=== PATIENT | male | born 1950 | race Caucasian/White ===

== ENCOUNTER → 2018-04-25 | Outpatient (REF) | payer MEDICARE ==
[2018-04-25 12:55] LABS: HEMATOCRIT 45.4 % (42.0-52.0); HEMOGLOBIN 15.2 g/dl (13.5-17.5); MEAN CORPUSCULAR HEMOGLOBIN 29.8 pg (27.0-33.0); MEAN CORPUSCULAR HGB CONC 33.5 g/dl (32.0-36.5); PLATELET COUNT, AUTOMATED 232 10^3/uL (150-450); RED CELL DISTRIBUTION WIDTH 14.9 % (11.5-14.5); WHITE BLOOD COUNT 7.1 10^3/uL (4.0-10.0)
[2018-04-25 13:32] LABS: ALBUMIN/GLOBULIN RATIO 1.18 (1.00-1.93); ALKALINE PHOSPHATASE 89 U/L (45-117); ALT/SGPT 34 U/L (12-78); ANION GAP 10 MEQ/L (8-16); AST/SGOT 24 U/L (7-37); BILIRUBIN,TOTAL 0.4 MG/DL (0.2-1.0); BLOOD UREA NITROGEN 28 MG/DL (7-18); CALCIUM LEVEL 9.6 MG/DL (8.8-10.2); CARBON DIOXIDE LEVEL 25 MEQ/L (21-32); CHLORIDE LEVEL 104 MEQ/L (98-107); CHOLESTEROL LEVEL 246 MG/DL (<200); CHOLESTEROL RISK RATIO 4.555 (<5); CREATININE FOR GFR 0.87 MG/DL (0.70-1.30); FREE T4 1.02 NG/DL (0.76-1.46); GLOMERULAR FILTRATION RATE > 60.0 (>49); GLUCOSE, FASTING 137 MG/DL (70-100); HDL CHOLESTEROL 54 MG/DL (>40); NON-HDL-C 192 MG/DL; POTASSIUM SERUM 4.3 MEQ/L (3.5-5.1); SODIUM LEVEL 139 MEQ/L (136-145); TOTAL PROTEIN 7.4 GM/DL (6.4-8.2); TRIGLYCERIDES LEVEL 453 MG/DL (<150)
[2018-04-25 13:38] LABS: MALB URINE SIEMENS 89.4 MG/L; MAU/CREAT RATIO 95.1 MCG/MG (0.0-30.0)
[2018-04-25 13:40] LABS: TOTAL 25(OH) VITAMIN D 24.2 NG/ML (30.0-100.0)
[2018-04-25 14:11] LABS: ESTIMATED AVERAGE GLUCOSE 166 MG/DL (60-110); HEMOGLOBIN A1c 7.4 %
== END ==
LOC: M SFHCADAM 08:25
DX: E11.9 Type 2 diabetes mellitus without complications (principal); I10 Essential (primary) hypertension; E78.00 Pure hypercholesterolemia, unspecified
CPT/HCPCS: 84443

== ENCOUNTER 2018-06-12 07:45 | Day surgery (SDC) | payer MEDICARE ==
[2018-06-12] MEDS: NS 1,000 ML IV (08:15)
[2018-06-12] MEDS ORDERED: PROPOFOL 200 MG/20 ML VIAL As Ordered ×2 (08:59→09:09)
[2018-06-12] MEDS ORDERED: LIDOCAINE 2% INJ 100 MG/5 ML SDV (FOR ANES.) As Ordered (08:59)
[2018-06-12] MEDS ORDERED: ONDANSETRON 4MG/2ML VIAL (J2405) As Ordered (08:59)
== END 2018-06-12 09:47 | disposition home or self-care (01) ==
LOC: M OPP 07:45
DX: Z12.11 Encounter for screening for malignant neoplasm of colon (principal); Z80.0 Family history of malignant neoplasm of digestive organs; Z86.010 Personal history of colon polyps; Z86.19 Personal history of other infectious and parasitic diseases; K62.89 Other specified diseases of anus and rectum; K64.4 Residual hemorrhoidal skin tags; K64.8 Other hemorrhoids; K57.30 Diverticulosis of large intestine without perforation or abscess without bleeding; I10 Essential (primary) hypertension; E78.5 Hyperlipidemia, unspecified; E11.9 Type 2 diabetes mellitus without complications; K52.9 Noninfective gastroenteritis and colitis, unspecified; K21.9 Gastro-esophageal reflux disease without esophagitis; R12 Heartburn; F41.9 Anxiety disorder, unspecified; Z85.46 Personal history of malignant neoplasm of prostate; Z92.3 Personal history of irradiation; J45.909 Unspecified asthma, uncomplicated; G47.8 Other sleep disorders; G47.30 Sleep apnea, unspecified; R06.83 Snoring; Z87.442 Personal history of urinary calculi; E66.9 Obesity, unspecified; Z88.1 Allergy status to other antibiotic agents; Z88.0 Allergy status to penicillin; Z88.8 Allergy status to other drugs, medicaments and biological substances; Z79.4 Long term (current) use of insulin; Z79.899 Other long term (current) drug therapy; Z80.42 Family history of malignant neoplasm of prostate
CPT/HCPCS: G0105

== ENCOUNTER → 2018-09-26 | Outpatient (REF) | payer MEDICARE ==
[~2018-09-26] MED LIST: ACTO30TA15 PO; ADV100INH INH; ALIG4CAP PO; BUPR150T5 PO; CLIN150C14 PO; FISH7.5C PO; GLIP10TA18 PO; INVO300T PO; LIPI80TA PO; NEUR600T PO; POTA10TA16 PO; PROZ40CA PO; RANI75TA15 PO; SOLI1INJ SC; VENTAER INH; ZEST1TAB3 PO; ZYLO300T6 PO
[2018-09-26 13:30] LABS: ALBUMIN 3.8 GM/DL (3.2-5.2); ALT/SGPT 26 U/L (12-78); BILIRUBIN,TOTAL 0.6 MG/DL (0.2-1.0); BLOOD UREA NITROGEN 22 MG/DL (7-18); CALCIUM LEVEL 9.6 MG/DL (8.8-10.2); CARBON DIOXIDE LEVEL 26 MEQ/L (21-32); CHLORIDE LEVEL 101 MEQ/L (98-107); CREATININE FOR GFR 0.89 MG/DL (0.70-1.30); GLOMERULAR FILTRATION RATE > 60.0 (>49); GLUCOSE, FASTING 138 MG/DL (70-100); SODIUM LEVEL 136 MEQ/L (136-145); TOTAL PROTEIN 7.5 GM/DL (6.4-8.2)
[2018-09-26 13:42] LABS: HEMOGLOBIN A1c 7.7 %
== END ==
LOC: M SFHCADAM 08:26
PROVIDERS: ATTEND Physician Assistant
DX: E11.29 Type 2 diabetes mellitus with other diabetic kidney complication (principal); E78.2 Mixed hyperlipidemia

== ENCOUNTER → 2018-12-07 | Outpatient (REF) | payer MEDICARE | LOC: M LAB REF 13:35 | PROVIDERS: ATTEND Otolaryngology | DX: L72.3 Sebaceous cyst (principal) ==

== ENCOUNTER → 2019-01-08 | Outpatient (REF) | payer MEDICARE | LOC: M SFHCADAM 10:10 | PROVIDERS: ATTEND Nurse Practitioner Family | DX: C61 Malignant neoplasm of prostate (principal) ==

== ENCOUNTER → 2019-02-07 | Outpatient (CLI) | payer MEDICARE ==
--- NOTE | 2019-02-07 16:00 | REP ---
Chest two views HISTORY: Shortness of breath Comparison: None The lungs are clear. The cardiac silhouette is enlarged. The pulmonary vasculature is normal in appearance. Degenerative change is present in the thoracic spine. IMPRESSION: Cardiomegaly. Electronically Signed by Baldev Leong MD 02/07/2019 03:52 P
== END ==
LOC: M ADAMS 14:50
PROVIDERS: ATTEND Internal Medicine Cardiovascular Disease
DX: I51.7 Cardiomegaly (principal); M51.34 Other intervertebral disc degeneration, thoracic region; R06.02 Shortness of breath

== ENCOUNTER → 2019-02-07 | Outpatient (CLI) | payer MEDICARE ==
[2019-02-07 16:24] LABS: BASO % 0.2 % (0.0-1.0); EOS # 0.2 10^3/uL (0.0-0.50); EOS % 1.9 % (0.0-3.0); HEMATOCRIT 47.6 % (42.0-52.0); HEMOGLOBIN 15.8 g/dl (13.5-17.5); LYMPH # 1.2 10^3/uL (1.5-4.5); MEAN CORPUSCULAR HEMOGLOBIN 30.3 pg (27.0-33.0); MEAN CORPUSCULAR HGB CONC 33.2 g/dl (32.0-36.5); MEAN CORPUSCULAR VOLUME 91.2 fl (80.0-96.0); MONO # 0.6 10^3/uL (0.0-0.8); MONO % 6.9 % (0.0-5.0); NEUTROPHILS # 6.8 10^3/uL (1.8-7.7); NEUTROPHILS % 76.7 % (36.0-66.0); PLATELET COUNT, AUTOMATED 233 10^3/uL (150-450); RED BLOOD COUNT 5.22 10^6/uL (4.30-6.10); WHITE BLOOD COUNT 8.9 10^3/uL (4.0-10.0)
[2019-02-07 16:46] LABS: ALBUMIN 3.9 GM/DL (3.2-5.2); ALT/SGPT 30 U/L (12-78); BILIRUBIN,TOTAL 0.6 MG/DL (0.2-1.0); BLOOD UREA NITROGEN 18 MG/DL (7-18); CALCIUM LEVEL 10.3 MG/DL (8.8-10.2); CARBON DIOXIDE LEVEL 28 MEQ/L (21-32); CHLORIDE LEVEL 103 MEQ/L (98-107); CREATININE FOR GFR 1.02 MG/DL (0.70-1.30); FERRITIN 32 NG/ML (26-388); GLOMERULAR FILTRATION RATE > 60.0 (>49); GLUCOSE, FASTING 108 MG/DL (70-100); NT-PRO BNP 33 PG/ML (<125); POTASSIUM SERUM 3.9 MEQ/L (3.5-5.1); SODIUM LEVEL 141 MEQ/L (136-145); TOTAL PROTEIN 7.4 GM/DL (6.4-8.2)
== END ==
LOC: M LABDRWAD 14:46
PROVIDERS: ATTEND Internal Medicine Cardiovascular Disease
DX: R06.02 Shortness of breath (principal); I51.7 Cardiomegaly; M51.34 Other intervertebral disc degeneration, thoracic region

== ENCOUNTER → 2019-05-20 | Outpatient (REF) | payer MEDICARE ==
[2019-05-20 12:45] LABS: ALBUMIN 3.9 GM/DL (3.2-5.2); ALT/SGPT 31 U/L (12-78); BILIRUBIN,TOTAL 0.7 MG/DL (0.2-1.0); BLOOD UREA NITROGEN 26 MG/DL (7-18); CALCIUM LEVEL 9.8 MG/DL (8.8-10.2); CARBON DIOXIDE LEVEL 27 MEQ/L (21-32); CHLORIDE LEVEL 104 MEQ/L (98-107); GLOMERULAR FILTRATION RATE > 60.0 (>49); GLUCOSE, FASTING 123 MG/DL (70-100); POTASSIUM SERUM 4.1 MEQ/L (3.5-5.1); SODIUM LEVEL 141 MEQ/L (136-145)
[2019-05-20 12:55] LABS: HEMOGLOBIN A1c 6.9 %
== END ==
LOC: M SFHCADAM 07:49
PROVIDERS: ATTEND Physician Assistant
DX: E11.29 Type 2 diabetes mellitus with other diabetic kidney complication (principal)

== ENCOUNTER → 2019-10-29 | Outpatient (REF) | payer MEDICARE ==
[2019-10-29 20:35] LABS: HEMATOCRIT 45.2 % (42.0-52.0); HEMOGLOBIN 14.8 g/dl (13.5-17.5); MEAN CORPUSCULAR HGB CONC 32.7 g/dl (32.0-36.5); MEAN CORPUSCULAR VOLUME 91.5 fl (80.0-96.0); PLATELET COUNT, AUTOMATED 209 10^3/uL (150-450); RED BLOOD COUNT 4.94 10^6/uL (4.30-6.10); WHITE BLOOD COUNT 8.6 10^3/uL (4.0-10.0)
[2019-10-29 20:58] LABS: HEMOGLOBIN A1c 7.8 %
[2019-10-29 20:59] LABS: ALBUMIN 3.8 GM/DL (3.2-5.2); ALT/SGPT 26 U/L (12-78); BILIRUBIN,TOTAL 0.5 MG/DL (0.2-1.0); BLOOD UREA NITROGEN 24 MG/DL (7-18); CALCIUM LEVEL 9.7 MG/DL (8.8-10.2); CARBON DIOXIDE LEVEL 25 MEQ/L (21-32); CHLORIDE LEVEL 106 MEQ/L (98-107); CREATININE FOR GFR 0.89 MG/DL (0.70-1.30); GLOMERULAR FILTRATION RATE > 60.0 (>49); GLUCOSE, FASTING 156 MG/DL (70-100); NT-PRO BNP 92 PG/ML (<125); SODIUM LEVEL 139 MEQ/L (136-145)
== END ==
LOC: M SFHCADAM 15:19
PROVIDERS: ATTEND Physician Assistant
DX: I50.31 Acute diastolic (congestive) heart failure (principal); I87.2 Venous insufficiency (chronic) (peripheral); E11.29 Type 2 diabetes mellitus with other diabetic kidney complication
CPT/HCPCS: 80053; 83036; 83880; 85027; G0463

== ENCOUNTER → 2019-11-12 | Outpatient (REF) | payer MEDICARE ==
[2019-11-12 16:53] LABS: ALBUMIN 3.8 GM/DL (3.2-5.2); ALT/SGPT 33 U/L (12-78); BILIRUBIN,TOTAL 0.6 MG/DL (0.2-1.0); BLOOD UREA NITROGEN 25 MG/DL (7-18); CALCIUM LEVEL 9.6 MG/DL (8.8-10.2); CARBON DIOXIDE LEVEL 27 MEQ/L (21-32); CHLORIDE LEVEL 106 MEQ/L (98-107); CREATININE FOR GFR 1.08 MG/DL (0.70-1.30); GLOMERULAR FILTRATION RATE > 60.0 (>49); GLUCOSE, FASTING 152 MG/DL (70-100); SODIUM LEVEL 140 MEQ/L (136-145); TOTAL PROTEIN 7.3 GM/DL (6.4-8.2)
== END ==
LOC: M SFHCADAM 14:47
PROVIDERS: ATTEND Physician Assistant
DX: I87.2 Venous insufficiency (chronic) (peripheral) (principal)

== ENCOUNTER → 2019-12-09 | Outpatient (REF) | payer MEDICARE ==
[2019-12-09 12:41] LABS: HEMATOCRIT 46.1 % (42.0-52.0); HEMOGLOBIN 15.5 g/dl (13.5-17.5); MEAN CORPUSCULAR HEMOGLOBIN 29.9 pg (27.0-33.0); MEAN CORPUSCULAR HGB CONC 33.6 g/dl (32.0-36.5); PLATELET COUNT, AUTOMATED 205 10^3/uL (150-450); RED BLOOD COUNT 5.18 10^6/uL (4.30-6.10); WHITE BLOOD COUNT 7.1 10^3/uL (4.0-10.0)
[2019-12-09 13:02] LABS: HEMOGLOBIN A1c 7.5 %
[2019-12-09 13:14] LABS: MALB URINE SIEMENS 39.4 MG/L; MAU/CREAT RATIO 27.1 MCG/MG (0.0-30.0)
[2019-12-09 13:21] LABS: ALBUMIN 3.7 GM/DL (3.2-5.2); ALT/SGPT 33 U/L (12-78); BILIRUBIN,TOTAL 0.6 MG/DL (0.2-1.0); BLOOD UREA NITROGEN 33 MG/DL (7-18); CALCIUM LEVEL 9.2 MG/DL (8.8-10.2); CARBON DIOXIDE LEVEL 29 MEQ/L (21-32); CHLORIDE LEVEL 101 MEQ/L (98-107); CHOLESTEROL LEVEL 222 MG/DL (<200); CHOLESTEROL RISK RATIO 4.625 (<5); CREATININE FOR GFR 1.07 MG/DL (0.70-1.30); FREE T4 1.14 NG/DL (0.76-1.46); GLOMERULAR FILTRATION RATE > 60.0 (>49); GLUCOSE, FASTING 163 MG/DL (70-100); HDL CHOLESTEROL 48 MG/DL (>40); NON-HDL-C 174 MG/DL; POTASSIUM SERUM 3.7 MEQ/L (3.5-5.1); PROSTATIC SPECIFIC AG MONITOR 0.14 NG/ML (< 4.00); SODIUM LEVEL 138 MEQ/L (136-145); TOTAL PROTEIN 7.2 GM/DL (6.4-8.2); TRIGLYCERIDES LEVEL 423 MG/DL (<150)
== END ==
LOC: M SFHCADAM 09:22
PROVIDERS: ATTEND Physician Assistant
DX: E78.2 Mixed hyperlipidemia (principal); E08.40 Diabetes mellitus due to underlying condition with diabetic neuropathy, unspecified; Z87.442 Personal history of urinary calculi; J45.30 Mild persistent asthma, uncomplicated; C61 Malignant neoplasm of prostate

== ENCOUNTER → 2019-12-17 | Outpatient (REF) | payer MEDICARE ==
[~2019-12-17] MED LIST changes: +BUPR-365 PO; +CEPH500C PO; +COLE625TAB PO; +JARD1TAB3 PO; +POTA10808 PO; +TORS10TA3 PO
== END ==
LOC: M LAB REF 12:17
PROVIDERS: ATTEND Podiatrist
DX: M79.672 Pain in left foot (principal)

== ENCOUNTER 2019-12-18 18:36 | Inpatient (IN) | payer MEDICARE ==
[~2019-12-18] VITALS: Ht 180.3 cm; Wt 120.1 kg
[~2019-12-18 18:36] MED LIST changes: -BUPR-365 PO; -CEPH500C PO; -COLE625TAB PO; -JARD1TAB3 PO; -POTA10808 PO; -TORS10TA3 PO
[2019-12-18] MEDS ORDERED: COLE625TAB PO (19:12)
[2019-12-18] MEDS ORDERED: JARD1TAB3 PO (19:12)
[2019-12-18] MEDS ORDERED: SOLI1INJ SC (19:12)
[2019-12-18] MEDS ORDERED: CEPH500C PO (19:12)
[2019-12-18] MEDS ORDERED: POTA10808 PO (19:12)
[2019-12-18] MEDS ORDERED: TORS10TA3 PO (19:12)
[2019-12-18 19:30] LABS: BASO % 0.1 % (0.0-1.0); EOS # 0.1 10^3/uL (0.0-0.5); EOS % 0.6 % (0.0-3.0); HEMATOCRIT 38.8 % (42.0-52.0); HEMOGLOBIN 12.9 g/dl (13.5-17.5); LYMPH # 0.7 10^3/uL (1.5-5.0); LYMPH % 4.7 % (24.0-44.0); MEAN CORPUSCULAR HEMOGLOBIN 29.1 pg (27.0-33.0); MEAN CORPUSCULAR HGB CONC 33.2 g/dl (32.0-36.5); MEAN CORPUSCULAR VOLUME 87.6 fl (80.0-96.0); MONO # 1.1 10^3/uL (0.0-0.8); MONO % 7.6 % (0.0-5.0); NEUTROPHILS # 12.3 10^3/uL (1.5-8.5); NEUTROPHILS % 86.5 % (36.0-66.0); PLATELET COUNT, AUTOMATED 217 10^3/uL (150-450); RED BLOOD COUNT 4.43 10^6/uL (4.30-6.10); WHITE BLOOD COUNT 14.2 10^3/uL (4.0-10.0)
[2019-12-18] MEDS ORDERED: NS 1,000 ML IV ONE (19:30)
[2019-12-18] MEDS ORDERED: cefTRIAXone SOD 2 GM in D5W MINI-BAG PLUS 50 ML IV ONE (19:30)
[2019-12-18 19:55] LABS: ALBUMIN 2.8 GM/DL (3.2-5.2); BILIRUBIN,DIRECT 0.3 MG/DL (0.0-0.2); BILIRUBIN,TOTAL 0.9 MG/DL (0.2-1.0); CALCIUM LEVEL 8.8 MG/DL (8.8-10.2); CREATININE FOR GFR 1.55 MG/DL (0.70-1.30); GLOMERULAR FILTRATION RATE 47.8 (>49); POTASSIUM SERUM 3.9 MEQ/L (3.5-5.1); TOTAL PROTEIN 6.9 GM/DL (6.4-8.2)
[2019-12-18] MEDS ORDERED: ACETAMINOPHEN TAB 650MG DOSE (2X325MG) PO ONE (20:15)
--- NOTE | 2019-12-18 20:21 | REP ---
CHEST, PORTABLE: AP portable view of the chest is performed and compared to prior study of 02/07/2019. Cardiomegaly is again noted. There is again mild elevation of the right hemidiaphragm, unchanged. No new infiltrate is seen. Bilateral interstitial prominence is stable. IMPRESSION: Cardiomegaly and chronic changes, stable. No acute infiltrate. Electronically Signed by Marcelo Jessica MD 12/19/2019 09:08 A
[2019-12-18] MEDS ORDERED: ISOVUE-370 76% 100ML VIAL (Q9967) As Ordered ONE (20:31)
--- NOTE | 2019-12-18 22:07 | REPVR ---
PROCEDURE INFORMATION: Exam: CT Angiography Chest With Contrast Exam date and time: 12/18/2019 9:36 PM Age: 69 years old Clinical indication: Shortness of breath; Additional info: Shortness of breathe TECHNIQUE: Imaging protocol: Computed tomographic angiography of the chest with intravenous contrast. 3D rendering: MIP and/or 3D reconstructed images were created by the technologist. Radiation optimization: All CT scans at this facility use at least one of these dose optimization techniques: automated exposure control; mA and/or kV adjustment per patient size (includes targeted exams where dose is matched to clinical indication); or iterative reconstruction. Contrast material: ISOVUE 370; Contrast volume: 75 ml; Contrast route: IV; COMPARISON: SC PORTABLE CHEST X-RAY 12/18/2019 7:28 PM FINDINGS: Pulmonary arteries: There are no pulmonary emboli. Aorta: The aorta demonstrates mild atherosclerotic calcification. There is no aortic dissection or aneurysm. Lungs: Bilateral geographic ground-glass opacities most pronounced in the mid and lower lung zones likely related to atelectasis in this patient with a poor inspiratory effort. Although nonspecific, clinical correlation to exclude infection suggested. Pleural space: Bilateral pleural thickening in the lower lung zones. Heart: Cardiomegaly. There is moderate atherosclerotic calcification of the coronary arteries. Lymph nodes: Unremarkable. No enlarged lymph nodes. Bones/joints: The spine demonstrates mild degenerative changes. Soft tissues: Unremarkable. IMPRESSION: 1. Bilateral geographic ground-glass opacities most pronounced in the mid and lower lung zones likely related to atelectasis in this patient with a poor inspiratory effort. Although nonspecific, clinical correlation to exclude infection suggested. 2. Bilateral pleural thickening in the lower lung zones. 3. There is no aortic dissection or aneurysm. 4. Cardiomegaly. 5. There are no pulmonary emboli. Electronically signed by: Ryan Klein On 12/18/2019 22:07:22 PM
--- NOTE | 2019-12-18 22:44 | REPVR ---
PROCEDURE INFORMATION: Exam: US Duplex Left Lower Extremity Veins, Limited Exam date and time: 12/18/2019 10:30 PM Age: 69 years old Clinical indication: Pain; Leg, lower; Left; Additional info: Left leg swelling/cellulitis TECHNIQUE: Imaging protocol: Real-time Duplex ultrasound of the Left Lower Extremity with 2-D squires scale, color Doppler flow and spectral waveform analysis with image documentation. Limited exam focused on the left lower extremity veins. COMPARISON: No relevant prior studies available. FINDINGS: Left deep veins: Unremarkable. The common femoral, femoral, proximal profunda femoral and popliteal veins are patent without thrombus. Normal Doppler waveforms. Normal compressibility and/or augmentation response. Left superficial veins: Unremarkable. Saphenofemoral junction is patent without thrombus. Soft tissues: Unremarkable. IMPRESSION: No acute findings. No evidence of deep vein thrombosis. Electronically signed by: Ryan Klein On 12/18/2019 22:43:35 PM
[2019-12-18] MEDS ORDERED: NS 2,610 ML in IV 1 EA IV ONE (23:00)
[2019-12-19] VITALS (16 sets, daily range): BP systolic 112–120; BP diastolic 60–66; O2SAT 90–96
[2019-12-19] MEDS ORDERED: DEXTROSE 50% 50 ML SYRINGE IV PRN
[2019-12-19] MEDS ORDERED: GLUCAGON FOR INJ 1 MG VIAL (J1610) SC PRN
[2019-12-19] MEDS ORDERED: NS 1,000 ML IV ONE
[2019-12-19] MEDS ORDERED: GLUCOSE 4 GM CHEW TABLET PO PRN
[2019-12-19] MEDS ORDERED: ALBUTEROL 90 MCG/ACT 8GM HFA INHALER INH PRN (00:15)
[2019-12-19] MEDS ORDERED: NS 1,000 ML IV SCH (00:15)
[2019-12-19 00:24] LABS: C REACTIVE PROTEIN QUANTITATIV 33.6 MG/DL (0.00-0.30)
[2019-12-19 00:33] LABS: ERYTHROCYTE SEDIMENTATION RATE 60 mm/hr (0-20)
[2019-12-19] MEDS ORDERED: BUPR-365 PO (00:46)
[2019-12-19 00:57] LABS: INR 1.3; PROTHROMBIN TIME 15.9 SECONDS (11.8-14.0)
[2019-12-19 00:58] LABS: PARTIAL THROMBOPLASTIN TIME 42.6 SECONDS (25.0-38.4)
--- NOTE | 2019-12-19 01:00 | HPEPDOC ---
[facility] Medical History & Physical Date of Admission Dec 19, 2019 Date of Service: Dec 19, 2019 History and Physical CHIEF COMPLAINT: Shortness of breath and fevers HISTORY OF PRESENT ILLNESS: This is a 69-year-old male with multiple comorbidities who presented to the ER with shortness of breath and fevers for the last 2 days. He notes that his temp has been in the high of 101. Endorse having a history of asthma and does not feel like this an asthma exacerbation. He notes he feel like he can't take deep breaths and his chest feels very tight. He is very somber during the exam for his recently passed 6 days prior and he just had a viewing on Monday with his family. He states he's been on Covid precautions for the last couple weeks but did interact with his daughter and this past week. He does not believe anyone has COVID. He is also complaining chronic foot wound on his left base of his fifth toe which has been evaluated by his mineral mixer, Dr. Hess in the past 1 month. Initially he was treated with salve, which did not help so was given Cephalexin the day prior to presenting to the ER. He has noticed the erythema and edema in his left lower extremity has worsened. He described the left leg as tight and he is unable bend at the ankles and toe for they feel full. He does not complain of any pain for he has diabetes neuropathy. He does state his diabetes is relatively controlled.He did have recent medication adjustments of his diuretics and hasn't noticed any improvement of his unilateral lower extremity edema. Lastly, he has is complaing of nausea and diarrheal episodes last 24 hours. Describes the diarrhea as loose, nonbloody and watery in nature and he has had relatively 4 episodes in the last 24 hours. He does have a history of chronic diarrhea and C. difficile in 2018. In the ER he was found to have a temp of 100.9, pulse of 100, respiration 24 blood pressure 88/54 (65) pulse ox 88% on room air. He was placed on 2 L of nasal cannula and saturation improved to 92-94%, chest x-ray did not show any new infiltrates but CT angios of the chest did show ground-glass opacity, which denies hearing in the past. Left lower extremity ultrasound did not show any DVT. CBC did show a leukocytosis of 14.2 with a normal lactic acid. His hypotension did respond to fluid resuscitation and hospitalist team was then called for admission. PAST MEDICAL HISTORY: 1. DM Type 2 with Neuropathy. 2. History of prostate cancer s/p RT 2007 3. History of kidney stones due to high dose potassium 4. Hyperlipidemia 5. Hypertension 6. Mild intermittent asthma controlled with Advair 7. Rosacea 8. Anxiety - stable Buproprione and Prozac since 2011. 9. 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 10. Erectile dysfunction 11. JOHN on BIPAP. 12. Clostridium Difficile 05/2018. 13. Morbid Obesity. HOME MEDICATIONS: Please see below. ALLERGIES: Please see below PAST SURGICAL HISTORY: 1. Tonsillectomy age 8 2. Adenoidectomy age 8 3. Vasectomy 1990 4. Metal? in Middle ear bone in both ears so NO MRI'S 5. BL ear surgeries x 3 [phone] 6. Prostate Biopsy,radiation 2009 7. Hernia repair 2014 8. Cyst removed from face- Dr. Smart. 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 ETOH: Denies, Illicit drug use: Denies, CODE STATUS: Full code FAMILY HISTORY:Reviewed and noncontributory REVIEW OF SYSTEMS: 10 systems reviewed and negative other than HPI PHYSICAL EXAMINATION: VITAL SIGNS: See below GENERAL: Morbidly obese 69-year-old male laying in bed, awake alert and oriented appears short of breath when speaking greater than 6-8 words sentences HEENT: Atraumatic cephalic rosacea on the cheeks, nasal cannula, large neck g irth so cannot evaluate JVD CARDIOVASCULAR: Distant heart sounds due to large body habitus. Can't appreciate S1-S2 sounds with no audible murmurs noted. RESPIRATORY: Surprisingly clear to auscultate bilaterally in the upper and lower regions. No e-a egophony appreciated no dullness to percussion, no wheezing or rhonchi noted. ABDOMINAL: Morbidly obese soft abdomen with positive bowel sounds in all 4 quadrants. No tenderness to palpation EXTREMITIES: 2 x 3 ulcerative lesion appreciated at the base of the left fifth toe. Not measured. No discharge was expressed. Patient does not note any tenderness on palpation . Neuropathy. Numbness left foot stops below the knee. Nonpitting edema appreciated on the left foot in an very minimal 1+ pitting edema the patient on the left leg. NEUROLOGICAL: No gross focal deficits noted. Baseline neuropathy appreciated bilaterally lower extremities. PSYCHOLOGICAL: Somber LABORATORY DATA: See below. MICROBIOLOGY: Please see below. IMAGIN12/18/2019 Chest x-ray IMPRESSION: Cardiomegaly and chronic changes, stable. No acute infiltrate. Vascular ultrasound LE IMPRESSION: No acute findings. No evidence of deep vein thrombosis. CT angios the chest IMPRESSION: 1. Bilateral geographic ground-glass opacities most pronounced in the mid and lower lung zones likely related to atelectasis in this patient with a poor inspiratory effort. Although nonspecific, clinical correlation to exclude infection suggested. 2. Bilateral pleural thickening in the lower lung zones. 3. There is no aortic dissection or aneurysm. 4. Cardiomegaly. 5. There are no pulmonary emboli. ASSESSMENT & PLAN: This is a 69-year-old male with multiple comorbidities who presented to the ER with shortness of breath and fevers. PROBLEMS: 1. Acute respiratory hypoxemia unsure if this secondary to a bacterial pneumonia. Respiratory panel negative. His initial complaint coming in was shortness of breath fevers, lungs apprising really sound good on exam. PCR Co vid amplification testing in-house was negative but based on CT of the chest showing groundglass opacity and requiring oxygen which he does not need home will still send out for Covid testing and place him under PUI.. He does have multiple risk factors such as hypertension, diabetes, asthma, BMI greater than 30, and over the age of 60. Will order baseline labs at this current time with CRP, ferritin, Procardia calcitonin, LDH, d-dimer, fibrinogen and PT PTT. Antibiotics we have him on vancomycin and ceftriaxone to cover gram-positive and gram-negative. Maintain O2 >92%, At this current time, did not give hydroxychloroquine, but will need to consider it if baseline labs are not promising and oxygen requirement is going up. 2. Sepsis - possible source is left lower extremity ulcer. On exam left leg, appears swollen, erythematous and nonpitting edema. Open wound appreciated at the base of the left fifth toe. Measuring 2 x 3 cm unsure of depth. No pus discharge can be expressed. Nontender to palpation. But he does have neuropathy. Follows podiatry outpatient (Dr. Hess). Continue with vancomycin and ceftriaxone. Consult podiatry and set up telemetry medicine with Dr. Magaña for wound care recommendations. He does respond to IV fluids appropriately so will continue after successful worse with normal saline at 100 mL an hour. Does not require any pressors. MRIs cannot be done due to metal in his ears. Foot x- ray ordered. CRP ESR currently pending. Ultrasound of the left lower extremity is negative for DVTs. If suspicious of possible osteomyelitis can consider CT of the lower extremity if needed. 3. KYLE office secondary to prerenal azotemia from problem #2. Will monitor with daily BMPs will pressure did improve with fluid resuscitation. Will monitor. 4. Type 2 diabetes with neuropathy. Held home medication. Consistent carbohydrate diet with ISS before meals daily at bedtime. 5. Mild intermittent asthma. In addition to problem 1 will continue with his home Advair treatments. No wheezing on exam. 6. Hypertension. Due to problem 2 will hold home hypertensive medications. 7. Hyperlipidemia. Continue atorvastatin 8. JOHN on BiPAP. Due to problem 1 at this current time won't start his BiPAP tonight but can consider restarting it tomorrow evening. 9. History of C. difficile 2018. And a history of diarrhea from his radiation. With Recent antibiotics even though started yesterday and complaining of watery diarrhea. will obtain GI panel. 10. History of anxiety stable on bupropion and Prozac since 2011. recently last . Continue as prescribed 11. Morbid obesity. Complicates care. DVT PROPHYLAXIS: Lovenox 40mg Daily HOSPITALIST ATTENDING PHYSICIAN ADDENDUM: I have independently interviewed and examined the patient at the bedside, and agree with the aforementioned management plans and physical findings as documented by my Resident Physician. The patient's questions and concerns have been satisfactorily addressed, and the patient was encouraged to contact the hospitalist service for any new issues. Vital Signs Vital Signs Date Time Temp Pulse Resp B/P (MAP) Pulse Ox O2 Delivery O2 Flow Rate FiO2 12/18/19 22:30 98.7 88 24 97/53 (68) 90 12/18/19 21:00 Nasal Cannula 2.0 Laboratory Data Labs 24H Laboratory Tests 2 12/18/19 19:17: Immature Granulocyte % (Auto) 0.5, Neutrophils (%) (Auto) 86.5H, Lymphocytes (%) (Auto) 4.7L, Monocytes (%) (Auto) 7.6H, Eosinophils (%) (Auto) 0.6, Basophils (%) (Auto) 0.1, Neutrophils # (Auto) 12.3H, Lymphocytes # (Auto) 0.7L, Monocytes # (Auto) 1.1H, Eosinophils # (Auto) 0.1, Basophils # (Auto) 0.0, Nucleated Red B lood Cells % (auto) 0.0, Anion Gap 8, Glomerular Filtration Rate 47.8L, Lactic Acid Level 1.1, Calcium Level 8.8, Total Bilirubin 0.9, Direct Bilirubin 0.3H, Aspartate Amino Transf (AST/SGOT) 23, Alanine Aminotransferase (ALT/SGPT) 23, Alkaline Phosphatase 98, WZ-Ucu-Y-Type Natriuretic Peptide 327H, Total Protein 6.9, Albumin 2.8L, Albumin/Globulin Ratio 0.68L 12/18/19 19:18: Coronavirus (COVID-19)(PCR) NEGATIVE CBC/BMP Laboratory Tests 12/18/19 19:17 Microbiology Microbiology 12/18/19 Respiratory Panel (PCR) - Final, Complete 12/18/19 Blood Culture, Received Pending 12/18/19 Blood Culture, Received Pending Home Medications Scheduled Allopurinol (Zyloprim) 300 Mg Tab, 300 MG PO DAILY Atorvastatin Calcium (Lipitor) 80 Mg Tab, 80 MG PO DAILY Bupropion HCl (Bupropion Xl) 150 Mg Tab.er.24h, 150 MG PO DAILY Cephalexin (Cephalexin) 500 Mg Capsule, 500 MG PO Q6H started 12/17/19 for 10 days Colesevelam Hydrochloride (Welchol) 625 Mg Tablet, 1,875 MG PO BID Empagliflozin (Jardiance) 25 Mg Tablet, 25 MG PO DAILY Fluoxetine HCl (Prozac) 40 Mg Cap, 40 MG PO DAILY Gabapentin (Neurontin) 600 Mg Tab, 600 MG PO TID Glipizide (Glipizide ER) 10 Mg Tab, 10 MG PO DAILY Insulin Glargine/Lixisenatide (Soliqua 100 Unit-33 Mcg/ml Pen) 3 Ml Insuln.pen, 60 UNITS SC DAILY Lisinopril/Hydrochlorothiazide (Zestoretic 20-25 mg Tablet) 1 Tab Tab, 1 TAB PO DAILY Lyons-3/Dha/Epa/Fish Oil (Fish Oil EC 1,000 mg Softgel) 1 Cap Cap, 1 CAP PO DAILY Pioglitazone HCl (Actos) 30 Mg Tab, 30 MG PO DAILY Potassium Citrate (Potassium Citrate 10MEQ (Urocit-K)) 10 Meq Tablet.er, 10 MEQ PO BID Salmeterol/Fluticasone (Advair 100-50 Diskus) 28 Puff/Inhaler Aerp, 1 PUFF INH BID Torsemide (Torsemide) 10 Mg Tablet, 10 MG PO DAILY Scheduled PRN Albuterol Sulfate (Ventolin Hfa) 108 Mcg/Act Aer, 2 PUFF INH Q6H PRN for SHORTNE SS OF BREATH Allergies Coded Allergies: Penicillins (Verified Allergy, Mild, rash, 12/18/19) erythromycin base (Verified Allergy, Mild, RASH, 12/18/19) metformin (Verified Adverse Reaction, Mild, diarrhea, 12/18/19) MISAEL GORDON DO Dec 19, 2019 00:59 ANUSHA VILLANUEVA MD Dec 19, 2019 22:03
[2019-12-19 01:01] LABS: D-DIMER QUANT 2122.59 ng/ml (<500)
--- NOTE | 2019-12-19 02:38 | REP ---
Clinical: Swelling. Infection. Technique: AP and lateral views of the left foot. Findings: Heterotopic ossification with irregular periosteal reaction involving the fourth and fifth metatarsal bones along with evidence for old fracture involving the fifth toe noted. Significant overlying soft tissue swelling is appreciated. No obvious subcutaneous emphysema or foreign body. No obvious acute injury. Impression: Findings suggest cellulitis an acute infectious/inflammatory process. Osteomyelitis cannot definitively be excluded based on current radiographic examination. Electronically Signed by Alistair Sam MD 12/19/2019 02:30 A
[2019-12-19] MEDS ORDERED: VANCOMYCIN HCL 1,000 MG, VIAL MATE ADAPTER 1 EACH in D5W 250 ML IV ONE ×2 (03:00→04:00)
[2019-12-19] MEDS: GABAPENTIN 300 MG CAP PO SCH ×4 (03:42→21:21)
--- NOTE | 2019-12-19 04:50 | PHACANCOPD ---
PHARMACY VANCOMYCIN DOSING Pt Demographics Demographics Patient Age:69 , Weight:120.450 , Gender: male Adjusted Body Weight Date: 12/19/19, Adjusted Body Weight: Kg Events Past 24 Hours Events Past 24 Hours: YES: Fever, Pending Diagnostics Vancomycin Vancomycin indication: CELLULITIS LEFT FOOT Vancomycin Target Ranges: 10-20 mcg/ml Vancomycin Load Y/N: Yes Load Dose Date Time Vancomycin Load Dose: 2 GM Date: 12/18 Time: 03&04:00 Vancomycin Dose Date: 12/19/19. Current Vancomycin Dose: [1 GM Q12H] Intermittent Dosing?: No Labs Micro Microbiology 12/18/19 Respiratory Panel (PCR) - Final, Complete 12/18/19 Blood Culture, Received Pending 12/18/19 Blood Culture, Received Pending Creatinine Clearance Date:12/19/19. Creatinine Clearance: [61].CALCULATED Assessment and Plan Maintaining Current Dose?: Yes Reason for dose change: No Dose Change Pharmacist Note Pharmacist Note Date: 12/19/19. Pharmacist note:69YOM,73",120.45KG(ABW=93.4KG) SCR=1.55 ,CALCULATED CRCL=61,ADMITTED AFTER EXPERIENCING FEVER& SOB X 2 DAYS, ALSO PAIN/SWELLING IN LEFT FOOT.ALLERGIES:PEN,ERYTHROMYCIN.TX: CEFTRIAXONE 2 GM Q24H AND PHARMACY DOSED VANCOMYCIN.vANCOMYCIN GM LOAD ADMINISTERED 12/18@03:330/04:30, THEN WILL BEGIN 1 GRAM IV [id number] 12/18@14:00. fIRST TROUGH IS SCHEDULED FOR 12/19@1300(PRIOR TO THE 4TH DOSE)-WILL CONTINUE FOLLOW [facility] Dec 19, 2019 04:50
[2019-12-19 05:27] LABS: BASO % 0.1 % (0.0-1.0); EOS # 0.1 10^3/uL (0.0-0.5); EOS % 0.5 % (0.0-3.0); HEMATOCRIT 36.5 % (42.0-52.0); LYMPH # 0.5 10^3/uL (1.5-5.0); MEAN CORPUSCULAR HEMOGLOBIN 29.4 pg (27.0-33.0); MEAN CORPUSCULAR HGB CONC 32.9 g/dl (32.0-36.5); MEAN CORPUSCULAR VOLUME 89.5 fl (80.0-96.0); MONO # 0.9 10^3/uL (0.0-0.8); MONO % 7.3 % (0.0-5.0); NEUTROPHILS # 10.6 10^3/uL (1.5-8.5); NEUTROPHILS % 87.5 % (36.0-66.0); PLATELET COUNT, AUTOMATED 199 10^3/uL (150-450); RED BLOOD COUNT 4.08 10^6/uL (4.30-6.10); WHITE BLOOD COUNT 12.1 10^3/uL (4.0-10.0)
[2019-12-19 05:56] LABS: CREATININE FOR GFR 1.3 MG/DL (0.70-1.30); GLOMERULAR FILTRATION RATE 58.6 (>49); POTASSIUM SERUM 3.6 MEQ/L (3.5-5.1)
[2019-12-19] MEDS ORDERED: ENOXAPARIN 40MG/0.4ML SYRINGE (J1650 PER 10MG) SC SCH (06:00)
[2019-12-19 06:25] LABS: FERRITIN 482 NG/ML (26-388); LDH LACTATE DEHYDROGENASE 208 U/L (87-241); NT-PRO BNP 245 PG/ML (<125); TROPONIN I < 0.02 NG/ML (< 0.10)
[2019-12-19] MEDS: ONDANSETRON 4MG/2ML VIAL (J2405 PER 1MG) IV PRN ×2 (06:38→14:45)
[2019-12-19] MEDS: ADVAIR HFA 45/21MCG INHALER INH SCH ×2 (07:25→19:35)
[2019-12-19] MEDS: ATORVASTATIN 20 MG TAB PO SCH (08:40)
[2019-12-19] MEDS: ENOXAPARIN 40MG/0.4ML SYRINGE (J1650 PER 10MG) SC SCH (08:40)
[2019-12-19] MEDS: FLUoxetine 20 MG CAP PO SCH (08:40)
[2019-12-19] MEDS: buPROPion **XL** TABLET 150MG (WELLBUTRIN XL) PO SCH (08:41)
[2019-12-19] MEDS: LACTOBACILLUS ACIDOPHILUS CAP (BACID) PO SCH ×2 (08:41→17:15)
[2019-12-19] MEDS: allopurinoL 300 MG TAB PO SCH (08:41)
[2019-12-19] MEDS: cefTRIAXone SOD 2 GM in D5W MINI-BAG PLUS 50 ML IV SCH (08:42)
[2019-12-19] MEDS ORDERED: SLF 3 ML SYR IV PRN (08:45)
[2019-12-19 08:51] LABS: BASO % 0.1 % (0.0-1.0); EOS # 0.1 10^3/uL (0.0-0.5); EOS % 0.7 % (0.0-3.0); HEMATOCRIT 35.6 % (42.0-52.0); HEMOGLOBIN 11.9 g/dl (13.5-17.5); LYMPH # 0.7 10^3/uL (1.5-5.0); LYMPH % 6.4 % (24.0-44.0); MEAN CORPUSCULAR HEMOGLOBIN 29.8 pg (27.0-33.0); MEAN CORPUSCULAR HGB CONC 33.4 g/dl (32.0-36.5); MEAN CORPUSCULAR VOLUME 89.2 fl (80.0-96.0); MONO # 0.9 10^3/uL (0.0-0.8); MONO % 7.9 % (0.0-5.0); NEUTROPHILS # 9.2 10^3/uL (1.5-8.5); NEUTROPHILS % 84.5 % (36.0-66.0); PLATELET COUNT, AUTOMATED 191 10^3/uL (150-450); RED BLOOD COUNT 3.99 10^6/uL (4.30-6.10); WHITE BLOOD COUNT 10.8 10^3/uL (4.0-10.0)
--- NOTE | 2019-12-19 09:25 | IPNPDOC ---
Date Seen The patient was seen on 12/19/19. Progress Note SUBJECTIVE: 72-year-old male with past medical history of diabetes mellitus, hypertension, hyperlipidemia, prostate cancer is admitted for dyspnea and left foot infection. Patient was seen in the morning, appears anxious, nervous and said mostly because his last week. He reports mild dyspnea and cough, no other complaints. Denies any chest pain, nausea, vomiting or abdominal pain. Patient has chronic diarrhea. 10 point review of system is negative except for above PHYSICAL EXAMINATION: VITAL SIGNS: Please see below. GENERAL: Obese HEENT: Normocephalic, atraumatic, moist mucous membranes NECK: Supple CARDIOVASCULAR EXAMINATION: S1, S2, no murmurs RESPIRATORY EXAMINATION: Scattered rhonchi, no wheezing ABDOMINAL EXAMINATION: Soft, nontender, nondistended, positive bowel sounds EXTREMITIES: Bilateral lower extremity pitting edema SKIN: Left foot and oliver erythematous, warm to touch with an open ulcer located on the plantar surface of left foot. NEUROLOGICAL EXAMINATION: Alert and oriented 3, no focal deficits PSYCHIATRIC EXAMINATION: Calm and cooperative LABORATORY DATA, IMAGING STUDIES, MICROBIOLOGY: Please see below. ASSESSMENT AND PLAN: 69-year-old male with multiple medical comorbidities is admitted for left foot infection. PROBLEMS: 1. Left foot infected ulcer: Was started on outpatient antibiotics by podiatry, worsening, continue broad-spectrum antibiotic coverage, we'll get inpatient podiatry evaluation. 2. Congestive heart failure: Reports history of congestive heart failure, no previous echo in the system, appears slightly volume overloaded, stop IV fluids, will monitor for need of diuretics, hold off for now as patient was hypotensive at the time of presentation. 3. Diabetes mellitus: Sliding scale insulin coverage with meals and at bedtime. 4. COPD: Continue Advair and supplemental oxygen as needed to maintain O2 sats between 80-92%. 5. Hyperlipidemia: Continue atorvastatin DVT prophylaxis: Lovenox. GI prophylaxis: Not needed VS, I&O, 24H, Benedictbonfelix Vital Signs/I&O Vital Signs Date Time Temp Pulse Resp B/P (MAP) Pulse Ox O2 Delivery O2 Flow Rate FiO2 12/19/19 08:00 97.8 96 20 120/62 (81) 93 Nasal Cannula 2.0 I&O- Last 24 Hours up to 6 AM 12/19/19 06:00 Intake Total 3590 ml Balance 3590 ml Laboratory Data 24H LABS Laboratory Tests 2 12/18/19 19:17: Immature Granulocyte % (Auto) 0.5, Neutrophils (%) (Auto) 86.5H, Lymphocytes (%) (Auto) 4.7L, Monocytes (%) (Auto) 7.6H, Eosinophils (%) (Auto) 0.6, Basophils (%) (Auto) 0.1, Neutrophils # (Auto) 12.3H, Lymphocytes # (Auto) 0.7L, Monocytes # (Auto) 1.1H, Eosinophils # (Auto) 0.1, Basophils # (Auto) 0.0, Nucleated Red Blood Cells % (auto) 0.0, Erythrocyte Sedimentation Rate 60H, Anion Gap 8, Glomerular Filtration Rate 47.8L, Lactic Acid Level 1.1, Calcium Level 8.8, Ferritin 466H, Total Bilirubin 0.9, Direct Bilirubin 0.3H, Aspartate Amino Transf (AST/SGOT) 23, Alanine Aminotransferase (ALT/SGPT) 23, Alkaline Phosphatase 98, Lactate Dehydrogenase 160, C-Reactive Protein, Quantitative 33.60H, GT-Box-N-Type Natriuretic Peptide 327H, Total Protein 6.9, Albumin 2.8L, Albumin/Globulin Ratio 0.68L 12/18/19 19:18: Coronavirus (COVID-19)(PCR) NEGATIVE 12/19/19 00:46: Prothrombin Time 15.9H, Prothromb Time International Ratio 1.30, Activated Partial Thromboplast Time 42.6H, Fibrinogen 738H, D-Dimer, Quantitative 2122.59H 12/19/19 04:45: Methicillin-Resist S.aureus DNA PCR NOT DETECTED 12/19/19 04:55: Immature Granulocyte % (Auto) 0.6, Neutrophils (%) (Auto) 87.5H, Lymphocytes (%) (Auto) 4.0L, Monocytes (%) (Auto) 7.3H, Eosinophils (%) (Auto) 0.5, Basophils (%) (Auto) 0.1, Neutrophils # (Auto) 10.6H, Lymphocytes # (Auto) 0.5L, Monocytes # (Auto) 0.9H, Eosinophils # (Auto) 0.1, Basophils # (Auto) 0.0, Nucleated Red Blood Cells % (auto) 0.0, Anion Gap 6L, Glomerular Filtration Rate 58.6, Calcium Level 9.0, Ferritin 482H, Lactate Dehydrogenase 208, Troponin I < 0.02, C- Reactive Protein, Quantitative 29.80H, TP-Ipm-J-Type Natriuretic Peptide 245H 12/19/19 08:09: Immature Granulocyte % (Auto) 0.4, Neutrophils (%) (Auto) 84.5H, Lymphocytes (%) (Auto) 6.4L, Monocytes (%) (Auto) 7.9H, Eosinophils (%) (Auto) 0.7, Basophils (%) (Auto) 0.1, Neutrophils # (Auto) 9.2H, Lymphocytes # (Auto) 0.7L, Monocytes # (Auto) 0.9H, Eosinophils # (Auto) 0.1, Basophils # (Auto) 0.0, Nucleated Red Blood Cells % (auto) 0.0 CBC/BMP Laboratory Tests 12/18/19 19:17 12/19/19 04:55 12/19/19 08:09 Microbiology Microbiology 12/19/19 Coronavirus COVID-19 PCR (MERCEDEZ), Received Pending 12/18/19 Respiratory Panel (PCR) - Final, Complete 12/18/19 Blood Culture, Received Pending 12/18/19 Blood Culture, Received Pending YAMILETH PENA MD Dec 19, 2019 09:25
[2019-12-19 09:38] LABS: INR 1.32; PROTHROMBIN TIME 16.1 SECONDS (11.8-14.0)
[2019-12-19 09:39] LABS: PARTIAL THROMBOPLASTIN TIME 41.6 SECONDS (25.0-38.4)
[2019-12-19 09:41] LABS: D-DIMER QUANT 1977.04 ng/ml (<500)
[2019-12-19] MEDS: HumaLOG INSULIN (NovoLOG) PER UNIT SC SCH ×3 (11:44→21:00)
[2019-12-19] MEDS: VANCOMYCIN HCL 1,000 MG, VIAL MATE ADAPTER 1 EACH in D5W 250 ML IV SCH (14:04)
[2019-12-19] MEDS: SLF 3 ML SYR IV SCH ×2 (14:05→21:21)
[2019-12-19] MEDS ORDERED: ACETAMINOPHEN TAB 650MG DOSE (2X325MG) As Ordered ONE (14:40)
[2019-12-19] MEDS: ACETAMINOPHEN TAB 650MG DOSE (2X325MG) PO PRN (14:42)
--- NOTE | 2019-12-19 20:31 | ECGEPIP ---
[facility] - ED Test Date: 2019-12-18 Pat Name: GUERO MEADE Department: Room: [place] [address] Gender: Male Block Paver: neal santos : 1950 Requested By: NEFTALI Camargo Order Number: [id number] Reading MD: Chadwick Lara Measurements Intervals [place] Rate: 97 P: 38 ND: 187 QRS: -8 QRSD: 109 T: 15 QT: 347 QTc: 441 Interpretive Statements SINUS RHYTHM MODERATE INTRAVENTRICULAR CONDUCTION DELAY NSTTW ABNORMALITIES NO PRIORS FOR COMPARISON Electronically Signed on 12-19-2019 20:31:18 EDT by Chadwick Lara
[2019-12-20] VITALS (10 sets, daily range): BP systolic 116–133; BP diastolic 64–77; O2SAT 92–94
[2019-12-20] MEDS: VANCOMYCIN HCL 1,000 MG, VIAL MATE ADAPTER 1 EACH in D5W 250 ML IV SCH ×2 (02:27→14:29)
[2019-12-20] MEDS: SLF 3 ML SYR IV SCH ×3 (05:44→21:30)
[2019-12-20 06:26] LABS: BASO % 0.2 % (0.0-1.0); EOS # 0.2 10^3/uL (0.0-0.5); EOS % 2.4 % (0.0-3.0); HEMATOCRIT 40.7 % (42.0-52.0); HEMOGLOBIN 13.4 g/dl (13.5-17.5); LYMPH # 0.6 10^3/uL (1.5-5.0); MEAN CORPUSCULAR HEMOGLOBIN 29.3 pg (27.0-33.0); MEAN CORPUSCULAR HGB CONC 32.9 g/dl (32.0-36.5); MEAN CORPUSCULAR VOLUME 89.1 fl (80.0-96.0); MONO # 0.7 10^3/uL (0.0-0.8); MONO % 6.9 % (0.0-5.0); NEUTROPHILS % 84.1 % (36.0-66.0); PLATELET COUNT, AUTOMATED 227 10^3/uL (150-450); RED BLOOD COUNT 4.57 10^6/uL (4.30-6.10); WHITE BLOOD COUNT 9.5 10^3/uL (4.0-10.0)
[2019-12-20] MEDS: ADVAIR HFA 45/21MCG INHALER INH SCH ×2 (07:16→20:34)
[2019-12-20 07:48] LABS: BLOOD UREA NITROGEN 17 MG/DL (7-18); CARBON DIOXIDE LEVEL 23 MEQ/L (21-32); CHLORIDE LEVEL 100 MEQ/L (98-107); CREATININE FOR GFR 1.01 MG/DL (0.70-1.30); GLOMERULAR FILTRATION RATE > 60.0 (>49); GLUCOSE, FASTING 153 MG/DL (70-100); POTASSIUM SERUM 4.1 MEQ/L (3.5-5.1); SODIUM LEVEL 133 MEQ/L (136-145)
[2019-12-20] MEDS: HumaLOG INSULIN (NovoLOG) PER UNIT SC SCH ×4 (09:06→21:00)
[2019-12-20] MEDS: LACTOBACILLUS ACIDOPHILUS CAP (BACID) PO SCH ×2 (09:07→18:00)
[2019-12-20] MEDS: ATORVASTATIN 20 MG TAB PO SCH (09:07)
[2019-12-20] MEDS: ENOXAPARIN 40MG/0.4ML SYRINGE (J1650 PER 10MG) SC SCH (09:07)
[2019-12-20] MEDS: allopurinoL 300 MG TAB PO SCH (09:07)
[2019-12-20] MEDS: GABAPENTIN 300 MG CAP PO SCH ×3 (09:07→21:30)
[2019-12-20] MEDS: FLUoxetine 20 MG CAP PO SCH (09:08)
[2019-12-20] MEDS: cefTRIAXone SOD 2 GM in D5W MINI-BAG PLUS 50 ML IV SCH (09:08)
[2019-12-20] MEDS: buPROPion **XL** TABLET 150MG (WELLBUTRIN XL) PO SCH (09:28)
[2019-12-20] MEDS: ONDANSETRON 4MG/2ML VIAL (J2405 PER 1MG) IV PRN (09:28)
[2019-12-20] MEDS: FUROSEMIDE 40MG/4ML VIAL (J1940) IV SCH ×2 (10:45→17:00)
--- NOTE | 2019-12-20 11:04 | CR ---
DATE OF VISIT: 12/20/2019 CHIEF COMPLAINT: 69-year-old male seen for evaluation of his left foot. The patient was seen in the office two days ago with an infection with minimal discharge and erythema, got worse and had difficulty breathing with shortness of breath over the last few days and was admitted in the hospital with a temperature of 101. PAST MEDICAL HISTORY: 1. Type 2 diabetes with neuropathy. 2. History of prostate cancer. 3. History of kidney stones. 4. Hyperlipidemia. 5. Hypertension. 6. Asthma. 7. Rosacea. 8. Anxiety disorder. 9. Obstructive sleep apnea. 10. Obesity. PAST SURGICAL HISTORY: 1. Tonsillectomy. 2. Adenoidectomy. 3. Vasectomy. 4. Possible metal in his middle ear bone. 5. Prostate biopsy with radiation. 6. Hernia repair. 7. Cyst removed from face. PHYSICAL EXAMINATION: Reveals an ulceration present on the plantar aspect of the foot inferior to the fourth metatarsal. This does not penetrate the bone. There is worsening of the redness now extending over the dorsal aspect of his foot in the plantar aspect of the foot with abscess formation noted extending on the proximal and medial aspects of the foot consistent with a central space abscess. X-rays were reviewed. The patient does have a history of a fractured fifth toe/fifth metatarsal 50 years ago. No definitive signs of osteomyelitis. ASSESSMENT: Central space abscess plantar aspect left foot. PLAN: Informed consent was obtained. The patient states he had half an Gabones[place] muffin at 7 o'clock. His tray was removed at 8:30. We will schedule a surgery tonight. He is presently nothing by mouth (n.p.o.) with incision and drainage of central space with packing with iodoform gauze and irrigation with dilute vancomycin solution with low pressure pulse lavage system. His questions were answered.
[2019-12-20] MEDS ORDERED: ROPIvacaine 0.5% 30ML INJECTION (J2795 PER 1MG) As Ordered ONE (15:49)
[2019-12-20] MEDS ORDERED: dexameTHASONE 4 MG/ML 1ML VIAL (J1100 PER 1MG) As Ordered ONE ×2 (15:49→15:53)
[2019-12-20] MEDS ORDERED: LIDOCAINE 2% MDV 20ML VIAL As Ordered ONE (15:49)
[2019-12-20] MEDS ORDERED: VANCOMYCIN 1000MG/20ML VIAL As Ordered ONE (15:50)
[2019-12-20] MEDS ORDERED: MIDAZOLAM INJ 2MG/2ML VIAL (J2250 PER 1MG) As Ordered ONE (15:52)
[2019-12-20] MEDS ORDERED: fentaNYL 100 MCG/2 ML INJECTION (J3010) As Ordered ONE (15:53)
[2019-12-20] MEDS ORDERED: propofoL 200 MG/20 ML VIAL As Ordered ONE ×3 (15:53→16:52)
[2019-12-20] MEDS ORDERED: ONDANSETRON 4MG/2ML VIAL (J2405 PER 1MG) As Ordered ONE (15:53)
[2019-12-20] MEDS ORDERED: LIDOCAINE 2% 100MG/5ML SDV (FOR ANES.) As Ordered ONE (15:53)
[2019-12-20] MEDS ORDERED: PHENYLephrine HCL 500 MCG/5 ML (100MCG/ML) SYRINGE (J2370) As Ordered ONE (17:08)
[2019-12-20] MEDS ORDERED: fentaNYL 100 MCG/2 ML INJECTION (J3010) IV PRN (17:45)
[2019-12-20] MEDS ORDERED: ONDANSETRON 4MG/2ML VIAL (J2405 PER 1MG) IV PRN (17:45)
--- NOTE | 2019-12-20 18:16 | RO ---
DATE OF PROCEDURE: 12/20/2019 PREPROCEDURE DIAGNOSIS: Central space infection plantar aspect left foot. POSTPROCEDURE DIAGNOSIS: Central space infection plantar aspect left foot. PROCEDURE: Incision and drainage of superficial and deep central space, left foot. SURGEON: Carloz Hess DPM REAL ESTATE INSPECTOR: None ANESTHESIA: Local MAC ESTIMATED BLOOD LOSS: Less than 100 mL. HEMOSTASIS: None. IRRIGATION: Dilution vancomycin solution 3000 liters, low pressure pulse lavage system. DRAINS UTILIZED: 1/2-inch Iodoform gauze. DESCRIPTION OF PROCEDURE: On 12/20/2019, this 69-year-old male was taken from his hospital room to the operating room and placed on the operating table in the supine position. Following the induction of IV sedation and local and regional anesthesia, the left lower extremity was prepped and draped in the usual aseptic manner. Attention was directed to the patient's left foot. There was noted to be an ulceration. Utilizing a groove director, the ulceration was seen to tunnel along the plantar fascia and extend proximally 8 cm and approximately 1 cm in a distal direction making a 10 cm incision when the ulcer size was included. This 10 cm incision was then opened. All bleeders as encountered were electrocoagulated. Yellow purulent matter was expressed and sent for aerobic and anaerobic culture. The plantar fascia was then exposed and transected into the deep plantar space giving access. The ulceration did not extend to bone. Utilizing 3 liters of dilute vancomycin solution, with a low pressure pulse lavage system, the wound was entirely irrigated. The wound was then packed with 1/2-inch Iodoform gauze and a dry sterile dressing was applied. The patient will continue on his present antibiotics. They can be fine-tuned according to his culture and sensitivity. Previous culture revealed growth of methicillin-resistant Staphylococcus (staph) aureus. [facility]
--- NOTE | 2019-12-20 18:31 | IPNPDOC ---
Date Seen The patient was seen on 12/20/19. Progress Note SUBJECTIVE: 72-year-old male with past medical history of diabetes mellitus, hypertension, hyperlipidemia, prostate cancer is admitted for dyspnea and left foot infection. No acute events overnight, remains unchanged in the morning, continues to have mild dyspnea and left foot pain, no other complaints. He denies any shortness of breath, chest pain, nausea, vomiting or abdominal pain. 10 point review of system is negative except for above PHYSICAL EXAMINATION: VITAL SIGNS: Please see below. GENERAL: Obese HEENT: Normocephalic, atraumatic, moist mucous membranes NECK: Supple CARDIOVASCULAR EXAMINATION: S1, S2, no murmurs RESPIRATORY EXAMINATION: Scattered rhonchi, no wheezing ABDOMINAL EXAMINATION: Soft, nontender, nondistended, positive bowel sounds EXTREMITIES: Bilateral lower extremity pitting edema SKIN: Left lower extremity remains swollen and erythematous, wound on plantar hogue rface worsening with possible abscess formation. NEUROLOGICAL EXAMINATION: Alert and oriented 3, no focal deficits PSYCHIATRIC EXAMINATION: Calm and cooperative LABORATORY DATA, IMAGING STUDIES, MICROBIOLOGY: Please see below. ASSESSMENT AND PLAN: 69-year-old male with multiple medical comorbidities is admitted for left foot infection. PROBLEMS: 1. Left foot infected ulcer: Now with abscess formation, plan for I&D by podiatry, continue empiric antibiotics, will tailor antibiotics based on i ntraoperative cultures. 2. Congestive heart failure: Reports history of congestive heart failure, no previous echo in the system, will diurese with Lasix 40 mg IV twice a day, monitor I's and O's, fluid resection of 1200 mL per day, weigh daily. 3. Diabetes mellitus: Sliding scale insulin coverage with meals and at bedtime. 4. COPD: Continue Advair and supplemental oxygen as needed to maintain O2 sats between 80-92%. 5. Hyperlipidemia: Continue atorvastatin DVT prophylaxis: Lovenox. GI prophylaxis: Not needed VS, I&O, 24H, Fishbone Vital Signs/I&O Vital Signs Date Time Temp Pulse Resp B/P (MAP) Pulse Ox O2 Delivery O2 Flow Rate FiO2 12/20/19 18:19 98.7 82 18 116/58 (77) 93 Nasal Cannula 3 I&O- Last 24 Hours up to 6 AM 12/20/19 06:00 Intake Total 1575 ml Output Total 1170 ml Balance 405 ml Laboratory Data 24H LABS Laboratory Tests 2 12/19/19 20:51: Bedside Glucose (Misc Panel) 145H 12/20/19 05:36: Immature Granulocyte % (Auto) 0.4, Neutrophils (%) (Auto) 84.1H, Lymphocytes (%) (Auto) 6.0L, Monocytes (%) (Auto) 6.9H, Eosinophils (%) (Auto) 2.4, Basophils (%) (Auto) 0.2, Neutrophils # (Auto) 8.0, Lymphocytes # (Auto) 0.6L, Monocytes # (Auto) 0.7, Eosinophils # (Auto) 0.2, Basophils # (Auto) 0.0, Nucleated Red Blood Cells % (auto) 0.0, Anion Gap 10, Glomerular Filtration Rate > 60.0, Calcium Level 9.0 12/20/19 11:39: Bedside Glucose (Misc Panel) 184H 12/20/19 13:02: Vancomycin Level Trough 10.2 CBC/BMP Laboratory Tests 12/20/19 05:36 Microbiology Microbiology 12/20/19 Gram Stain, Received Pending 12/20/19 Abscess Culture, Received Pending 12/20/19 Anaerobic Culture, Received Pending 12/19/19 Gastrointestinal Tract Panel (PCR) - Final, Complete 12/19/19 Coronavirus COVID-19 PCR ([facility]) - Final, Complete 12/18/19 Respiratory Panel (PCR) - Final, Complete 12/18/19 Blood Culture - Preliminary, Resulted No growth after 24 hours . All specim... 12/18/19 Blood Culture - Preliminary, Resulted No growth after 24 hours . All specim... YAMILETH PENA MD Dec 20, 2019 18:31
[2019-12-21] VITALS (7 sets, daily range): BP systolic 123–133; BP diastolic 7–76; O2SAT 90
[2019-12-21] MEDS: VANCOMYCIN HCL 1,000 MG, VIAL MATE ADAPTER 1 EACH in D5W 250 ML IV SCH ×3 (01:55→21:46)
[2019-12-21 05:48] LABS: HEMATOCRIT 36.1 % (42.0-52.0); HEMOGLOBIN 11.8 g/dl (13.5-17.5); LYMPH # 0.4 10^3/uL (1.5-5.0); MEAN CORPUSCULAR HEMOGLOBIN 28.6 pg (27.0-33.0); MEAN CORPUSCULAR HGB CONC 32.7 g/dl (32.0-36.5); MEAN CORPUSCULAR VOLUME 87.6 fl (80.0-96.0); MONO # 0.3 10^3/uL (0.0-0.8); MONO % 4.3 % (0.0-5.0); NEUTROPHILS # 6.3 10^3/uL (1.5-8.5); NEUTROPHILS % 90.3 % (36.0-66.0); PLATELET COUNT, AUTOMATED 210 10^3/uL (150-450); RED BLOOD COUNT 4.12 10^6/uL (4.30-6.10)
[2019-12-21] MEDS: SLF 3 ML SYR IV SCH ×3 (06:02→21:46)
[2019-12-21 06:16] LABS: BLOOD UREA NITROGEN 18 MG/DL (7-18); CALCIUM LEVEL 8.8 MG/DL (8.8-10.2); CARBON DIOXIDE LEVEL 28 MEQ/L (21-32); CHLORIDE LEVEL 99 MEQ/L (98-107); CREATININE FOR GFR 0.87 MG/DL (0.70-1.30); GLOMERULAR FILTRATION RATE > 60.0 (>49); GLUCOSE, FASTING 266 MG/DL (70-100); POTASSIUM SERUM 4.4 MEQ/L (3.5-5.1); SODIUM LEVEL 132 MEQ/L (136-145)
[2019-12-21] MEDS: HumaLOG INSULIN (NovoLOG) PER UNIT SC SCH ×4 (09:24→20:55)
[2019-12-21] MEDS: ENOXAPARIN 40MG/0.4ML SYRINGE (J1650 PER 10MG) SC SCH (09:25)
[2019-12-21] MEDS: FUROSEMIDE 40MG/4ML VIAL (J1940) IV SCH ×2 (09:26→16:50)
[2019-12-21] MEDS: GABAPENTIN 300 MG CAP PO SCH ×3 (09:27→20:54)
[2019-12-21] MEDS: FLUoxetine 20 MG CAP PO SCH (09:27)
[2019-12-21] MEDS: ATORVASTATIN 20 MG TAB PO SCH (09:27)
[2019-12-21] MEDS: allopurinoL 300 MG TAB PO SCH (09:27)
[2019-12-21] MEDS: LACTOBACILLUS ACIDOPHILUS CAP (BACID) PO SCH ×2 (09:27→18:31)
[2019-12-21] MEDS: buPROPion **XL** TABLET 150MG (WELLBUTRIN XL) PO SCH (09:27)
[2019-12-21] MEDS: ADVAIR HFA 45/21MCG INHALER INH SCH ×2 (09:37→19:57)
[2019-12-21] MEDS: ACETAMINOPHEN TAB 650MG DOSE (2X325MG) PO PRN ×2 (12:51→18:31)
--- NOTE | 2019-12-21 14:04 | PHACANCOPD ---
PHARMACY VANCOMYCIN DOSING Pt Demographics Demographics Patient Age:69 , Weight:123.800 , Gender: male Adjusted Body Weight Date: 12/19/19, Adjusted Body Weight: Kg Events Past 24 Hours Events Past 24 Hours: NO: Dialysis, Diuretic Therapy, Change in CrCl, Fever, Elevation in WBC, Pending Diagnostics, Pending Procedures, Other Vancomycin Vancomycin indication: CELLULITIS LEFT FOOT Vancomycin Target Ranges: 10-20 mcg/ml Vancomycin Load Y/N: Yes Load Dose Date Time Vancomycin Load Dose: 2 GM Date: 12/18 Time: 03&04:00 Vancomycin Dose Date: 12/21/19. Current Vancomycin Dose: [1G IV Q8H] Date: 12/19/19. Current Vancomycin Dose: [1 GM Q12H] Intermittent Dosing?: No Labs Labs Item Value Date Time White Blood Count 12.1 10^3/uL H 12/19/19 0455 White Blood Count 10.8 10^3/uL H 12/19/19 0809 White Blood Count 9.5 10^3/uL 12/20/19 0536 White Blood Count 7.0 10^3/uL 12/21/19 0531 Creatinine 1.30 MG/DL 12/19/19 0455 Creatinine 1.01 MG/DL 12/20/19 0536 Creatinine 0.87 MG/DL 12/21/19 0531 Vancomycin Level Trough 10.2 UG/ML 12/20/19 1302 Vancomycin Level Trough 9.2 UG/ML L 12/21/19 1246 Micro Microbiology 12/20/19 Gram Stain - Final, Resulted 12/20/19 Abscess Culture - Preliminary, Resulted Staphylococcus Aureus 12/20/19 Anaerobic Culture, Resulted Pending 12/19/19 Gastrointestinal Tract Panel (PCR) - Final, Complete 12/19/19 Coronavirus COVID-19 PCR ([facility]) - Final, Complete 12/18/19 Respiratory Panel (PCR) - Final, Complete 12/18/19 Blood Culture - Preliminary, Resulted No Growth after 48 hours. All Specime... 12/18/19 Blood Culture - Preliminary, Resulted No Growth after 48 hours. All Specime... Creatinine Clearance Date:12/19/19. Creatinine Clearance: [61].CALCULATED Assessment and Plan Maintaining Current Dose?: No Reason for dose change: Trough too low Pharmacist Note Pharmacist Note Date: 12/21/19. Pharmacist note: PT trough came back at 9.2mcg/ml @12:46 today. Dosing will be changed to 1g IV every 8 hours starting 12/21/19 @ 14:00. A trough is scheduled for 12/21 @13:00. We will continue to monitor and adjust the dose as needed. Date: 12/19/19. Pharmacist note:69YOM,71",120.45KG(ABW=93.4KG) SCR=1.55,CALCULATED CRCL=61,ADMITTED AFTER EXPERIENCING FEVER& SOB X 2 DAYS, ALSO PAIN/SWELLING IN LEFT FOOT.ALLERGIES:PEN,ERYTHROMYCIN.TX: CEFTRIAXONE 2 GM Q24H AND PHARMACY DOSED VANCOMYCIN.vANCOMYCIN GM LOAD ADMINISTERED 12/18@03:330/04:30, THEN WILL BEGIN 1 GRAM IV [id number] 12/18@14:00. fIRST TROUGH IS SCHEDULED FOR 12/19@1300(PRIOR TO THE 4TH DOSE)-WILL CONTINUE FOLLOW [facility] Dec 21, 2019 14:04
--- NOTE | 2019-12-21 17:45 | IPNPDOC ---
Date Seen The patient was seen on 12/21/19. Progress Note SUBJECTIVE: 72-year-old male with past medical history of diabetes mellitus, hypertension, hyperlipidemia, prostate cancer is admitted for dyspnea and left foot infection. He underwent I&D yesterday by podiatry, seen in the morning, comfortable, foot pain is well controlled, no other complaints, no acute events overnight. 10 point review of system is negative except for above PHYSICAL EXAMINATION: VITAL SIGNS: Please see below. GENERAL: Obese HEENT: Normocephalic, atraumatic, moist mucous membranes NECK: Supple CARDIOVASCULAR EXAMINATION: S1, S2, no murmurs RESPIRATORY EXAMINATION: Scattered rhonchi, no wheezing ABDOMINAL EXAMINATION: Soft, nontender, nondistended, positive bowel sounds EXTREMITIES: Bilateral lower extremity pitting edema SKIN: Left lower extremity swollen and erythematous, left foot with dressing in place. NEUROLOGICAL EXAMINATION: Alert and oriented 3, no focal deficits PSYCHIATRIC EXAMINATION: Calm and cooperative LABORATORY DATA, IMAGING STUDIES, MICROBIOLOGY: Please see below. ASSESSMENT AND PLAN: 69-year-old male with multiple medical comorbidities is admitted for left foot infection. PROBLEMS: 1. Left foot infected ulcer with abscess: Status post I&D by podiatry, cultures grew MRSA, continue vancomycin. 2. Congestive heart failure: Continue Lasix 40 mg IV twice a day, monitor I's and O's, fluid resection of 1200 mL per day, weigh daily. 3. Diabetes mellitus: Sliding scale insulin coverage with meals and at bedtime. 4. COPD: Continue Advair and supplemental oxygen as needed to maintain O2 sats between 80-92%. 5. Hyperlipidemia: Continue atorvastatin DVT prophylaxis: Lovenox. GI prophylaxis: Not needed VS, I&O, 24H, Obed Vital Signs/I&O Vital Signs Date Time Temp Pulse Resp B/P (MAP) Pulse Ox O2 Delivery O2 Flow Rate FiO2 12/21/19 16:00 98.1 78 21 126/68 (87) 93 Nasal Cannula 2.0 I&O- Last 24 Hours up to 6 AM 12/21/19 05:59 Intake Total 2430 ml Output Total 1725 ml Balance 705 ml Laboratory Data 24H LABS Laboratory Tests 2 12/20/19 20:37: Bedside Glucose (Misc Panel) 236H 12/21/19 05:31: Immature Granulocyte % (Auto) 0.4, Neutrophils (%) (Auto) 90.3H, Lymphocytes (%) (Auto) 5.0L, Monocytes (%) (Auto) 4.3, Eosinophils (%) (Auto) 0.0, Basophils (%) (Auto) 0.0, Neutrophils # (Auto) 6.3, Lymphocytes # (Auto) 0.4L, Monocytes # (Auto) 0.3, Eosinophils # (Auto) 0.0, Basophils # (Auto) 0.0, Nucleated Red Blood Cells % (auto) 0.0, Anion Gap 5L, Glomerular Filtration Rate > 60.0, Calcium Level 8.8 12/21/19 11:48: Bedside Glucose (Misc Panel) 315H 12/21/19 12:46: Vancomycin Level Trough 9.2L 12/21/19 16:29: Bedside Glucose (Misc Panel) 242H CBC/BMP Laboratory Tests 12/21/19 05:31 Microbiology Microbiology 12/20/19 Gram Stain - Final, Resulted 12/20/19 Abscess Culture - Preliminary, Resulted Staphylococcus Aureus 12/20/19 Anaerobic Culture, Resulted Pending 12/19/19 Gastrointestinal Tract Panel (PCR) - Final, Complete 12/19/19 Coronavirus COVID-19 PCR ([facility]) - Final, Complete 12/18/19 Respiratory Panel (PCR) - Final, Complete 12/18/19 Blood Culture - Preliminary, Resulted No Growth after 48 hours. All Specime... 12/18/19 Blood Culture - Preliminary, Resulted No Growth after 48 hours. All Specime... YAMILETH PENA MD Dec 21, 2019 17:45
[2019-12-21] MEDS ORDERED: KETOROLAC 30 MG/ML 1ML VIAL (J1885 PER 15MG) IV ONE (20:30)
[2019-12-22] MEDS: ACETAMINOPHEN TAB 650MG DOSE (2X325MG) PO PRN ×4 (02:55→23:42)
[2019-12-22] MEDS: VANCOMYCIN HCL 1,000 MG, VIAL MATE ADAPTER 1 EACH in D5W 250 ML IV SCH ×3 (05:50→22:11)
[2019-12-22] MEDS: SLF 3 ML SYR IV SCH ×3 (05:50→22:11)
[2019-12-22 05:54] LABS: BASO % 0.5 % (0.0-1.0); EOS # 0.2 10^3/uL (0.0-0.5); EOS % 3.7 % (0.0-3.0); HEMATOCRIT 36.2 % (42.0-52.0); LYMPH # 0.8 10^3/uL (1.5-5.0); MEAN CORPUSCULAR HEMOGLOBIN 29.2 pg (27.0-33.0); MEAN CORPUSCULAR HGB CONC 33.1 g/dl (32.0-36.5); MEAN CORPUSCULAR VOLUME 88.1 fl (80.0-96.0); MONO # 0.4 10^3/uL (0.0-0.8); NEUTROPHILS # 4.8 10^3/uL (1.5-8.5); PLATELET COUNT, AUTOMATED 244 10^3/uL (150-450); RED BLOOD COUNT 4.11 10^6/uL (4.30-6.10); WHITE BLOOD COUNT 6.3 10^3/uL (4.0-10.0)
[2019-12-22 06:00] VITALS: BP 125/72
[2019-12-22 06:24] LABS: BLOOD UREA NITROGEN 27 MG/DL (7-18); CALCIUM LEVEL 8.5 MG/DL (8.8-10.2); CARBON DIOXIDE LEVEL 26 MEQ/L (21-32); CHLORIDE LEVEL 100 MEQ/L (98-107); GLOMERULAR FILTRATION RATE > 60.0 (>49); GLUCOSE, FASTING 255 MG/DL (70-100); POTASSIUM SERUM 3.6 MEQ/L (3.5-5.1); SODIUM LEVEL 135 MEQ/L (136-145)
[2019-12-22] MEDS: ADVAIR HFA 45/21MCG INHALER INH SCH ×2 (07:18→20:28)
[2019-12-22] MEDS: HumaLOG INSULIN (NovoLOG) PER UNIT SC SCH ×4 (07:30→20:47)
[2019-12-22] MEDS: GABAPENTIN 300 MG CAP PO SCH ×3 (08:48→22:11)
[2019-12-22] MEDS: ATORVASTATIN 20 MG TAB PO SCH (08:49)
[2019-12-22] MEDS: buPROPion **XL** TABLET 150MG (WELLBUTRIN XL) PO SCH (08:49)
[2019-12-22] MEDS: POTASSIUM CHLORIDE 10 MEQ SR TABLET PO SCH ×2 (08:49→12:55)
[2019-12-22] MEDS: allopurinoL 300 MG TAB PO SCH (08:50)
[2019-12-22] MEDS: LACTOBACILLUS ACIDOPHILUS CAP (BACID) PO SCH ×2 (08:50→17:23)
[2019-12-22] MEDS: FLUoxetine 20 MG CAP PO SCH (08:50)
[2019-12-22] MEDS: ENOXAPARIN 40MG/0.4ML SYRINGE (J1650 PER 10MG) SC SCH (08:51)
[2019-12-22] MEDS: FUROSEMIDE 40MG/4ML VIAL (J1940) IV SCH ×2 (08:51→16:26)
--- NOTE | 2019-12-22 13:45 | PHACANCOPD ---
PHARMACY VANCOMYCIN DOSING Pt Demographics Demographics Patient Age:69 , Weight:121.500 , Gender: male Adjusted Body Weight Date: 12/19/19, Adjusted Body Weight: Kg Events Past 24 Hours Events Past 24 Hours: NO: Dialysis, Diuretic Therapy, Change in CrCl, Fever, Elevation in WBC, Pending Diagnostics, Pending Procedures, Other Vancomycin Vancomycin indication: CELLULITIS LEFT FOOT Vancomycin Target Ranges: 10-20 mcg/ml Vancomycin Load Y/N: Yes Load Dose Date Time Vancomycin Load Dose: 2 GM Date: 12/18 Time: 03&04:00 Vancomycin Dose Date: 12/21/19. Current Vancomycin Dose: [1G IV Q8H] Date: 12/19/19. Current Vancomycin Dose: [1 GM Q12H] Intermittent Dosing?: No Labs Labs Item Value Date Time White Blood Count 9.5 10^3/uL 12/20/19 0536 White Blood Count 7.0 10^3/uL 12/21/19 0531 White Blood Count 6.3 10^3/uL 12/22/19 0536 Creatinine 1.01 MG/DL 12/20/19 0536 Creatinine 0.87 MG/DL 12/21/19 0531 Creatinine 1.00 MG/DL 12/22/19 0536 Vancomycin Level Trough 10.2 UG/ML 12/20/19 1302 Vancomycin Level Trough 9.2 UG/ML L 12/21/19 1246 Vancomycin Level Trough 16.1 UG/ML 12/22/19 1305 Micro Microbiology 12/20/19 Gram Stain - Final, Complete 12/20/19 Abscess Culture - Final, Complete Staph.aureus Methicillin Resis 12/20/19 Anaerobic Culture - Final, Complete 12/19/19 Gastrointestinal Tract Panel (PCR) - Final, Complete 12/19/19 Coronavirus COVID-19 PCR ([facility]) - Final, Complete 12/18/19 Respiratory Panel (PCR) - Final, Complete 12/18/19 Blood Culture - Preliminary, Resulted No Growth after 72 hours. All specime... 12/18/19 Blood Culture - Preliminary, Resulted No Growth after 72 hours. All specime... Creatinine Clearance Date:12/19/19. Creatinine Clearance: [61].CALCULATED Assessment and Plan Maintaining Current Dose?: Yes Reason for dose change: No Dose Change Pharmacist Note Pharmacist Note Date: 12/22/19. Pharmacist note: PT trough came back at 16.1mcg/ml. Dosing will continue at 1g IV every 8 hours. We will continue to monitor and adjust the dose as needed. Date: 12/21/19. Pharmacist note: PT trough came back at 9.2mcg/ml @12:46 today. Dosing will be changed to 1g IV every 8 hours starting 12/21/19 @ 14:00. A trough is scheduled for 12/21 @13:00. We will continue to monitor and adjust the dose as needed. Date: 12/19/19. Pharmacist note:69YOM,71",120.45KG(ABW=93.4KG) SCR=1.55,CALCULATED CRCL=61,ADMITTED AFTER EXPERIENCING FEVER& SOB X 2 DAYS, ALSO PAIN/SWELLING IN LEFT FOOT.ALLERGIES:PEN,ERYTHROMYCIN.TX: CEFTRIAXONE 2 GM Q24H AND PHARMACY DOSED VANCOMYCIN.vANCOMYCIN GM LOAD ADMINISTERED 12/18@03:330/04:30, THEN WILL BEGIN 1 GRAM IV [id number] 12/18@14:00. fIRST TROUGH IS SCHEDULED FOR 12/19@1300(PRIOR TO THE 4TH DOSE)-WILL CONTINUE FOLLOW [facility] Dec 22, 2019 13:45
[2019-12-22 14:00] VITALS: BP 124/70
--- NOTE | 2019-12-22 16:17 | IPNPDOC ---
Date Seen The patient was seen on 12/22/19. Progress Note SUBJECTIVE: 72-year-old male with past medical history of diabetes mellitus, hypertension, hyperlipidemia, prostate cancer is admitted for dyspnea and left foot infection. He underwent I&D by podiatry, seen in the morning, comfortable, foot pain is well controlled, no other complaints, no acute events overnight. 10 point review of system is negative except for above PHYSICAL EXAMINATION: VITAL SIGNS: Please see below. GENERAL: Obese HEENT: Normocephalic, atraumatic, moist mucous membranes NECK: Supple CARDIOVASCULAR EXAMINATION: S1, S2, no murmurs RESPIRATORY EXAMINATION: Scattered rhonchi, no wheezing ABDOMINAL EXAMINATION: Soft, nontender, nondistended, positive bowel sounds EXTREMITIES: Bilateral lower extremity pitting edema SKIN: Left lower extremity swelling & erythema improving, left foot with surgical dressing in place. NEUROLOGICAL EXAMINATION: Alert and oriented 3, no focal deficits PSYCHIATRIC EXAMINATION: Calm and cooperative LABORATORY DATA, IMAGING STUDIES, MICROBIOLOGY: Please see below. ASSESSMENT AND PLAN: 69-year-old male with multiple medical comorbidities is admitted for left foot infection. PROBLEMS: 1. Left foot infected ulcer with abscess: Status post I&D by podiatry, cultures grew MRSA, continue vancomycin, further debridement as per Podiatry. 2. Congestive heart failure: clinically improving, continue Lasix 40 mg IV twice a day, monitor I's and O's, fluid resection of 1200 mL per day, weigh daily. Likely transition to oral diuretics tomorrow. 3. Diabetes mellitus: Sliding scale insulin coverage with meals and at bedtime. 4. COPD: Continue Advair and supplemental oxygen as needed to maintain O2 sats between 80-92%. 5. Hyperlipidemia: Continue atorvastatin DVT prophylaxis: Lovenox. GI prophylaxis: Not needed VS, I&O, 24H, Fishbone Vital Signs/I&O Vital Signs Date Time Temp Pulse Resp B/P (MAP) Pulse Ox O2 Delivery O2 Flow Rate FiO2 12/22/19 14:00 98.4 66 18 124/70 (88) 94 NIPPV (BIPAP/CPAP) 12/22/19 09:00 3.0 I&O- Last 24 Hours up to 6 AM 12/22/19 05:59 Intake Total 1870 ml Output Total 2500 ml Balance -630 ml Laboratory Data 24H LABS Laboratory Tests 2 12/21/19 16:29: Bedside Glucose (Misc Panel) 242H 12/21/19 20:26: Bedside Glucose (Misc Panel) 253H 12/22/19 05:36: Immature Granulocyte % (Auto) 0.8, Neutrophils (%) (Auto) 76.0H, Lymphocytes (%) (Auto) 12.0L, Monocytes (%) (Auto) 7.0H, Eosinophils (%) (Auto) 3.7H, Basophils (%) (Auto) 0.5, Neutrophils # (Auto) 4.8, Lymphocytes # (Auto) 0.8L, Monocytes # (Auto) 0.4, Eosinophils # (Auto) 0.2, Basophils # (Auto) 0.0, Nucleated Red Blood Cells % (auto) 0.0, Anion Gap 9, Glomerular Filtration Rate > 60.0, Calcium Level 8.5L 12/22/19 11:20: Bedside Glucose (Misc Panel) 172H 12/22/19 13:05: Vancomycin Level Trough 16.1 CBC/BMP Laboratory Tests 12/22/19 05:36 Microbiology Microbiology 12/20/19 Gram Stain - Final, Complete 12/20/19 Abscess Culture - Final, Complete Staph.aureus Methicillin Resis 12/20/19 Anaerobic Culture - Final, Complete 12/19/19 Gastrointestinal Tract Panel (PCR) - Final, Complete 12/19/19 Coronavirus COVID-19 PCR ([facility]) - Final, Complete 12/18/19 Respiratory Panel (PCR) - Final, Complete 12/18/19 Blood Culture - Preliminary, Resulted No Growth after 72 hours. All specime... 12/18/19 Blood Culture - Preliminary, Resulted No Growth after 72 hours. All specime... YAMILETH PENA MD Dec 22, 2019 16:17
[2019-12-22 22:00] VITALS: BP 118/69
[2019-12-23 04:06] VITALS: O2SAT 94
[2019-12-23] MEDS: VANCOMYCIN HCL 1,000 MG, VIAL MATE ADAPTER 1 EACH in D5W 250 ML IV SCH (05:58)
[2019-12-23] MEDS: SLF 3 ML SYR IV SCH ×3 (05:58→23:17)
[2019-12-23 06:00] VITALS: BP 145/77
[2019-12-23 06:12] LABS: BASO % 0.6 % (0.0-1.0); EOS # 0.3 10^3/uL (0.0-0.5); EOS % 4.8 % (0.0-3.0); HEMATOCRIT 37.4 % (42.0-52.0); LYMPH # 0.8 10^3/uL (1.5-5.0); LYMPH % 11.1 % (24.0-44.0); MEAN CORPUSCULAR HEMOGLOBIN 28.5 pg (27.0-33.0); MEAN CORPUSCULAR HGB CONC 32.1 g/dl (32.0-36.5); MEAN CORPUSCULAR VOLUME 88.8 fl (80.0-96.0); MONO # 0.6 10^3/uL (0.0-0.8); MONO % 8.2 % (0.0-5.0); NEUTROPHILS % 73.7 % (36.0-66.0); PLATELET COUNT, AUTOMATED 284 10^3/uL (150-450); RED BLOOD COUNT 4.21 10^6/uL (4.30-6.10); WHITE BLOOD COUNT 6.8 10^3/uL (4.0-10.0)
[2019-12-23 06:33] LABS: BLOOD UREA NITROGEN 24 MG/DL (7-18); CALCIUM LEVEL 8.8 MG/DL (8.8-10.2); CARBON DIOXIDE LEVEL 27 MEQ/L (21-32); CHLORIDE LEVEL 101 MEQ/L (98-107); CREATININE FOR GFR 0.79 MG/DL (0.70-1.30); GLOMERULAR FILTRATION RATE > 60.0 (>49); GLUCOSE, FASTING 188 MG/DL (70-100); POTASSIUM SERUM 4.2 MEQ/L (3.5-5.1); SODIUM LEVEL 135 MEQ/L (136-145)
[2019-12-23] MEDS: ADVAIR HFA 45/21MCG INHALER INH SCH ×2 (07:25→20:35)
[2019-12-23 08:00] VITALS: O2SAT 92
[2019-12-23 08:49] LABS: C REACTIVE PROTEIN QUANTITATIV 7.22 MG/DL (0.00-0.30)
[2019-12-23] MEDS: buPROPion **XL** TABLET 150MG (WELLBUTRIN XL) PO SCH (09:25)
[2019-12-23] MEDS: allopurinoL 300 MG TAB PO SCH (09:25)
[2019-12-23] MEDS: FLUoxetine 20 MG CAP PO SCH (09:25)
[2019-12-23] MEDS: LACTOBACILLUS ACIDOPHILUS CAP (BACID) PO SCH ×2 (09:25→16:58)
[2019-12-23] MEDS: HumaLOG INSULIN (NovoLOG) PER UNIT SC SCH ×4 (09:25→20:37)
[2019-12-23] MEDS: GABAPENTIN 300 MG CAP PO SCH ×3 (09:25→20:37)
[2019-12-23] MEDS: ATORVASTATIN 20 MG TAB PO SCH (09:26)
[2019-12-23] MEDS: FUROSEMIDE 40MG/4ML VIAL (J1940) IV SCH (09:26)
[2019-12-23] MEDS: ENOXAPARIN 40MG/0.4ML SYRINGE (J1650 PER 10MG) SC SCH (09:27)
[2019-12-23] MEDS: ACETAMINOPHEN TAB 650MG DOSE (2X325MG) PO PRN ×2 (09:53→18:43)
--- NOTE | 2019-12-23 10:07 | REP ---
REASON FOR EXAM: Followup. COMPARISON: 12/19/2019 There is no significant change from the prior exam. There are postoperative changes, particularly 3rd and 4th metatarsals. There is diffuse soft tissue swelling about the mid and particularly fore-foot regions, which has decreased. Plantar and retrocalcaneal heel spurs status quo. Heel valgus deformity status quo. No new abnormalities are noted. IMPRESSION: Chronic changes as described above. Electronically Signed by Semaj Rodriguez DO 12/23/2019 10:15 A
[2019-12-23] MEDS: SILVER SULFADIAZINE 1% CR 50 GM JAR TOP SCH ×2 (11:49→20:38)
[2019-12-23 14:00] VITALS: BP 130/70
[2019-12-23] MEDS ORDERED: VANCOMYCIN HCL 1,000 MG, VIAL MATE ADAPTER 1 EACH in D5W 250 ML IV SCH (15:00)
--- NOTE | 2019-12-23 17:56 | IPNPDOC ---
Text Note Date of Service The patient was seen on 12/23/19. NOTE UBJECTIVE: 72-year-old male with past medical history of diabetes mellitus, h ypertension, hyperlipidemia, prostate cancer is admitted for dyspnea and left foot infection. He underwent I&D by podiatry on 12/19. He states he is doing well and his LE swelling has continued to improve. Denies any fevers, chills, chest pain, difficulty breathing. Foot pain continues to be well controlled, no acute events overnight. PHYSICAL EXAMINATION: VITAL SIGNS: Please see below. GENERAL: Obese HEENT: Normocephalic, atraumatic, moist mucous membranes NECK: Supple CARDIOVASCULAR EXAMINATION: RRR, normal S1 and S2, no murmurs RESPIRATORY EXAMINATION: CTAB with diminished breath sounds, no crackles, rhonchi, or wheezes, ABDOMINAL EXAMINATION: Soft, nontender, nondistended, positive bowel sounds EXTREMITIES: Bilateral lower extremity pitting edema SKIN: Left lower extremity swelling & erythema improving, left foot with surgical dressing in place. NEUROLOGICAL EXAMINATION: Alert and oriented 3, no focal deficits PSYCHIATRIC EXAMINATION: Calm and cooperative LABORATORY DATA, IMAGING STUDIES, MICROBIOLOGY: Please see below. ASSESSMENT AND PLAN: 69-year-old male with multiple medical comorbidities is admitted for left foot infection. PROBLEMS: 1. Infected Left foot ulcer with abscess: Status post I&D by podiatry, cultures grew MRSA with sensitivity to Bactrim, DC Vancomycin, further debridement as per Podiatry. Awaiting podiatry recommendations for disposition status, may be able to be discharged tomorrow. 2. Congestive heart failure: clinically improving, transitioning back to oral diuretics daily, monitor I's and O's, fluid resection of 1200 mL per day, weigh daily. 3. Diabetes mellitus: Sliding scale insulin coverage with meals and at bedtime. 4. COPD: Continue Advair and supplemental oxygen as needed to maintain O2 sats between 80-92%. 5. Hyperlipidemia: Continue atorvastatin DVT prophylaxis: Lovenox. disposition: Possibly tomorrow based on podiatry recommendations. VS,Fishbone, I+O VS, Fishbone, I+O Laboratory Tests 12/23/19 05:31 Vital Signs Date Time Temp Pulse Resp B/P (MAP) Pulse Ox O2 Delivery O2 Flow Rate FiO2 12/23/19 14:00 98.6 99 18 130/70 (90) 89 Nasal Cannula 2.0 I&O- Last 24 Hours up to 6 AM 12/23/19 05:59 Intake Total 1940 ml Output Total 1825 ml Balance 115 ml GME ATTESTATION GME ATTESTATION My faculty preceptor for this patient encounter was physically present during the encounter and was fully available. All aspects of the patient interview, examination, medical decision making process, and medical care plan development were reviewed and approved by the faculty preceptor. The faculty preceptor is aware and concurs with the plan as stated in the body of this note and will attest to such by his/her cosignature. TRISTAN KENNEDY DO Dec 23, 2019 17:56
[2019-12-23] MEDS: BACTRIM 160MG/800MG DS TAB PO SCH (20:36)
[2019-12-23 22:00] VITALS: BP 124/69
[2019-12-24] MEDS: ACETAMINOPHEN TAB 650MG DOSE (2X325MG) PO PRN (01:47)
[2019-12-24 05:32] VITALS: O2SAT 95
[2019-12-24 06:00] VITALS: BP 131/71
[2019-12-24] MEDS: SLF 3 ML SYR IV SCH (06:03)
[2019-12-24 06:50] LABS: BASO % 0.4 % (0.0-1.0); EOS # 0.3 10^3/uL (0.0-0.5); EOS % 4.3 % (0.0-3.0); HEMATOCRIT 38.2 % (42.0-52.0); HEMOGLOBIN 12.3 g/dl (13.5-17.5); LYMPH # 0.8 10^3/uL (1.5-5.0); MEAN CORPUSCULAR HEMOGLOBIN 28.5 pg (27.0-33.0); MEAN CORPUSCULAR HGB CONC 32.2 g/dl (32.0-36.5); MEAN CORPUSCULAR VOLUME 88.4 fl (80.0-96.0); MONO # 0.5 10^3/uL (0.0-0.8); MONO % 7.8 % (0.0-5.0); NEUTROPHILS # 4.9 10^3/uL (1.5-8.5); NEUTROPHILS % 73.4 % (36.0-66.0); PLATELET COUNT, AUTOMATED 295 10^3/uL (150-450); RED BLOOD COUNT 4.32 10^6/uL (4.30-6.10); WHITE BLOOD COUNT 6.7 10^3/uL (4.0-10.0)
[2019-12-24 07:16] LABS: BLOOD UREA NITROGEN 21 MG/DL (7-18); C REACTIVE PROTEIN QUANTITATIV 4.75 MG/DL (0.00-0.30); CALCIUM LEVEL 8.6 MG/DL (8.8-10.2); CARBON DIOXIDE LEVEL 27 MEQ/L (21-32); CHLORIDE LEVEL 103 MEQ/L (98-107); CREATININE FOR GFR 0.85 MG/DL (0.70-1.30); GLOMERULAR FILTRATION RATE > 60.0 (>49); GLUCOSE, FASTING 182 MG/DL (70-100); POTASSIUM SERUM 3.9 MEQ/L (3.5-5.1); SODIUM LEVEL 136 MEQ/L (136-145)
[2019-12-24 08:00] VITALS: O2SAT 91
[2019-12-24] MEDS: ADVAIR HFA 45/21MCG INHALER INH SCH (08:10)
[2019-12-24] MEDS: allopurinoL 300 MG TAB PO SCH (08:19)
[2019-12-24] MEDS: BACTRIM 160MG/800MG DS TAB PO SCH (08:19)
[2019-12-24] MEDS: HumaLOG INSULIN (NovoLOG) PER UNIT SC SCH ×2 (08:19→12:24)
[2019-12-24] MEDS: GABAPENTIN 300 MG CAP PO SCH (08:20)
[2019-12-24] MEDS: LACTOBACILLUS ACIDOPHILUS CAP (BACID) PO SCH (08:20)
[2019-12-24] MEDS: FLUoxetine 20 MG CAP PO SCH (08:20)
[2019-12-24] MEDS: ATORVASTATIN 20 MG TAB PO SCH (08:20)
[2019-12-24] MEDS: ENOXAPARIN 40MG/0.4ML SYRINGE (J1650 PER 10MG) SC SCH (08:20)
[2019-12-24] MEDS: SILVER SULFADIAZINE 1% CR 50 GM JAR TOP SCH (08:21)
--- NOTE | 2019-12-24 08:21 | IPN ---
DATE: 12/23/2019 at 7:50 a.m. Patient seen for evaluation of left foot surgery, incision and drainage of superficial and deep compartment of the left foot. The bandage is intact with no break through bleeding noted. The bandage was removed today. The patient states he is greatly improved. He states he is not having any foot or calf pain. Physical exam reveals no pain to compression of the calf. The foot bandage was completely removed as well as the packing on the superficial and deep planar space. There was minimal discharge noted from the wound. Considerable resolution of erythema is noted with the dorsal forefoot being red now just around the metatarsal heads. The initial ulcer is submetatarsal four with the incision on the planar surface tracking to the central arch. The wound was inspected. No purulence was noted deep to the plantar fascia. Some superficial purulence was noted in the Iodoform gauze drain. The wound was flushed with lavage. The only purulence noted was the purulence on the Iodoform gauze. Silvadene and dressing was applied to the patient's left foot. I ordered x-rays and C-reactive protein. They are reviewed now. The x-rays reveal no change with no signs of osteomyelitis of the metatarsals. Some resolution of the soft tissue swelling is noted. Laboratory studies revealed the C-reactive protein on 12/23/2019 to be 7.22. Today, the C-reactive protein has reduced to 4.75. Cultures reveal methicillin resistant Staphylococcus aureus (MRSA). No change from the culture that was obtained in my office. The patient's questions are answered. Patient's GFR is greater than 60. His culture reveals MRSA which is sensitive to Bactrim. When he is discharged from the hospital, he could be placed on oral antibiotics, Bactrim double strength one by mouth twice a day with daily bandage changes of Silvadene and dressing to his left extremity. The patient can bear weight, however, he was advised to try to keep the weight towards his heel. His questions were answered.
[2019-12-24] MEDS: buPROPion **XL** TABLET 150MG (WELLBUTRIN XL) PO SCH (08:24)
[2019-12-24] MEDS ORDERED: TORSEMIDE 20 MG TAB PO SCH (09:00)
[2019-12-24] MEDS ORDERED: SILV50CR TOP (10:52)
[2019-12-24] MEDS ORDERED: SULF1TAB93 PO (12:02)
--- NOTE | 2019-12-24 16:23 | DS.PDOC ---
Discharge Summary General Date of Admission Dec 18, 2019 at 23:47 Date of Discharge 12/24/2019 Primary Care Physician: SIRISHA OWUSU PA-C Attending Physician: JON GUERRERO MD Specialist/Consultants Involve: Carloz Hess Discharge Summary PROCEDURES PERFORMED DURING STAY: Incision and drainage of left foot. ADMITTING/DISCHARGE DIAGNOSES: Left lower extremity abscess of the foot Sepsis Congestive heart failure COPD Type 2 diabetes with neuropathy Hyperlipidemia Hypertension next line asthma Obstructive sleep apnea on CPAP Obesity Anxiety disorder History of prostate cancer s/p RT 2007 History of kidney stones due to high dose potassium Mild intermittent asthma controlled with Advair Rosacea Chronic diarrhea related to radiation Proctitis. Erectile dysfunction H/O Clostridium Difficile 05/2018. COMPLICATIONS/CHIEF COMPLAINT: Shortness of breath, left lower extremity pain HISTORY OF PRESENT ILLNESS/HOSPITAL COURSE: Patient is a 69-year-old male who presented to the emergency department with shortness of breath, fevers, and left lower extremity erythema/swelling. Patient has a history of a chronic foot wound on the base of his left fifth toe that had been last evaluated by Dr. Hess a month prior that was initially treated with salve without improvement so he was placed on keflex the day prior to ED evaluation. In ED, he was found to be febrile, hypotensive, tachypneic, satting 88% on room air, with lab work demonstrating a leukocytosis and CTA showing groundglass opacities. After fluid resuscitation, hospitalist team was called for admission. Blood cultures, respirate panel, Covid PCR, GI panel were all ordered and were negative. Broad- spectrum antibiotic coverage was started and podiatry was consulted. Patient shortness of breath was deemed to be due to congestive heart failure so patient was diuresed. Patient was made nothing by mouth early in the morning and went for incision and drainage the following day. Patient was also diuresed with improvement in shortness of breath by hospital stay day 2. Patient's wound cultures grew MRSA so vancomycin was continued with sensitivities pending at that time. Lasix was also continued as the patient still clinically appeared volume overloaded. Patient improved both clinically and on his lab work and imaging. He was transitioned to oral Lasix and based on sensitivities was switched to Bactrim with instructions to apply Silvadene and dressing to his left lower extremity and weight-bear towards his heel. Patient was cleared by physical therapy and deemed stable for discharge with home care and instructions to follow-up with his PCP and the podiatry office. DISCHARGE MEDICATIONS: Please see below. ALLERGIES: Please see below. Vitals: (see below) General: Obese male in no acute distress lying comfortably in bed. HEENT: Normocephalic, atraumatic. EOMI. No scleral icterus. Moist mucous membranes. No pharyngeal erythema or uvular deviation. Neck: No JVD, lymphadenopathy, or thyromegaly. Cardiac: RRR, Normal S1 and S2, No murmurs, gallops, rubs. Pulm: Clear to auscultation b/l. Symmetric thorax. No wheezing, crackles, rhonchi Abd: Bowel Sounds present. Abdomen is soft, non-tender, non-distended. Ext: Left lower extremity without erythema or edema. Left foot with surgical dressing in place. Skin: No skin changes Neuro: No focal neuro deficits Psych: Appropriate mood and affect LABORATORY DATA: Please see below. IMAGIN12/18/2019 chest x-ray: Cardiomegaly and chronic changes, stable. No acute infiltrate. 12/18/2019 left lower extremity vascular ultrasound: No acute findings. No evidence of DVT. 12/18/2019 CT angiogram chest: 1. Bilateral geographic ground-glass opacities most pronounced in the mid and lower lung zones likely related to atelectasis in this patient with a poor inspiratory effort. Although nonspecific, clinical correlation to exclude infection suggested. 2. Bilateral pleural thickening in the lower lung zones. 3. There is no aortic dissection or aneurysm. 4. Cardiomegaly. 5. There are no pulmonary emboli. 12/18/2023 left foot x-ray: Findings suggest cellulitis and acute infectious/inflammatory process. Osteomyelitis cannot definitively be excluded based on current radiographic examination. 12/23/2019 left foot x-ray: Chronic changes with no new abnormalities noted. PROGNOSIS: stable ACTIVITY: As tolerated. DIET: As tolerated DISCHARGE PLAN: Home with home care DISCHARGE INSTRUCTIONS: 1. Please return to hospital if symptoms worsen. 2. Please complete 7 day course of Bactrim. 3. Please continue with daily bandage changes of Silvadene and dressing to left lower extremity. 4. Okay to bear weight on foot, but advised to keep weight towards heel. 5. Follow up with Dr Martinez in 1 week, Follow up with PMD in 1 week ITEMS TO FOLLOWUP ON ON OUTPATIENT: 1. Patient should be titrated for new CPAP machine as his is over 25 years old and he states the in hospital settings do not work for him. DISCHARGE CONDITION: [Stable]. TIME SPENT ON DISCHARGE: 35 minutes. Vital Signs/I&Os Vital Signs Date Time Temp Pulse Resp B/P (MAP) Pulse Ox O2 Delivery O2 Flow Rate FiO2 12/24/19 08:00 91 Room Air 12/24/19 06:00 97.6 77 21 131/71 (91) 12/23/19 22:00 I&O- Last 24 Hours up to 6 AM 12/24/19 06:00 Intake Total 1310 ml Output Total 2350 ml Balance -1040 ml Laboratory Data Labs 24H Laboratory Tests 2 12/23/19 16:38: Bedside Glucose (Misc Panel) 204H 12/23/19 20:04: Bedside Glucose (Misc Panel) 199H 12/24/19 06:11: Immature Granulocyte % (Auto) 2.1, Neutrophils (%) (Auto) 73.4H, Lymphocytes (%) (Auto) 12.0L, Monocytes (%) (Auto) 7.8H, Eosinophils (%) (Auto) 4.3H, Basophils (%) (Auto) 0.4, Neutrophils # (Auto) 4.9, Lymphocytes # (Auto) 0.8L, Monocytes # (Auto) 0.5, Eosinophils # (Auto) 0.3, Basophils # (Auto) 0.0, Nucleated Red Blood Cells % (auto) 0.0, Anion Gap 6L, Glomerular Filtration Rate > 60.0, Calcium Level 8.6L, C-Reactive Protein, Quantitative 4.75H 12/24/19 11:34: Bedside Glucose (Misc Panel) 197H CBC/BMP Laboratory Tests 12/24/19 06:11 FSBS Laboratory Tests Test 12/23/19 16:38 12/23/19 20:04 12/24/19 11:34 Range/Units Bedside Glucose (Misc Panel) 204 199 197 80-115 MG/DL Microbiology Microbiology 12/20/19 Gram Stain - Final, Complete 12/20/19 Abscess Culture - Final, Complete Staph.aureus Methicillin Resis 12/20/19 Anaerobic Culture - Final, Complete 12/19/19 Gastrointestinal Tract Panel (PCR) - Final, Complete 12/19/19 Coronavirus COVID-19 PCR ([facility]ERCEDE[facility]) - Final, Complete 12/18/19 Respiratory Panel (PCR) - Final, Complete 12/18/19 Blood Culture - Final, Complete NO GROWTH AFTER 5 DAYS 12/18/19 Blood Culture - Final, Complete NO GROWTH AFTER 5 DAYS Discharge Medications Scheduled Allopurinol (Zyloprim) 300 Mg Tab, 300 MG PO DAILY, (Reported) Atorvastatin Calcium (Lipitor) 80 Mg Tab, 80 MG PO DAILY, (Reported) Bupropion HCl (Bupropion Xl) 150 Mg Tab.er.24h, 150 MG PO DAILY, (Reported) Cephalexin (Cephalexin) 500 Mg Capsule, 500 MG PO Q6H, (Reported) started 12/17/19 for 10 days Colesevelam Hydrochloride (Welchol) 625 Mg Tablet, 1,875 MG PO BID, (Reported) Empagliflozin (Jardiance) 25 Mg Tablet, 25 MG PO DAILY, (Reported) Fluoxetine HCl (Prozac) 40 Mg Cap, 40 MG PO DAILY, (Reported) Gabapentin (Neurontin) 600 Mg Tab, 600 MG PO TID, (Reported) Glipizide (Glipizide ER) 10 Mg Tab, 10 MG PO DAILY, (Reported) Insulin Glargine/Lixisenatide (Soliqua 100 Unit-33 Mcg/ml Pen) 3 Ml Insuln.pen, 60 UNITS SC DAILY, (Reported) Lisinopril/Hydrochlorothiazide (Zestoretic 20-25 mg Tablet) 1 Tab Tab, 1 TAB PO DAILY, (Reported) Hammond-3/Dha/Epa/Fish Oil (Fish Oil EC 1,000 mg Softgel) 1 Cap Cap, 1 CAP PO DAILY, (Reported) Pioglitazone HCl (Actos) 30 Mg Tab, 30 MG PO DAILY, (Reported) Potassium Citrate (Potassium Citrate 10MEQ (Urocit-K)) 10 Meq Tablet.er, 10 MEQ PO BID, (Reported) Salmeterol/Fluticasone (Advair 100-50 Diskus) 28 Puff/Inhaler Aerp, 1 PUFF INH BID, (Reported) Silver Sulfadiazine (Ssd) 50 Gm Cream..g., 0 GM TOP BID Sulfamethoxazole/Trimethoprim (Sulfamethoxazole-Tmp Ds Tablet) 1 Each Tablet, 1 TAB PO BID Please take 1 tab by mouth twice daily Torsemide (Torsemide) 10 Mg Tablet, 10 MG PO DAILY, (Reported) Scheduled PRN Albuterol Sulfate (Ventolin Hfa) 108 Mcg/Act Aer, 2 PUFF INH Q6H PRN for SHORTNESS OF BREATH, (Reported) Allergies Coded Allergies: Penicillins (Verified Allergy, Mild, rash, 12/18/19) erythromycin base (Verified Allergy, Mild, RASH, 12/18/19) metformin (Verified Adverse Reaction, Mild, diarrhea, 12/18/19) GME ATTESTATION GME ATTESTATION My faculty preceptor for this patient encounter was physically present during the encounter and was fully available. All aspects of the patient interview, examination, medical decision making process, and medical care plan development were reviewed and approved by the faculty preceptor. The faculty preceptor is aware and concurs with the plan as stated in the body of this note and will attest to such by his/her cosignature. ATTENDING NOTE I have independently interviewed and examined the patient at the bedside, and agree with the aforementioned management plans and physical findings as documented by my Resident Physician. I have personally spent 35 minutes in counselling the patient and coordinating his discharge. TRISTAN KENNEDY DO Dec 24, 2019 16:23 JON GUERRERO MD Dec 26, 2019 12:34
== END 2019-12-24 13:50 | disposition home health service (06) | DRG 854 ==
LOC: M ED 18:36 → EEVIPCON 23:47 → M ED INP 23:47 → CANRESERV 12-19 01:37 → ENRESERVTM 12-19 01:37 → ENRESERVDT 12-19 01:37 → ENRESERVTM 12-19 01:56 → ENRESERVDT 12-19 01:56 → M PCU 12-19 03:13 → M MSPAV 12-19 11:14
PROVIDERS: ADMIT General Practice; ATTEND Internal Medicine Nephrology
PROC: 0J9R0ZZ Drainage of Left Foot Subcutaneous Tissue and Fascia, Open Approach (ICD-10-PCS; principal; 2019-12-20 16:30)
DX: A41.9 Sepsis, unspecified organism (principal); L97.528 Non-pressure chronic ulcer of other part of left foot with other specified severity; N17.9 Acute kidney failure, unspecified; L02.612 Cutaneous abscess of left foot; M79.672 Pain in left foot; E11.42 Type 2 diabetes mellitus with diabetic polyneuropathy; E78.5 Hyperlipidemia, unspecified; I11.0 Hypertensive heart disease with heart failure; I50.9 Heart failure, unspecified; J45.20 Mild intermittent asthma, uncomplicated; F41.9 Anxiety disorder, unspecified; K52.9 Noninfective gastroenteritis and colitis, unspecified; L71.9 Rosacea, unspecified; K62.7 Radiation proctitis; B95.62 Methicillin resistant Staphylococcus aureus infection as the cause of diseases classified elsewhere; N52.9 Male erectile dysfunction, unspecified; G47.33 Obstructive sleep apnea (adult) (pediatric); E66.01 Morbid (severe) obesity due to excess calories; E11.621 Type 2 diabetes mellitus with foot ulcer; Z79.4 Long term (current) use of insulin; Z79.899 Other long term (current) drug therapy; Z88.0 Allergy status to penicillin; Z88.1 Allergy status to other antibiotic agents; Z88.8 Allergy status to other drugs, medicaments and biological substances; Z85.46 Personal history of malignant neoplasm of prostate; Z68.38 Body mass index [BMI] 38.0-38.9, adult

== ENCOUNTER → 2020-01-03 | Outpatient (REF) | payer MEDICARE ==
[~2020-01-03] MED LIST changes: +BUPR-365 PO; +CEPH500C PO; +COLE625TAB PO; +JARD1TAB3 PO; +POTA10808 PO; +SILV50CR TOP; +SULF1TAB93 PO; +TORS10TA3 PO
[2020-01-03 13:37] LABS: CALCIUM LEVEL 9.7 MG/DL (8.8-10.2); CREATININE FOR GFR 1.42 MG/DL (0.70-1.30); GLOMERULAR FILTRATION RATE 52.9 (>49)
== END ==
LOC: M SFHCADAM 10:27
PROVIDERS: ATTEND Physician Assistant
DX: E11.29 Type 2 diabetes mellitus with other diabetic kidney complication (principal); I50.32 Chronic diastolic (congestive) heart failure
CPT/HCPCS: 80048; 99495; G0463

== ENCOUNTER → 2020-01-07 | Outpatient (REF) | payer MEDICARE ==
[2020-01-07 14:25] LABS: BLOOD UREA NITROGEN 35 MG/DL (7-18); CALCIUM LEVEL 9.4 MG/DL (8.8-10.2); CARBON DIOXIDE LEVEL 27 MEQ/L (21-32); CHLORIDE LEVEL 101 MEQ/L (98-107); CREATININE FOR GFR 1.12 MG/DL (0.70-1.30); GLOMERULAR FILTRATION RATE > 60.0 (>49); GLUCOSE, FASTING 169 MG/DL (70-100); POTASSIUM SERUM 4.4 MEQ/L (3.5-5.1); SODIUM LEVEL 136 MEQ/L (136-145)
== END ==
LOC: M SHH 13:56
PROVIDERS: ATTEND Physician Assistant
DX: N18.3 Chronic kidney disease, stage 3 (moderate) (principal)

== ENCOUNTER → 2020-03-09 | Outpatient (REF) | payer MEDICARE ==
[2020-03-09 17:52] LABS: HEMATOCRIT 40.5 % (42.0-52.0); HEMOGLOBIN 13.1 g/dl (13.5-17.5); MEAN CORPUSCULAR HEMOGLOBIN 29.4 pg (27.0-33.0); MEAN CORPUSCULAR HGB CONC 32.3 g/dl (32.0-36.5); PLATELET COUNT, AUTOMATED 245 10^3/uL (150-450); RED BLOOD COUNT 4.45 10^6/uL (4.30-6.10); WHITE BLOOD COUNT 8.8 10^3/uL (4.0-10.0)
[2020-03-09 18:05] LABS: ALBUMIN 3.6 GM/DL (3.2-5.2); BILIRUBIN,TOTAL 0.6 MG/DL (0.2-1.0); CALCIUM LEVEL 9.9 MG/DL (8.8-10.2); CREATININE FOR GFR 1.36 MG/DL (0.70-1.30); GLOMERULAR FILTRATION RATE 55.6 (>49); POTASSIUM SERUM 3.9 MEQ/L (3.5-5.1); TOTAL PROTEIN 7.5 GM/DL (6.4-8.2)
[2020-03-09 19:20] LABS: HEMOGLOBIN A1c 7.1 %
== END ==
LOC: M SFHCPLAZ 15:26
PROVIDERS: ATTEND Nurse Practitioner Adult Health
DX: M79.89 Other specified soft tissue disorders (principal); E11.29 Type 2 diabetes mellitus with other diabetic kidney complication

== ENCOUNTER → 2020-03-10 | Outpatient (REF) | payer MEDICARE | LOC: M LAB REF 13:11 | PROVIDERS: ATTEND Podiatrist | DX: L03.116 Cellulitis of left lower limb (principal); M79.672 Pain in left foot ==

== ENCOUNTER → 2020-03-18 | Outpatient (REF) | payer MEDICARE | LOC: M LABDRWAD 16:37 | PROVIDERS: ATTEND Internal Medicine Cardiovascular Disease | DX: I50.32 Chronic diastolic (congestive) heart failure (principal) | CPT/HCPCS: 36415; 83735; 83880; G0463 ==

== ENCOUNTER → 2020-05-18 | Outpatient (REF) | payer MEDICARE ==
[2020-05-18 12:58] LABS: ALBUMIN 3.7 GM/DL (3.2-5.2); BLOOD UREA NITROGEN 29 MG/DL (7-18); CALCIUM LEVEL 9.6 MG/DL (8.8-10.2); CARBON DIOXIDE LEVEL 27 MEQ/L (21-32); CHLORIDE LEVEL 105 MEQ/L (98-107); CREATININE FOR GFR 0.96 MG/DL (0.70-1.30); GLOMERULAR FILTRATION RATE > 60.0 (>49); GLUCOSE, FASTING 105 MG/DL (70-100); MAGNESIUM LEVEL 2.3 MG/DL (1.8-2.4); NT-PRO BNP 71 PG/ML (<125); PHOSPHORUS LEVEL 3.1 MG/DL (2.5-4.9); POTASSIUM SERUM 3.9 MEQ/L (3.5-5.1); SODIUM LEVEL 138 MEQ/L (136-145)
== END ==
LOC: M LABDRWAD 12:09
PROVIDERS: ATTEND Internal Medicine Cardiovascular Disease
DX: I50.33 Acute on chronic diastolic (congestive) heart failure (principal)

== ENCOUNTER → 2020-05-27 | Outpatient (REF) | payer MEDICARE ==
[2020-05-27 14:45] LABS: CALCIUM LEVEL 10.5 MG/DL (8.8-10.2); CREATININE FOR GFR 1.41 MG/DL (0.70-1.30); GLOMERULAR FILTRATION RATE 53.4 (>49); MAGNESIUM LEVEL 2.4 MG/DL (1.8-2.4); PHOSPHORUS LEVEL 4.1 MG/DL (2.5-4.9); POTASSIUM SERUM 4.5 MEQ/L (3.5-5.1)
== END ==
LOC: M LABDRWAD 13:06
PROVIDERS: ATTEND Internal Medicine Cardiovascular Disease
DX: I50.32 Chronic diastolic (congestive) heart failure (principal)

== ENCOUNTER → 2020-06-17 | Outpatient (REF) | payer MEDICARE ==
[2020-06-17 13:52] LABS: ALBUMIN 3.3 GM/DL (3.2-5.2); BLOOD UREA NITROGEN 33 MG/DL (7-18); CALCIUM LEVEL 9.7 MG/DL (8.8-10.2); CARBON DIOXIDE LEVEL 31 MEQ/L (21-32); CHLORIDE LEVEL 101 MEQ/L (98-107); CREATININE FOR GFR 1.15 MG/DL (0.70-1.30); GLOMERULAR FILTRATION RATE > 60.0 (>49); GLUCOSE, FASTING 133 MG/DL (70-100); MAGNESIUM LEVEL 2.4 MG/DL (1.8-2.4); NT-PRO BNP 69 PG/ML (<125); PHOSPHORUS LEVEL 3.3 MG/DL (2.5-4.9); POTASSIUM SERUM 4.3 MEQ/L (3.5-5.1); SODIUM LEVEL 136 MEQ/L (136-145)
== END ==
LOC: M LABDRWAD 12:31
PROVIDERS: ATTEND Internal Medicine Cardiovascular Disease
DX: I50.32 Chronic diastolic (congestive) heart failure (principal)

== ENCOUNTER → 2020-07-10 | Outpatient (REF) | payer MEDICARE ==
[2020-07-10 13:55] LABS: BASO % 0.3 % (0.0-1.0); EOS # 0.2 10^3/uL (0.0-0.5); EOS % 3.4 % (0.0-3.0); HEMATOCRIT 44.3 % (42.0-52.0); HEMOGLOBIN 14.1 g/dl (13.5-17.5); LYMPH # 1.2 10^3/uL (1.5-5.0); LYMPH % 17.1 % (24.0-44.0); MEAN CORPUSCULAR HEMOGLOBIN 29.1 pg (27.0-33.0); MEAN CORPUSCULAR HGB CONC 31.8 g/dl (32.0-36.5); MEAN CORPUSCULAR VOLUME 91.3 fl (80.0-96.0); MONO # 0.6 10^3/uL (0.0-0.8); MONO % 8.2 % (0.0-5.0); NEUTROPHILS # 4.8 10^3/uL (1.5-8.5); NEUTROPHILS % 70.4 % (36.0-66.0); PLATELET COUNT, AUTOMATED 226 10^3/uL (150-450); RED BLOOD COUNT 4.85 10^6/uL (4.30-6.10); WHITE BLOOD COUNT 6.8 10^3/uL (4.0-10.0)
[2020-07-10 14:31] LABS: ALBUMIN 3.8 GM/DL (3.2-5.2); BLOOD UREA NITROGEN 37 MG/DL (7-18); CALCIUM LEVEL 10.3 MG/DL (8.8-10.2); CARBON DIOXIDE LEVEL 27 MEQ/L (21-32); CHLORIDE LEVEL 104 MEQ/L (98-107); CREATININE FOR GFR 0.98 MG/DL (0.70-1.30); GLOMERULAR FILTRATION RATE > 60.0 (>49); GLUCOSE, FASTING 109 MG/DL (70-100); MAGNESIUM LEVEL 2.6 MG/DL (1.8-2.4); NT-PRO BNP 50 PG/ML (<125); POTASSIUM SERUM 4.4 MEQ/L (3.5-5.1); SODIUM LEVEL 141 MEQ/L (136-145)
== END ==
LOC: M LABDRWAD 12:18
PROVIDERS: ATTEND Internal Medicine Cardiovascular Disease
DX: I50.32 Chronic diastolic (congestive) heart failure (principal)

== ENCOUNTER → 2020-07-20 | Outpatient (REF) | payer MEDICARE ==
[2020-07-20 14:41] LABS: CALCIUM LEVEL 9.9 MG/DL (8.8-10.2); CREATININE FOR GFR 1.38 MG/DL (0.70-1.30); GLOMERULAR FILTRATION RATE 54.5 (>49); POTASSIUM SERUM 4.5 MEQ/L (3.5-5.1)
== END ==
LOC: M LABDRWAD 13:17
PROVIDERS: ATTEND Internal Medicine Cardiovascular Disease
DX: I50.33 Acute on chronic diastolic (congestive) heart failure (principal)

== ENCOUNTER → 2020-08-14 | Outpatient (CLI) | payer MEDICARE ==
[2020-08-14 13:57] LABS: BLOOD UREA NITROGEN 46 MG/DL (7-18); CALCIUM LEVEL 9.6 MG/DL (8.8-10.2); CARBON DIOXIDE LEVEL 28 MEQ/L (21-32); CHLORIDE LEVEL 101 MEQ/L (98-107); CREATININE FOR GFR 1.24 MG/DL (0.70-1.30); GLOMERULAR FILTRATION RATE > 60.0 (>49); GLUCOSE, FASTING 126 MG/DL (70-100); PHOSPHORUS LEVEL 3.8 MG/DL (2.5-4.9); POTASSIUM SERUM 4.3 MEQ/L (3.5-5.1); SODIUM LEVEL 136 MEQ/L (136-145)
== END ==
LOC: M PLALAB 11:18
PROVIDERS: ATTEND Internal Medicine Cardiovascular Disease
DX: I50.32 Chronic diastolic (congestive) heart failure (principal)

== ENCOUNTER → 2020-09-25 | Outpatient (REF) | payer MEDICARE ==
[~2020-09-25] MED LIST changes: -CLIN150C14 PO; +CLIN150C15 PO
[2020-09-25 19:02] LABS: ALBUMIN 3.9 GM/DL (3.2-5.2); BLOOD UREA NITROGEN 41 MG/DL (7-18); CALCIUM LEVEL 10.5 MG/DL (8.8-10.2); CARBON DIOXIDE LEVEL 32 MEQ/L (21-32); CHLORIDE LEVEL 99 MEQ/L (98-107); CREATININE FOR GFR 1.15 MG/DL (0.70-1.30); GLOMERULAR FILTRATION RATE > 60.0 (>49); GLUCOSE, FASTING 129 MG/DL (70-100); NT-PRO BNP 62 PG/ML (<125); PHOSPHORUS LEVEL 3.6 MG/DL (2.5-4.9); POTASSIUM SERUM 4.4 MEQ/L (3.5-5.1); SODIUM LEVEL 137 MEQ/L (136-145)
== END ==
LOC: M LABDRWAD 16:39
PROVIDERS: ATTEND Internal Medicine Cardiovascular Disease
DX: I50.32 Chronic diastolic (congestive) heart failure (principal); L97.422 Non-pressure chronic ulcer of left heel and midfoot with fat layer exposed

== ENCOUNTER → 2020-11-03 | Outpatient (REF) | payer MEDICARE ==
[2020-11-03 13:01] LABS: HEMATOCRIT 45.5 % (42.0-52.0); HEMOGLOBIN 14.4 g/dl (13.5-17.5); MEAN CORPUSCULAR HEMOGLOBIN 28.6 pg (27.0-33.0); MEAN CORPUSCULAR HGB CONC 31.6 g/dl (32.0-36.5); MEAN CORPUSCULAR VOLUME 90.5 fl (80.0-96.0); PLATELET COUNT, AUTOMATED 229 10^3/uL (150-450); RED BLOOD COUNT 5.03 10^6/uL (4.30-6.10); WHITE BLOOD COUNT 6.7 10^3/uL (4.0-10.0)
[2020-11-03 13:41] LABS: ALT/SGPT 27 U/L (12-78); BILIRUBIN,TOTAL 0.4 MG/DL (0.2-1.0); BLOOD UREA NITROGEN 38 MG/DL (7-18); CALCIUM LEVEL 10.1 MG/DL (8.8-10.2); CARBON DIOXIDE LEVEL 29 MEQ/L (21-32); CHLORIDE LEVEL 100 MEQ/L (98-107); CREATININE FOR GFR 1.22 MG/DL (0.70-1.30); CREATININE, URINE 79.5 MG/DL; FREE T4 0.97 NG/DL (0.76-1.46); GLOMERULAR FILTRATION RATE > 60.0 (>49); GLUCOSE, FASTING 138 MG/DL (70-100); MALB URINE SIEMENS 14.6 MG/L; MAU/CREAT RATIO 18.3 MCG/MG (0.0-30.0); POTASSIUM SERUM 4.2 MEQ/L (3.5-5.1); SODIUM LEVEL 138 MEQ/L (136-145); TOTAL PROTEIN 7.7 GM/DL (6.4-8.2)
== END ==
LOC: M SFHCADAM 08:11
PROVIDERS: ATTEND Physician Assistant
DX: E11.29 Type 2 diabetes mellitus with other diabetic kidney complication (principal); E78.2 Mixed hyperlipidemia; J30.2 Other seasonal allergic rhinitis

== ENCOUNTER → 2021-01-20 | Outpatient (REF) | payer MEDICARE ==
[~2021-01-20] MED LIST changes: +BACTDSTA PO; -SULF1TAB93 PO
[2021-01-20 13:00] LABS: HEMATOCRIT 46.2 % (42.0-52.0); HEMOGLOBIN 14.5 g/dl (13.5-17.5); MEAN CORPUSCULAR HEMOGLOBIN 28.5 pg (27.0-33.0); MEAN CORPUSCULAR HGB CONC 31.4 g/dl (32.0-36.5); MEAN CORPUSCULAR VOLUME 90.9 fl (80.0-96.0); PLATELET COUNT, AUTOMATED 222 10^3/uL (150-450); RED BLOOD COUNT 5.08 10^6/uL (4.30-6.10); WHITE BLOOD COUNT 5.8 10^3/uL (4.0-10.0)
[2021-01-20 13:26] LABS: ALBUMIN 3.7 GM/DL (3.2-5.2); ALT/SGPT 24 U/L (12-78); BILIRUBIN,TOTAL 0.5 MG/DL (0.2-1.0); BLOOD UREA NITROGEN 32 MG/DL (7-18); CALCIUM LEVEL 9.7 MG/DL (8.8-10.2); CARBON DIOXIDE LEVEL 31 MEQ/L (21-32); CHLORIDE LEVEL 102 MEQ/L (98-107); CREATININE FOR GFR 1.04 MG/DL (0.70-1.30); GLOMERULAR FILTRATION RATE > 60.0 (>49); GLUCOSE, FASTING 149 MG/DL (70-100); NT-PRO BNP 51 PG/ML (<125); POTASSIUM SERUM 4.1 MEQ/L (3.5-5.1); SODIUM LEVEL 138 MEQ/L (136-145); TOTAL PROTEIN 7.4 GM/DL (6.4-8.2)
== END ==
LOC: M LABDRWAD 12:30
PROVIDERS: ATTEND Internal Medicine Cardiovascular Disease
DX: I50.32 Chronic diastolic (congestive) heart failure (principal)

== ENCOUNTER → 2021-01-20 | Outpatient (REF) | payer MEDICARE ==
[2021-01-20 13:25] LABS: BLOOD UREA NITROGEN 32 MG/DL (7-18); CARBON DIOXIDE LEVEL 31 MEQ/L (21-32); CHLORIDE LEVEL 102 MEQ/L (98-107); CREATININE FOR GFR 1.04 MG/DL (0.70-1.30); GLOMERULAR FILTRATION RATE > 60.0 (>49); GLUCOSE, FASTING 152 MG/DL (70-100); HEMOGLOBIN A1c 7.4 %; POTASSIUM SERUM 4.1 MEQ/L (3.5-5.1); SODIUM LEVEL 139 MEQ/L (136-145)
[2021-01-20 13:26] LABS: ALBUMIN 3.7 GM/DL (3.2-5.2); ALT/SGPT 25 U/L (12-78); BILIRUBIN,TOTAL 0.4 MG/DL (0.2-1.0); CALCIUM LEVEL 9.6 MG/DL (8.8-10.2); CHOLESTEROL LEVEL 229 MG/DL (<200); HDL CHOLESTEROL 53 MG/DL (>40); LDL CHOLESTEROL 103 MG/DL (<100); NON-HDL-C 176 MG/DL; PROSTATIC SPECIFIC AG MONITOR 0.16 NG/ML (< 4.00); TOTAL PROTEIN 7.3 GM/DL (6.4-8.2); TRIGLYCERIDES LEVEL 365 MG/DL (<150)
== END ==
LOC: M SFHCADAM 09:09
PROVIDERS: ATTEND Physician Assistant
DX: I50.32 Chronic diastolic (congestive) heart failure (principal); R60.0 Localized edema; E11.22 Type 2 diabetes mellitus with diabetic chronic kidney disease; C61 Malignant neoplasm of prostate

== ENCOUNTER → 2021-04-19 | Outpatient (REF) | payer MEDICARE ==
[~2021-04-19] MED LIST changes: -CLIN150C15 PO; +CLIN150C17 PO
[2021-04-19 14:03] LABS: HEMOGLOBIN A1c 7.4 %
== END ==
LOC: M SFHCADAM 09:38
PROVIDERS: ATTEND Physician Assistant
DX: E11.22 Type 2 diabetes mellitus with diabetic chronic kidney disease (principal)

== ENCOUNTER → 2021-04-23 | Outpatient (REF) | payer MEDICARE ==
[2021-04-23 13:45] LABS: HEMATOCRIT 47.9 % (42.0-52.0); HEMOGLOBIN 15.6 g/dl (13.5-17.5); MEAN CORPUSCULAR HEMOGLOBIN 28.6 pg (27.0-33.0); MEAN CORPUSCULAR HGB CONC 32.6 g/dl (32.0-36.5); MEAN CORPUSCULAR VOLUME 87.7 fl (80.0-96.0); PLATELET COUNT, AUTOMATED 245 10^3/uL (150-450); RED BLOOD COUNT 5.46 10^6/uL (4.30-6.10); WHITE BLOOD COUNT 8.2 10^3/uL (4.0-10.0)
[2021-04-23 14:40] LABS: CREATININE FOR GFR 1.27 MG/DL (0.70-1.30); POTASSIUM SERUM 4.4 MEQ/L (3.5-5.1)
== END ==
LOC: M SFHCADAM 11:21
PROVIDERS: ATTEND Physician Assistant
DX: I50.32 Chronic diastolic (congestive) heart failure (principal); E08.40 Diabetes mellitus due to underlying condition with diabetic neuropathy, unspecified; I12.9 Hypertensive chronic kidney disease with stage 1 through stage 4 chronic kidney disease, or unspecified chronic kidney disease; N18.31 Chronic kidney disease, stage 3a; L97.412 Non-pressure chronic ulcer of right heel and midfoot with fat layer exposed

== ENCOUNTER → 2021-05-17 | Outpatient (CLI) | payer MEDICARE ==
[~2021-05-17] MED LIST changes: +ACET-683 PO; +ALLO300T2 PO; +ECOT81TA5 PO; +FURO40TA2 PO; +METR0.7533 EXT; +RANI15TA PO; +SPIR-10 PO; +TRAD5TAB PO
== END ==
LOC: M LABSMTC 10:12
PROVIDERS: ATTEND Anesthesiology
DX: Z01.818 Encounter for other preprocedural examination (principal); Z11.52 Encounter for screening for COVID-19

== ENCOUNTER → 2021-05-18 | Outpatient (REF) | payer MEDICARE ==
[~2021-05-18] MED LIST changes: +POTA-149 PO; -POTA10TA16 PO
[2021-05-18 14:43] LABS: ALBUMIN 3.4 GM/DL (3.2-5.2); BLOOD UREA NITROGEN 30 MG/DL (7-18); CALCIUM LEVEL 9.8 MG/DL (8.8-10.2); CARBON DIOXIDE LEVEL 29 MEQ/L (21-32); CHLORIDE LEVEL 105 MEQ/L (98-107); CREATININE FOR GFR 0.96 MG/DL (0.70-1.30); GLOMERULAR FILTRATION RATE > 60.0 (>49); GLUCOSE, FASTING 160 MG/DL (70-100); MAGNESIUM LEVEL 2.4 MG/DL (1.8-2.4); PHOSPHORUS LEVEL 3.7 MG/DL (2.5-4.9); POTASSIUM SERUM 4.4 MEQ/L (3.5-5.1); SODIUM LEVEL 139 MEQ/L (136-145)
== END ==
LOC: M LABDRWAD 12:37
PROVIDERS: ATTEND Internal Medicine Cardiovascular Disease
DX: I50.32 Chronic diastolic (congestive) heart failure (principal)

== ENCOUNTER 2021-05-19 10:10 | Day surgery (SDC) | payer MEDICARE ==
[~2021-05-19] VITALS: Ht 182.9 cm; Wt 123.1 kg
[~2021-05-19 10:10] MED LIST changes: +BUPIVACAINE HCL 0.5% 30 ML VIAL As Ordered ONE; +CLINDAMYCIN 600 MG in IV 1 EA IV ONE; +KETOROLAC 60MG 2ML VIAL As Ordered ONE; +LIDOCAINE 1% MDV 20ML VIAL As Ordered ONE; +LIDOCAINE 1% MDV 20ML VIAL SQ PRN; +LIDOCAINE 2% 100MG/5ML SDV (FOR ANES.) As Ordered ONE; +LR 1,000 ML IV ONE; +MIDAZOLAM INJ 2MG/2ML VIAL (J2250 PER 1MG) As Ordered ONE; +ONDANSETRON 4MG/2ML VIAL As Ordered ONE; -POTA-149 PO; +POTA10TA16 PO; +dexameTHASONE 4 MG/ML 1ML VIAL (J1100 PER 1MG) As Ordered ONE; +fentaNYL 100 MCG/2 ML INJECTION (J3010) As Ordered ONE; +propofoL 200 MG/20 ML VIAL As Ordered ONE
[2021-05-19 12:50] VITALS: BP 130/77
--- NOTE | 2021-05-19 13:30 | RO ---
OPERATIVE NOTE DATE OF OPERATION: 05/19/2021 SURGEON: Cipriano Paul DPM FLASHER ADJUSTER: None. PREOPERATIVE DIAGNOSIS: Left fourth metatarsal deformity. POSTOPERATIVE DIAGNOSIS: Left fourth metatarsal deformity. PROCEDURE: Left fourth metatarsal head excision. ANESTHESIA: Monitored anesthesia care. PREOPERATIVE INJECTION: 10 cc of a one-to-one mixture of 1% lidocaine plain and 0.5% Marcaine plain. ESTIMATED BLOOD LOSS: Minimal. MATERIALS: 3-0 Vicryl and 3-0 nylon. INJECTABLES: None. COMPLICATIONS: None. SPECIMENS: Left fourth metatarsal head. 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 He has a nonhealing wound at this site caused by the pressure from the metatarsal bone. The decision was made to to take him to the operating room for a fourth toe metatarsal head excision. The patient's side and site were identified and marked in the preoperative area. Consent was reviewed and obtained. The risks, complications, and alternatives to the procedure were explained to the patient in detail and all questions were answered. PROCEDURE: The patient was brought to the operating room and placed on the operating room table in the supine position. Monitored anesthesia care was delivered by the anesthesia team. Preoperative injection of 10 cc of a one-to-one mixture of 1% lidocaine plain and 0.5% Marcaine plain were injected to the left foot. The left foot was prepped and draped in normal sterile fashion. The tourniquet was applied to the left ankle and inflated at 250 mmHg. A dorsal incision was drawn over the fourth metatarsal head and carried through with a #15 blade. Dissection was carried until the fourth metatarsal was identified. Mcglamary elevator was used to release the plantar structures and a sagittal saw was used to resect the metatarsal head. This was sent for pathology. The site was irrigated with normal saline. Deep closure was performed with 3-0 Vicryl and the skin was closed with 3-0 nylon. Sterile dressings were applied. The tourniquet was deflated. The patient was brought to the PACU with vital signs stable and neurovascular status intact. He will be weightbearing as tolerated and follow up in the office in two days.
== END 2021-05-19 13:00 | disposition home or self-care (01) ==
LOC: M SDC 10:10
PROVIDERS: ATTEND Podiatrist Foot & Ankle Surgery
DX: M21.6X2 Other acquired deformities of left foot (principal); I11.0 Hypertensive heart disease with heart failure; I50.9 Heart failure, unspecified; E78.00 Pure hypercholesterolemia, unspecified; E11.40 Type 2 diabetes mellitus with diabetic neuropathy, unspecified; E11.621 Type 2 diabetes mellitus with foot ulcer; M10.9 Gout, unspecified; L71.9 Rosacea, unspecified; L70.9 Acne, unspecified; G62.9 Polyneuropathy, unspecified; J45.909 Unspecified asthma, uncomplicated; Z92.3 Personal history of irradiation; G47.30 Sleep apnea, unspecified; R06.83 Snoring; Z85.46 Personal history of malignant neoplasm of prostate; Z88.1 Allergy status to other antibiotic agents; Z88.8 Allergy status to other drugs, medicaments and biological substances; Z88.0 Allergy status to penicillin; Z79.899 Other long term (current) drug therapy; Z79.51 Long term (current) use of inhaled steroids; Z79.82 Long term (current) use of aspirin; Z79.4 Long term (current) use of insulin
CPT/HCPCS: 28112; 88304; 88311; J1100; J1885; J2250; J2405; J3010; U0002

== ENCOUNTER → 2021-11-05 | Outpatient (REF) | payer MEDICARE ==
[~2021-11-05] MED LIST changes: -BUPIVACAINE HCL 0.5% 30 ML VIAL As Ordered ONE; -CLINDAMYCIN 600 MG in IV 1 EA IV ONE; -KETOROLAC 60MG 2ML VIAL As Ordered ONE; -LIDOCAINE 1% MDV 20ML VIAL As Ordered ONE; -LIDOCAINE 1% MDV 20ML VIAL SQ PRN; -LIDOCAINE 2% 100MG/5ML SDV (FOR ANES.) As Ordered ONE; -LR 1,000 ML IV ONE; -MIDAZOLAM INJ 2MG/2ML VIAL (J2250 PER 1MG) As Ordered ONE; -ONDANSETRON 4MG/2ML VIAL As Ordered ONE; +POTA-149 PO; -POTA10TA16 PO; -dexameTHASONE 4 MG/ML 1ML VIAL (J1100 PER 1MG) As Ordered ONE; -fentaNYL 100 MCG/2 ML INJECTION (J3010) As Ordered ONE; -propofoL 200 MG/20 ML VIAL As Ordered ONE
[2021-11-05 13:37] LABS: HEMATOCRIT 45.6 % (42.0-52.0); HEMOGLOBIN 14.8 g/dl (13.5-17.5); MEAN CORPUSCULAR HGB CONC 32.5 g/dl (32.0-36.5); MEAN CORPUSCULAR VOLUME 89.4 fl (80.0-96.0); PLATELET COUNT, AUTOMATED 213 10^3/uL (150-450); WHITE BLOOD COUNT 7.2 10^3/uL (4.0-10.0)
[2021-11-05 14:20] LABS: ALBUMIN 3.8 GM/DL (3.2-5.2); BLOOD UREA NITROGEN 31 MG/DL (7-18); CALCIUM LEVEL 10.2 MG/DL (8.8-10.2); CARBON DIOXIDE LEVEL 30 MEQ/L (21-32); CHLORIDE LEVEL 103 MEQ/L (98-107); CREATININE FOR GFR 1.05 MG/DL (0.70-1.30); GLOMERULAR FILTRATION RATE > 60.0 (>49); GLUCOSE, FASTING 155 MG/DL (70-100); NT-PRO BNP 58 PG/ML (<125); PHOSPHORUS LEVEL 3.4 MG/DL (2.5-4.9); POTASSIUM SERUM 4.3 MEQ/L (3.5-5.1); SODIUM LEVEL 138 MEQ/L (136-145)
== END ==
LOC: M LAB REF 12:28 → M LABDRWAD 12:28
PROVIDERS: ATTEND Internal Medicine Cardiovascular Disease
DX: I50.32 Chronic diastolic (congestive) heart failure (principal)

== ENCOUNTER → 2021-11-16 | Outpatient (REF) | payer MEDICARE ==
[2021-11-16 13:20] LABS: CHOLESTEROL RISK RATIO 4.549 (<5); FREE T4 0.93 NG/DL (0.76-1.46); PROSTATIC SPECIFIC AG MONITOR 0.15 NG/ML (< 4.00); THYROID STIMULATING HORMONE 1.47 uIU/ML (0.358-3.740)
[2021-11-16 13:21] LABS: FOLATE 10.1 NG/ML
== END ==
LOC: M SFHCADAM 11:10
PROVIDERS: ATTEND Physician Assistant
DX: E11.22 Type 2 diabetes mellitus with diabetic chronic kidney disease (principal); E78.2 Mixed hyperlipidemia; Z85.46 Personal history of malignant neoplasm of prostate; G62.9 Polyneuropathy, unspecified

== ENCOUNTER → 2022-01-17 | Outpatient (CLI) | payer MEDICARE ==
[~2022-01-17] MED LIST changes: +BUPR-71 PO; -BUPR150T5 PO
== END ==
LOC: M ADAMS 11:24
PROVIDERS: ATTEND Nurse Practitioner Family
DX: Z85.46 Personal history of malignant neoplasm of prostate (principal)

== ENCOUNTER → 2022-01-20 | Outpatient (CLI) | payer MEDICARE ==
[~2022-01-20] MED LIST changes: +ISOVUE-300 61% 50ML VIAL As Ordered ONE; +LIDOCAINE 1% MDV 20ML VIAL As Ordered ONE
== END ==
LOC: M RADPRO 09:25
PROVIDERS: ATTEND Orthopaedic Surgery
DX: R93.7 Abnormal findings on diagnostic imaging of other parts of musculoskeletal system (principal); M17.11 Unilateral primary osteoarthritis, right knee
CPT/HCPCS: 27369; 73701; 77002; Q9967

== ENCOUNTER → 2022-02-03 | Outpatient (REF) | payer MEDICARE ==
[~2022-02-03] MED LIST changes: -ISOVUE-300 61% 50ML VIAL As Ordered ONE; -LIDOCAINE 1% MDV 20ML VIAL As Ordered ONE
[2022-02-03 13:26] LABS: BLOOD UREA NITROGEN 32 MG/DL (7-18); CALCIUM LEVEL 9.8 MG/DL (8.8-10.2); CARBON DIOXIDE LEVEL 26 MEQ/L (21-32); CHLORIDE LEVEL 101 MEQ/L (98-107); CREATININE FOR GFR 1.08 MG/DL (0.70-1.30); GLOMERULAR FILTRATION RATE > 60.0 (>49); GLUCOSE, FASTING 141 MG/DL (70-100); POTASSIUM SERUM 4.4 MEQ/L (3.5-5.1); SODIUM LEVEL 134 MEQ/L (136-145)
[2022-02-03 15:37] LABS: HEMOGLOBIN A1c 7.4 %
== END ==
LOC: M SFHCADAM 10:38
PROVIDERS: ATTEND Physician Assistant
DX: E11.9 Type 2 diabetes mellitus without complications (principal)

== ENCOUNTER → 2022-05-19 | Outpatient (REF) | payer MEDICARE ==
[~2022-05-19] MED LIST changes: +COLE625T17 PO; -COLE625TAB PO; +FISH10005 PO; -FISH7.5C PO
[2022-05-19 13:26] LABS: BLOOD UREA NITROGEN 24 MG/DL (7-18); CARBON DIOXIDE LEVEL 26 MEQ/L (21-32); CHLORIDE LEVEL 105 MEQ/L (98-107); GLOMERULAR FILTRATION RATE > 60.0 (>49); GLUCOSE, FASTING 135 MG/DL (70-100); POTASSIUM SERUM 4.7 MEQ/L (3.5-5.1); SODIUM LEVEL 138 MEQ/L (136-145)
== END ==
LOC: M LABDRWAD 12:35
PROVIDERS: ATTEND Orthopaedic Surgery
DX: M23.221 Derangement of posterior horn of medial meniscus due to old tear or injury, right knee (principal)

== ENCOUNTER → 2022-09-08 | Outpatient (REF) | payer MEDICARE ==
[~2022-09-08] MED LIST changes: +METR0.7526 EXT; -METR0.7533 EXT
[2022-09-08 13:14] LABS: HEMATOCRIT 45.9 % (42.0-52.0); HEMOGLOBIN 14.9 g/dl (13.5-17.5); MEAN CORPUSCULAR HEMOGLOBIN 29.5 pg (27.0-33.0); MEAN CORPUSCULAR HGB CONC 32.5 g/dl (32.0-36.5); MEAN CORPUSCULAR VOLUME 90.9 fl (80.0-96.0); PLATELET COUNT, AUTOMATED 211 10^3/uL (150-450); RED BLOOD COUNT 5.05 10^6/uL (4.30-6.10); WHITE BLOOD COUNT 7.5 10^3/uL (4.0-10.0)
[2022-09-08 13:51] LABS: CREATININE, URINE 99.7 MG/DL
[2022-09-08 13:53] LABS: ALBUMIN 4.1 G/DL (3.2-5.2); ALKALINE PHOSPHATASE 105 U/L (46-116); ALT/SGPT 16 U/L (7.0-40); AST/SGOT 20 U/L (<34); BILIRUBIN,TOTAL 0.6 MG/DL (0.3-1.2); BLOOD UREA NITROGEN 35 MG/DL (9-23); CALCIUM LEVEL 9.8 MG/DL (8.3-10.6); CARBON DIOXIDE LEVEL 27 MMOL/L (20-31); CHLORIDE LEVEL 100 MMOL/L (98-107); CHOLESTEROL LEVEL 240 MG/DL (<200); CHOLESTEROL RISK RATIO 4.66 (<5); CREATININE FOR GFR 0.94 MG/DL (0.70-1.30); FREE T4 1.35 NG/DL (0.89-1.76); GLOMERULAR FILTRATION RATE > 60.0 (>42); GLUCOSE, FASTING 136 MG/DL (74-106); HDL CHOLESTEROL 51.5 MG/DL (>40); LDL CHOLESTEROL 111.3 MG/DL (<100); MAU/CREAT RATIO 46.1 MCG/MG (0.0-30.0); NON-HDL-C 189 MG/DL; POTASSIUM SERUM 4.1 MMOL/L (3.5-5.1); SODIUM LEVEL 139 MMOL/L (136-145); THYROID STIMULATING HORMONE 0.994 uIU/ML (0.55-4.78); TOTAL PROTEIN 7.4 G/DL (5.7-8.2); TRIGLYCERIDES LEVEL 386 MG/DL (<150)
== END ==
LOC: M SFHCADAM 08:44
PROVIDERS: ATTEND Physician Assistant
DX: E11.9 Type 2 diabetes mellitus without complications (principal); E78.2 Mixed hyperlipidemia

== ENCOUNTER → 2022-12-28 | Outpatient (REF) | payer MEDICARE ==
[2022-12-28 13:39] LABS: ALBUMIN 3.8 G/DL (3.2-5.2); BLOOD UREA NITROGEN 28 MG/DL (9-23); CALCIUM LEVEL 9.9 MG/DL (8.3-10.6); CARBON DIOXIDE LEVEL 28 MMOL/L (20-31); CHLORIDE LEVEL 103 MMOL/L (98-107); CREATININE FOR GFR 0.94 MG/DL (0.70-1.30); GLOMERULAR FILTRATION RATE > 60.0 (>42); GLUCOSE, FASTING 83 MG/DL (74-106); PHOSPHORUS LEVEL 3.2 MG/DL (2.4-5.1); POTASSIUM SERUM 3.9 MMOL/L (3.5-5.1); SODIUM LEVEL 137 MMOL/L (136-145)
== END ==
LOC: M LABDRAWC 12:35
PROVIDERS: ATTEND Internal Medicine Cardiovascular Disease
DX: I50.32 Chronic diastolic (congestive) heart failure (principal)

== ENCOUNTER → 2023-02-02 | Outpatient (REF) | payer MEDICARE ==
[2023-02-02 14:14] LABS: ALBUMIN 4.1 G/DL (3.2-5.2); ALKALINE PHOSPHATASE 117 U/L (46-116); ALT/SGPT 21 U/L (7.0-40); AST/SGOT 23 U/L (<34); BILIRUBIN,TOTAL 0.8 MG/DL (0.3-1.2); BLOOD UREA NITROGEN 40 MG/DL (9-23); CALCIUM LEVEL 9.5 MG/DL (8.3-10.6); CARBON DIOXIDE LEVEL 26 MMOL/L (20-31); CHLORIDE LEVEL 101 MMOL/L (98-107); CREATININE FOR GFR 1.04 MG/DL (0.70-1.30); GLOMERULAR FILTRATION RATE > 60.0 (>42); GLUCOSE, FASTING 119 MG/DL (74-106); SODIUM LEVEL 137 MMOL/L (136-145)
[2023-02-02 14:21] LABS: HEMOGLOBIN A1c 7.4 % (4.0-6.0)
== END ==
LOC: M LABDRWAD 13:10
PROVIDERS: ATTEND Physician Assistant
DX: E11.22 Type 2 diabetes mellitus with diabetic chronic kidney disease (principal); I12.9 Hypertensive chronic kidney disease with stage 1 through stage 4 chronic kidney disease, or unspecified chronic kidney disease; N18.31 Chronic kidney disease, stage 3a; R97.20 Elevated prostate specific antigen [PSA]

== ENCOUNTER → 2023-02-24 | Outpatient (CLI) | payer MEDICARE | LOC: M WHC 11:17 | PROVIDERS: ATTEND Physician Assistant | DX: Z87.442 Personal history of urinary calculi (principal) ==

== ENCOUNTER → 2023-03-01 | Outpatient (REF) | payer MEDICARE | LOC: M SFHCADAM 13:53 | PROVIDERS: ATTEND Physician Assistant | DX: Z85.46 Personal history of malignant neoplasm of prostate (principal) ==

== ENCOUNTER → 2023-03-09 | Outpatient (CLI) | payer MEDICARE ==
[~2023-03-09] MED LIST changes: +ISOVUE-370 76% 100ML VIAL As Ordered ONE
== END ==
LOC: M RAD 08:29
PROVIDERS: ATTEND Physician Assistant
DX: N28.89 Other specified disorders of kidney and ureter (principal)
CPT/HCPCS: 74170; Q9967

== ENCOUNTER → 2023-05-25 | Outpatient (CLI) | payer MEDICARE ==
[~2023-05-25] MED LIST changes: -ISOVUE-370 76% 100ML VIAL As Ordered ONE
== END ==
LOC: M WHC 10:17
PROVIDERS: ATTEND Physician Assistant
DX: M81.0 Age-related osteoporosis without current pathological fracture (principal)

== ENCOUNTER 2023-09-04 12:36 | Inpatient (IN) | payer MEDICARE ==
[~2023-09-04] VITALS: Ht 182.9 cm; Wt 118.6 kg
[~2023-09-04 12:36] MED LIST changes: -METR0.7526 EXT; +METR0.7526 TOP
[2023-09-04 13:47] LABS: BASO % 0.1 % (0.0-1.0); EOS # 0.2 10^3/uL (0.0-0.5); EOS % 1.9 % (0.0-3.0); HEMOGLOBIN 14.7 g/dl (13.5-17.5); LYMPH # 0.8 10^3/uL (1.5-5.0); LYMPH % 9.5 % (24.0-44.0); MEAN CORPUSCULAR HEMOGLOBIN 29.4 pg (27.0-33.0); MEAN CORPUSCULAR HGB CONC 33.4 g/dl (32.0-36.5); MONO # 0.5 10^3/uL (0.0-0.8); MONO % 6.2 % (2.0-8.0); NEUTROPHILS # 6.9 10^3/uL (1.5-8.5); NEUTROPHILS % 81.9 % (36.0-66.0); PLATELET COUNT, AUTOMATED 248 10^3/uL (150-450); WHITE BLOOD COUNT 8.4 10^3/uL (4.0-10.0)
[2023-09-04 13:58] LABS: INR 1.11
[2023-09-04 13:59] LABS: PARTIAL THROMBOPLASTIN TIME 31.9 SECONDS (24.8-34.2)
[2023-09-04 14:11] LABS: ALBUMIN 3.6 G/DL (3.2-5.2); ALKALINE PHOSPHATASE 148 U/L (46-116); ALT/SGPT 12 U/L (7.0-40); AST/SGOT 12 U/L (<34); BILIRUBIN,DIRECT 0.2 MG/DL (<0.4); BILIRUBIN,TOTAL 0.6 MG/DL (0.3-1.2); BLOOD UREA NITROGEN 22 MG/DL (9-23); CALCIUM LEVEL 9.9 MG/DL (8.3-10.6); CARBON DIOXIDE LEVEL 25 MMOL/L (20-31); CHLORIDE LEVEL 103 MMOL/L (98-107); CREATININE FOR GFR 0.84 MG/DL (0.70-1.30); GLOMERULAR FILTRATION RATE > 60.0 (>42); GLUCOSE, FASTING 178 MG/DL (74-106); POTASSIUM SERUM 3.8 MMOL/L (3.5-5.1); SODIUM LEVEL 138 MMOL/L (136-145); TOTAL PROTEIN 7.3 G/DL (5.7-8.2)
[2023-09-04] MEDS ORDERED: TRUL10IN SC (14:11)
[2023-09-04] MEDS ORDERED: BASA100I SC (14:11)
[2023-09-04 14:13] LABS: ERYTHROCYTE SEDIMENTATION RATE 105 mm/hr (0-20)
[2023-09-04] MEDS ORDERED: VANCOMYCIN HCL 2,000 MG in D5W 500 ML IV ONE (14:20)
[2023-09-04] MEDS ORDERED: HOME MED LIST COMPLETE! XX SCH (14:20)
[2023-09-04] MEDS ORDERED: VANCOMYCIN HCL 1,000 MG, VIAL MATE ADAPTER 1 EACH in D5W 250 ML IV ONE ×2 (15:00→16:00)
[2023-09-04] MEDS ORDERED: GLUCAGON INJ 1MG VIAL SC PRN (15:55)
[2023-09-04] MEDS ORDERED: DEXTROSE 50% 50ML SYRINGE IV PRN (15:55)
[2023-09-04] MEDS ORDERED: GLUCOSE 4GM CHEW TABLET PO PRN (15:55)
[2023-09-04] MEDS ORDERED: IPRATROPIUM 0.5MG/ALBUTEROL 2.5MG INH SOL UD 3ML (DUONEB) NEB PRN (16:05)
[2023-09-04 16:50] VITALS: BP 137/75; TEMP 97.9; O2SAT 96
[2023-09-04 16:59] LABS: BLOOD UREA NITROGEN 21 MG/DL (9-23); CALCIUM LEVEL 9.4 MG/DL (8.3-10.6); CARBON DIOXIDE LEVEL 28 MMOL/L (20-31); CHLORIDE LEVEL 101 MMOL/L (98-107); CREATININE FOR GFR 0.83 MG/DL (0.70-1.30); GLOMERULAR FILTRATION RATE > 60.0 (>42); GLUCOSE, FASTING 165 MG/DL (74-106); POTASSIUM SERUM 3.8 MMOL/L (3.5-5.1); SODIUM LEVEL 137 MMOL/L (136-145)
[2023-09-04 17:06] LABS: PROCALCITONIN 0.07 ng/ml
[2023-09-04] MEDS: CEFEPIME HCL 2 GM in D5W MINI-BAG PLUS 50 ML IV SCH (17:16)
[2023-09-04] MEDS: GABAPENTIN 300 MG CAP PO SCH ×2 (17:16→21:20)
[2023-09-04] MEDS: INSULIN LISPRO (NovoLOG) PER UNIT SC SCH ×2 (17:17→21:00)
[2023-09-04 21:01] VITALS: BP 125/77; TEMP 98.1; O2SAT 95
[2023-09-04] MEDS: VANCOMYCIN HCL 1,000 MG, VIAL MATE ADAPTER 1 EACH in NS 250 ML IV SCH (21:20)
[2023-09-04 22:26] LABS: BLOOD UREA NITROGEN 23 MG/DL (9-23); CALCIUM LEVEL 9.1 MG/DL (8.3-10.6); CARBON DIOXIDE LEVEL 28 MMOL/L (20-31); CHLORIDE LEVEL 101 MMOL/L (98-107); CREATININE FOR GFR 0.88 MG/DL (0.70-1.30); GLOMERULAR FILTRATION RATE > 60.0 (>42); GLUCOSE, FASTING 131 MG/DL (74-106); POTASSIUM SERUM 3.9 MMOL/L (3.5-5.1); SODIUM LEVEL 137 MMOL/L (136-145)
[2023-09-05 03:16] VITALS: O2SAT 93
[2023-09-05 04:13] LABS: BASO % 0.3 % (0.0-1.0); EOS # 0.2 10^3/uL (0.0-0.5); EOS % 2.5 % (0.0-3.0); HEMATOCRIT 40.4 % (42.0-52.0); HEMOGLOBIN 13.5 g/dl (13.5-17.5); LYMPH % 12.2 % (24.0-44.0); MEAN CORPUSCULAR HEMOGLOBIN 29.5 pg (27.0-33.0); MEAN CORPUSCULAR HGB CONC 33.4 g/dl (32.0-36.5); MEAN CORPUSCULAR VOLUME 88.2 fl (80.0-96.0); MONO # 0.6 10^3/uL (0.0-0.8); MONO % 7.9 % (2.0-8.0); NEUTROPHILS # 6.1 10^3/uL (1.5-8.5); NEUTROPHILS % 76.8 % (36.0-66.0); PLATELET COUNT, AUTOMATED 238 10^3/uL (150-450); RED BLOOD COUNT 4.58 10^6/uL (4.30-6.10)
[2023-09-05 04:36] LABS: BLOOD UREA NITROGEN 21 MG/DL (9-23); CALCIUM LEVEL 9.4 MG/DL (8.3-10.6); CARBON DIOXIDE LEVEL 28 MMOL/L (20-31); CHLORIDE LEVEL 103 MMOL/L (98-107); CREATININE FOR GFR 0.86 MG/DL (0.70-1.30); GLOMERULAR FILTRATION RATE > 60.0 (>42); GLUCOSE, FASTING 92 MG/DL (74-106); POTASSIUM SERUM 3.7 MMOL/L (3.5-5.1); SODIUM LEVEL 138 MMOL/L (136-145)
[2023-09-05] MEDS: CEFEPIME HCL 2 GM in D5W MINI-BAG PLUS 50 ML IV SCH ×2 (05:14→16:37)
[2023-09-05 05:20] VITALS: BP 132/64; TEMP 97.9; O2SAT 93
[2023-09-05] MEDS: VANCOMYCIN HCL 1,000 MG, VIAL MATE ADAPTER 1 EACH in NS 250 ML IV SCH ×3 (06:15→23:32)
[2023-09-05] MEDS: INSULIN LISPRO (NovoLOG) PER UNIT SC SCH ×4 (07:08→21:00)
[2023-09-05] MEDS: LEVEMIR (INSULIN DETEMIR) 1 UNITS/0.01ML SC SCH (08:41)
[2023-09-05] MEDS: buPROPion **XL** TABLET 150MG (WELLBUTRIN XL) PO SCH (08:58)
[2023-09-05] MEDS: TORSEMIDE (DEMADEX) 50 MG PER 1/2 TAB PO SCH (08:58)
[2023-09-05] MEDS: allopurinoL 300 MG TAB PO SCH (08:58)
[2023-09-05] MEDS: GABAPENTIN 300 MG CAP PO SCH ×3 (08:58→20:00)
[2023-09-05] MEDS: SPIRONOLACTONE 25 MG TAB PO SCH (08:59)
[2023-09-05] MEDS: ATORVASTATIN 20 MG TAB PO SCH (08:59)
[2023-09-05] MEDS: FLUoxetine 20MG CAP PO SCH (08:59)
[2023-09-05] MEDS: ASPIRIN 81MG ENTERIC TABLET PO SCH (08:59)
[2023-09-05] MEDS ORDERED: FUROSEMIDE 40 MG TAB PO SCH (09:00)
[2023-09-05 10:39] LABS: BLOOD UREA NITROGEN 21 MG/DL (9-23); CARBON DIOXIDE LEVEL 25 MMOL/L (20-31); CHLORIDE LEVEL 103 MMOL/L (98-107); CREATININE FOR GFR 0.83 MG/DL (0.70-1.30); GLOMERULAR FILTRATION RATE > 60.0 (>42); GLUCOSE, FASTING 122 MG/DL (74-106); POTASSIUM SERUM 3.8 MMOL/L (3.5-5.1); SODIUM LEVEL 139 MMOL/L (136-145)
[2023-09-05 14:00] VITALS: BP 124/74; TEMP 97.9; O2SAT 90
[2023-09-05 16:20] LABS: BLOOD UREA NITROGEN 21 MG/DL (9-23); CALCIUM LEVEL 9.1 MG/DL (8.3-10.6); CARBON DIOXIDE LEVEL 27 MMOL/L (20-31); CHLORIDE LEVEL 101 MMOL/L (98-107); GLOMERULAR FILTRATION RATE > 60.0 (>42); GLUCOSE, FASTING 167 MG/DL (74-106); POTASSIUM SERUM 3.5 MMOL/L (3.5-5.1); SODIUM LEVEL 137 MMOL/L (136-145)
[2023-09-05 21:14] VITALS: BP 118/68; TEMP 97.9; O2SAT 94
[2023-09-06] MEDS: CEFEPIME HCL 2 GM in D5W MINI-BAG PLUS 50 ML IV SCH ×2 (04:00→17:17)
[2023-09-06 05:49] VITALS: BP 119/69; TEMP 97.5; O2SAT 95
[2023-09-06 06:23] LABS: BASO % 0.3 % (0.0-1.0); EOS # 0.1 10^3/uL (0.0-0.5); EOS % 2.2 % (0.0-3.0); HEMATOCRIT 40.1 % (42.0-52.0); HEMOGLOBIN 13.3 g/dl (13.5-17.5); LYMPH # 0.7 10^3/uL (1.5-5.0); LYMPH % 12.2 % (24.0-44.0); MEAN CORPUSCULAR HEMOGLOBIN 29.2 pg (27.0-33.0); MEAN CORPUSCULAR HGB CONC 33.2 g/dl (32.0-36.5); MEAN CORPUSCULAR VOLUME 88.1 fl (80.0-96.0); MONO # 0.5 10^3/uL (0.0-0.8); MONO % 8.9 % (2.0-8.0); NEUTROPHILS # 4.4 10^3/uL (1.5-8.5); NEUTROPHILS % 76.1 % (36.0-66.0); PLATELET COUNT, AUTOMATED 229 10^3/uL (150-450); RED BLOOD COUNT 4.55 10^6/uL (4.30-6.10); WHITE BLOOD COUNT 5.8 10^3/uL (4.0-10.0)
[2023-09-06 06:45] LABS: BLOOD UREA NITROGEN 23 MG/DL (9-23); CARBON DIOXIDE LEVEL 27 MMOL/L (20-31); CHLORIDE LEVEL 102 MMOL/L (98-107); CREATININE FOR GFR 0.83 MG/DL (0.70-1.30); GLOMERULAR FILTRATION RATE > 60.0 (>42); GLUCOSE, FASTING 132 MG/DL (74-106); POTASSIUM SERUM 3.7 MMOL/L (3.5-5.1); SODIUM LEVEL 138 MMOL/L (136-145)
[2023-09-06 06:46] LABS: ERYTHROCYTE SEDIMENTATION RATE 96 mm/hr (0-20)
[2023-09-06] MEDS: LEVEMIR (INSULIN DETEMIR) 1 UNITS/0.01ML SC SCH (09:00)
[2023-09-06] MEDS: GABAPENTIN 300 MG CAP PO SCH ×3 (09:30→20:03)
[2023-09-06] MEDS: FLUoxetine 20MG CAP PO SCH (09:30)
[2023-09-06] MEDS: SPIRONOLACTONE 25 MG TAB PO SCH (09:30)
[2023-09-06] MEDS: ATORVASTATIN 20 MG TAB PO SCH (09:30)
[2023-09-06] MEDS: ASPIRIN 81MG ENTERIC TABLET PO SCH (09:30)
[2023-09-06] MEDS: TORSEMIDE (DEMADEX) 50 MG PER 1/2 TAB PO SCH (09:30)
[2023-09-06] MEDS: ENOXAPARIN 40MG/0.4ML SYRINGE (J1650 PER 10MG) SC SCH (09:31)
[2023-09-06] MEDS: INSULIN LISPRO (NovoLOG) PER UNIT SC SCH ×4 (09:31→19:56)
[2023-09-06] MEDS: allopurinoL 300 MG TAB PO SCH (09:31)
[2023-09-06] MEDS: buPROPion **XL** TABLET 150MG (WELLBUTRIN XL) PO SCH (09:31)
[2023-09-06] MEDS: MIRALAX *UNIT DOSE* 17GM PACKET PO SCH ×2 (11:45→20:03)
[2023-09-06] MEDS: VANCOMYCIN HCL 1,000 MG, VIAL MATE ADAPTER 1 EACH in NS 250 ML IV SCH ×2 (11:46→23:30)
[2023-09-06] MEDS: ACETAMINOPHEN TAB 650MG DOSE (2X325MG) PO PRN ×2 (11:50→20:03)
[2023-09-06 14:00] VITALS: BP 134/77; TEMP 97.7; O2SAT 96
[2023-09-06 20:15] VITALS: BP 119/68; TEMP 98.1; O2SAT 91
[2023-09-07] MEDS: CEFEPIME HCL 2 GM in D5W MINI-BAG PLUS 50 ML IV SCH (04:00)
[2023-09-07 05:33] VITALS: BP 125/71; TEMP 97.7; O2SAT 93
[2023-09-07 06:02] LABS: BASO % 0.3 % (0.0-1.0); EOS # 0.2 10^3/uL (0.0-0.5); EOS % 3.2 % (0.0-3.0); HEMATOCRIT 40.5 % (42.0-52.0); HEMOGLOBIN 13.4 g/dl (13.5-17.5); LYMPH # 0.8 10^3/uL (1.5-5.0); LYMPH % 13.1 % (24.0-44.0); MEAN CORPUSCULAR HEMOGLOBIN 29.3 pg (27.0-33.0); MEAN CORPUSCULAR HGB CONC 33.1 g/dl (32.0-36.5); MEAN CORPUSCULAR VOLUME 88.4 fl (80.0-96.0); MONO # 0.5 10^3/uL (0.0-0.8); MONO % 8.8 % (2.0-8.0); NEUTROPHILS # 4.5 10^3/uL (1.5-8.5); NEUTROPHILS % 74.3 % (36.0-66.0); PLATELET COUNT, AUTOMATED 234 10^3/uL (150-450); RED BLOOD COUNT 4.58 10^6/uL (4.30-6.10)
[2023-09-07 06:21] LABS: BLOOD UREA NITROGEN 26 MG/DL (9-23); CALCIUM LEVEL 9.2 MG/DL (8.3-10.6); CARBON DIOXIDE LEVEL 28 MMOL/L (20-31); CHLORIDE LEVEL 102 MMOL/L (98-107); CREATININE FOR GFR 0.82 MG/DL (0.70-1.30); GLOMERULAR FILTRATION RATE > 60.0 (>42); GLUCOSE, FASTING 154 MG/DL (74-106); POTASSIUM SERUM 3.7 MMOL/L (3.5-5.1); SODIUM LEVEL 136 MMOL/L (136-145)
[2023-09-07] MEDS: ASPIRIN 81MG ENTERIC TABLET PO SCH (08:43)
[2023-09-07] MEDS: buPROPion **XL** TABLET 150MG (WELLBUTRIN XL) PO SCH (08:43)
[2023-09-07] MEDS: allopurinoL 300 MG TAB PO SCH (08:43)
[2023-09-07] MEDS: GABAPENTIN 300 MG CAP PO SCH (08:44)
[2023-09-07] MEDS: FLUoxetine 20MG CAP PO SCH (08:44)
[2023-09-07] MEDS: ATORVASTATIN 20 MG TAB PO SCH (08:44)
[2023-09-07] MEDS: SPIRONOLACTONE 25 MG TAB PO SCH (08:44)
[2023-09-07] MEDS: TORSEMIDE (DEMADEX) 50 MG PER 1/2 TAB PO SCH (08:44)
[2023-09-07] MEDS: ENOXAPARIN 40MG/0.4ML SYRINGE (J1650 PER 10MG) SC SCH (08:45)
[2023-09-07] MEDS: INSULIN LISPRO (NovoLOG) PER UNIT SC SCH ×2 (08:45→12:15)
[2023-09-07] MEDS: ACETAMINOPHEN TAB 650MG DOSE (2X325MG) PO PRN (08:46)
[2023-09-07] MEDS: MIRALAX *UNIT DOSE* 17GM PACKET PO SCH (08:52)
[2023-09-07] MEDS ORDERED: LEVEMIR (INSULIN DETEMIR) 1 UNITS/0.01ML SC SCH (09:00)
[2023-09-07] MEDS ORDERED: MOXI1TAB PO (10:44)
[2023-09-07] MEDS ORDERED: DOXY-444 PO (10:44)
[2023-09-07] MEDS ORDERED: METO25TA PO (11:09)
[2023-09-07] MEDS: VANCOMYCIN HCL 1,000 MG, VIAL MATE ADAPTER 1 EACH in NS 250 ML IV SCH ×2 (12:00→12:15)
== END 2023-09-07 14:32 | disposition home health service (06) | DRG 623 ==
LOC: M ED 12:36 → M ED INP 15:51 → M MSPAV 17:04
PROVIDERS: ADMIT Student in an Organized Health Care Education/Training Program; ATTEND Student in an Organized Health Care Education/Training Program
PROC: 0JBR0ZZ Excision of Left Foot Subcutaneous Tissue and Fascia, Open Approach (ICD-10-PCS; principal; 2023-09-05)
DX: E11.621 Type 2 diabetes mellitus with foot ulcer (principal); L03.116 Cellulitis of left lower limb; I13.0 Hypertensive heart and chronic kidney disease with heart failure and stage 1 through stage 4 chronic kidney disease, or unspecified chronic kidney disease; L97.528 Non-pressure chronic ulcer of other part of left foot with other specified severity; A52.16 Charcot's arthropathy (tabetic); E66.2 Morbid (severe) obesity with alveolar hypoventilation; K59.00 Constipation, unspecified; E11.610 Type 2 diabetes mellitus with diabetic neuropathic arthropathy; I50.9 Heart failure, unspecified; N18.31 Chronic kidney disease, stage 3a; E78.5 Hyperlipidemia, unspecified; F32.A Depression, unspecified; E11.22 Type 2 diabetes mellitus with diabetic chronic kidney disease; J45.20 Mild intermittent asthma, uncomplicated; F41.9 Anxiety disorder, unspecified; M10.9 Gout, unspecified; E11.42 Type 2 diabetes mellitus with diabetic polyneuropathy; Z85.46 Personal history of malignant neoplasm of prostate; Z79.82 Long term (current) use of aspirin; Z79.4 Long term (current) use of insulin; Z79.899 Other long term (current) drug therapy; Z88.0 Allergy status to penicillin; Z88.1 Allergy status to other antibiotic agents; Z88.8 Allergy status to other drugs, medicaments and biological substances

== ENCOUNTER → 2023-09-29 | Outpatient (REF) | payer MEDICARE ==
[~2023-09-29] MED LIST changes: +BASA100I SC; +DOXY-444 PO; +METO25TA PO; +MOXI1TAB PO; +TRUL10IN SC
[2023-09-29 16:13] LABS: HEMATOCRIT 42.7 % (42.0-52.0); HEMOGLOBIN 14.2 g/dl (13.5-17.5); MEAN CORPUSCULAR HEMOGLOBIN 29.3 pg (27.0-33.0); MEAN CORPUSCULAR HGB CONC 33.3 g/dl (32.0-36.5); PLATELET COUNT, AUTOMATED 217 10^3/uL (150-450); RED BLOOD COUNT 4.85 10^6/uL (4.30-6.10); WHITE BLOOD COUNT 9.3 10^3/uL (4.0-10.0)
[2023-09-29 16:33] LABS: HEMOGLOBIN A1c 6.9 % (4.0-6.0)
[2023-09-29 16:41] LABS: CREATININE, URINE 162.3 MG/DL; MAU/CREAT RATIO 27.7 MCG/MG (0.0-30.0)
[2023-09-29 16:44] LABS: ALBUMIN 3.7 G/DL (3.2-5.2); ALKALINE PHOSPHATASE 135 U/L (46-116); ALT/SGPT 18 U/L (7.0-40); AST/SGOT 14 U/L (<34); BILIRUBIN,TOTAL 0.6 MG/DL (0.3-1.2); BLOOD UREA NITROGEN 23 MG/DL (9-23); CALCIUM LEVEL 10.2 MG/DL (8.3-10.6); CARBON DIOXIDE LEVEL 27 MMOL/L (20-31); CHLORIDE LEVEL 102 MMOL/L (98-107); CHOLESTEROL LEVEL 201 MG/DL (<200); CHOLESTEROL RISK RATIO 4.23 (<5); CREATININE FOR GFR 0.93 MG/DL (0.70-1.30); FREE T4 1.24 NG/DL (0.89-1.76); GLOMERULAR FILTRATION RATE > 60.0 (>42); GLUCOSE, FASTING 84 MG/DL (74-106); HDL CHOLESTEROL 47.5 MG/DL (>40); LDL CHOLESTEROL 90.9 MG/DL (<100); NON-HDL-C 153.5 MG/DL; POTASSIUM SERUM 4.3 MMOL/L (3.5-5.1); SODIUM LEVEL 135 MMOL/L (136-145); THYROID STIMULATING HORMONE 1.223 uIU/ML (0.55-4.78); TOTAL PROTEIN 7.2 G/DL (5.7-8.2); TRIGLYCERIDES LEVEL 313 MG/DL (<150)
== END ==
LOC: M SFHCADAM 12:28
PROVIDERS: ATTEND Physician Assistant
DX: I10 Essential (primary) hypertension (principal); E11.22 Type 2 diabetes mellitus with diabetic chronic kidney disease

== ENCOUNTER → 2023-12-27 | Outpatient (REF) | payer MEDICARE ==
[~2023-12-27] MED LIST changes: +DOXY-440 PO; -DOXY-444 PO
[2023-12-27 17:57] LABS: ALBUMIN 3.6 G/DL (3.2-5.2); ALKALINE PHOSPHATASE 114 U/L (46-116); ALT/SGPT 16 U/L (7.0-40); AST/SGOT 18 U/L (<34); BILIRUBIN,TOTAL 0.7 MG/DL (0.3-1.2); BLOOD UREA NITROGEN 18 MG/DL (9-23); CALCIUM LEVEL 10.4 MG/DL (8.3-10.6); CARBON DIOXIDE LEVEL 27 MMOL/L (20-31); CHLORIDE LEVEL 107 MMOL/L (98-107); CREATININE FOR GFR 0.89 MG/DL (0.70-1.30); GLOMERULAR FILTRATION RATE > 60.0 (>42); GLUCOSE, FASTING 78 MG/DL (74-106); POTASSIUM SERUM 4.5 MMOL/L (3.5-5.1); SODIUM LEVEL 141 MMOL/L (136-145); TOTAL PROTEIN 6.7 G/DL (5.7-8.2)
[2023-12-27 17:58] LABS: BASO % 0.1 % (0.0-1.0); EOS # 0.1 10^3/uL (0.0-0.5); EOS % 1.2 % (0.0-3.0); HEMATOCRIT 40.3 % (42.0-52.0); HEMOGLOBIN 12.9 g/dl (13.5-17.5); LYMPH # 0.8 10^3/uL (1.5-5.0); LYMPH % 9.2 % (24.0-44.0); MEAN CORPUSCULAR HEMOGLOBIN 30.9 pg (27.0-33.0); MEAN CORPUSCULAR VOLUME 96.6 fl (80.0-96.0); MONO # 0.5 10^3/uL (0.0-0.8); MONO % 6.3 % (2.0-8.0); NEUTROPHILS # 6.9 10^3/uL (1.5-8.5); NEUTROPHILS % 82.8 % (36.0-66.0); PLATELET COUNT, AUTOMATED 245 10^3/uL (150-450); RED BLOOD COUNT 4.17 10^6/uL (4.30-6.10); WHITE BLOOD COUNT 8.4 10^3/uL (4.0-10.0)
[2023-12-27 18:19] LABS: HEMOGLOBIN A1c 5.8 % (4.0-6.0)
== END ==
LOC: M SFHCADAM 14:30
PROVIDERS: ATTEND Physician Assistant
DX: E11.22 Type 2 diabetes mellitus with diabetic chronic kidney disease (principal)

== ENCOUNTER → 2024-02-02 | Outpatient (REF) | payer MEDICARE ==
[2024-02-02 13:02] LABS: BASO % 0.3 % (0.0-1.0); EOS # 0.1 10^3/uL (0.0-0.5); EOS % 1.1 % (0.0-3.0); HEMATOCRIT 37.8 % (42.0-52.0); HEMOGLOBIN 12.5 g/dl (13.5-17.5); LYMPH # 1.1 10^3/uL (1.5-5.0); LYMPH % 13.4 % (24.0-44.0); MEAN CORPUSCULAR HEMOGLOBIN 31.2 pg (27.0-33.0); MEAN CORPUSCULAR HGB CONC 33.1 g/dl (32.0-36.5); MEAN CORPUSCULAR VOLUME 94.3 fl (80.0-96.0); MONO # 0.5 10^3/uL (0.0-0.8); MONO % 6.6 % (2.0-8.0); NEUTROPHILS # 6.2 10^3/uL (1.5-8.5); NEUTROPHILS % 78.2 % (36.0-66.0); PLATELET COUNT, AUTOMATED 252 10^3/uL (150-450); RED BLOOD COUNT 4.01 10^6/uL (4.30-6.10); WHITE BLOOD COUNT 7.9 10^3/uL (4.0-10.0)
[2024-02-02 13:33] LABS: PROSTATIC SPECIFIC AG MONITOR 0.11 NG/ML (< 4.00)
[2024-02-02 13:36] LABS: BLOOD UREA NITROGEN 38 MG/DL (9-23); CARBON DIOXIDE LEVEL 29 MMOL/L (20-31); CHLORIDE LEVEL 98 MMOL/L (98-107); CREATININE FOR GFR 1.07 MG/DL (0.70-1.30); GLOMERULAR FILTRATION RATE > 60.0 (>42); GLUCOSE, FASTING 94 MG/DL (74-106); IRON (FE) 51 UG/DL (65-175); PERCENT SATURATION 16.9 % (19.7-50.0); POTASSIUM SERUM 4.2 MMOL/L (3.5-5.1); SODIUM LEVEL 134 MMOL/L (136-145); TOTAL IRON BINDING CAPACITY 302 UG/DL (250-425)
[2024-02-02 13:37] LABS: FERRITIN 224.8 NG/ML (10.5-307.3)
[2024-02-02 13:38] LABS: FOLATE 13.5 NG/ML (>5.4); VITAMIN B12 LEVEL 617 PG/ML (211-911)
== END ==
LOC: M SFHCADAM 12:28
PROVIDERS: ATTEND Family Medicine
DX: D64.9 Anemia, unspecified (principal); Z85.46 Personal history of malignant neoplasm of prostate

== ENCOUNTER → 2024-03-21 | Outpatient (REF) | payer MEDICARE ==
[2024-03-21 13:38] LABS: HEMATOCRIT 47.5 % (42.0-52.0); HEMOGLOBIN 15.6 g/dl (13.5-17.5); MEAN CORPUSCULAR HGB CONC 32.8 g/dl (32.0-36.5); MEAN CORPUSCULAR VOLUME 94.4 fl (80.0-96.0); PLATELET COUNT, AUTOMATED 241 10^3/uL (150-450); RED BLOOD COUNT 5.03 10^6/uL (4.30-6.10); WHITE BLOOD COUNT 8.7 10^3/uL (4.0-10.0)
[2024-03-21 13:46] LABS: ALBUMIN 3.9 G/DL (3.2-5.2); ALKALINE PHOSPHATASE 124 U/L (46-116); ALT/SGPT 32 U/L (7.0-40); AST/SGOT 12 U/L (<34); BILIRUBIN,TOTAL 0.6 MG/DL (0.3-1.2); BLOOD UREA NITROGEN 21 MG/DL (9-23); CALCIUM LEVEL 10.7 MG/DL (8.3-10.6); CARBON DIOXIDE LEVEL 25 MMOL/L (20-31); CHLORIDE LEVEL 108 MMOL/L (98-107); CREATININE FOR GFR 0.89 MG/DL (0.70-1.30); GLOMERULAR FILTRATION RATE > 60.0 (>42); GLUCOSE, FASTING 86 MG/DL (74-106); POTASSIUM SERUM 5.1 MMOL/L (3.5-5.1); SODIUM LEVEL 138 MMOL/L (136-145); TOTAL PROTEIN 6.7 G/DL (5.7-8.2)
[2024-03-21 13:47] LABS: FREE T4 1.35 NG/DL (0.89-1.76); THYROID STIMULATING HORMONE 0.823 uIU/ML (0.55-4.78)
[2024-03-21 14:09] LABS: HEMOGLOBIN A1c 4.8 % (4.0-6.0)
== END ==
LOC: M SFHCADAM 09:50
PROVIDERS: ATTEND Physician Assistant
DX: E11.22 Type 2 diabetes mellitus with diabetic chronic kidney disease (principal); I50.32 Chronic diastolic (congestive) heart failure; I95.9 Hypotension, unspecified; R63.4 Abnormal weight loss

== ENCOUNTER → 2024-06-19 | Outpatient (REF) | payer MEDICARE ==
[2024-06-19 15:03] LABS: ALBUMIN 3.8 G/DL (3.2-5.2); ALKALINE PHOSPHATASE 94 U/L (46-116); ALT/SGPT 28 U/L (7.0-40); AST/SGOT 14 U/L (<34); BILIRUBIN,TOTAL 0.6 MG/DL (0.3-1.2); BLOOD UREA NITROGEN 29 MG/DL (9-23); CALCIUM LEVEL 10.6 MG/DL (8.3-10.6); CARBON DIOXIDE LEVEL 29 MMOL/L (20-31); CHLORIDE LEVEL 104 MMOL/L (98-107); CREATININE FOR GFR 0.85 MG/DL (0.70-1.30); GLOMERULAR FILTRATION RATE > 60.0 (>42); GLUCOSE, FASTING 106 MG/DL (74-106); POTASSIUM SERUM 4.4 MMOL/L (3.5-5.1); SODIUM LEVEL 138 MMOL/L (136-145); TOTAL PROTEIN 7.1 G/DL (5.7-8.2)
[2024-06-19 15:05] LABS: BASO % 0.3 % (0.0-1.0); EOS # 0.1 10^3/uL (0.0-0.5); EOS % 1.8 % (0.0-3.0); HEMATOCRIT 51.2 % (42.0-52.0); HEMOGLOBIN 16.7 g/dl (13.5-17.5); LYMPH % 13.6 % (24.0-44.0); MEAN CORPUSCULAR HEMOGLOBIN 30.3 pg (27.0-33.0); MEAN CORPUSCULAR HGB CONC 32.6 g/dl (32.0-36.5); MEAN CORPUSCULAR VOLUME 92.8 fl (80.0-96.0); MONO # 0.6 10^3/uL (0.0-0.8); MONO % 7.7 % (2.0-8.0); NEUTROPHILS # 5.8 10^3/uL (1.5-8.5); NEUTROPHILS % 76.1 % (36.0-66.0); PLATELET COUNT, AUTOMATED 210 10^3/uL (150-450); RED BLOOD COUNT 5.52 10^6/uL (4.30-6.10); WHITE BLOOD COUNT 7.6 10^3/uL (4.0-10.0)
[2024-06-19 15:12] LABS: HEMOGLOBIN A1c 5.8 % (4.0-6.0)
== END ==
LOC: M SFHCADAM 08:53
PROVIDERS: ATTEND Physician Assistant
DX: Z89.512 Acquired absence of left leg below knee (principal); E08.40 Diabetes mellitus due to underlying condition with diabetic neuropathy, unspecified; I10 Essential (primary) hypertension

== ENCOUNTER → 2024-08-12 | Outpatient (REF) | payer MEDICARE ==
[~2024-08-12] MED LIST changes: -ADV100INH INH; +ADVA1AER8 INH; +ATOR-398 PO; -LIPI80TA PO; -POTA10808 PO; +POTA10809 PO
[2024-08-12 19:17] LABS: BASO % 0.2 % (0.0-1.0); EOS # 0.2 10^3/uL (0.0-0.5); EOS % 2.1 % (0.0-3.0); HEMATOCRIT 50.9 % (42.0-52.0); HEMOGLOBIN 16.9 g/dl (13.5-17.5); LYMPH # 1.1 10^3/uL (1.5-5.0); MEAN CORPUSCULAR HEMOGLOBIN 30.3 pg (27.0-33.0); MEAN CORPUSCULAR HGB CONC 33.2 g/dl (32.0-36.5); MEAN CORPUSCULAR VOLUME 91.2 fl (80.0-96.0); MONO # 0.7 10^3/uL (0.0-0.8); MONO % 8.1 % (2.0-8.0); NEUTROPHILS # 6.6 10^3/uL (1.5-8.5); NEUTROPHILS % 76.4 % (36.0-66.0); PLATELET COUNT, AUTOMATED 231 10^3/uL (150-450); RED BLOOD COUNT 5.58 10^6/uL (4.30-6.10); WHITE BLOOD COUNT 8.7 10^3/uL (4.0-10.0)
[2024-08-12 19:43] LABS: ALBUMIN 3.5 G/DL (3.2-5.2); ALKALINE PHOSPHATASE 85 U/L (40-129); ALT/SGPT 31 U/L (7.0-40); AST/SGOT 20 U/L (<34); BILIRUBIN,TOTAL 0.5 MG/DL (0.3-1.2); BLOOD UREA NITROGEN 34 MG/DL (9-23); CALCIUM LEVEL 10.4 MG/DL (8.3-10.6); CARBON DIOXIDE LEVEL 25 MMOL/L (20-31); CHLORIDE LEVEL 105 MMOL/L (98-107); CREATININE FOR GFR 0.98 MG/DL (0.70-1.30); GLOMERULAR FILTRATION RATE > 60.0 (>42); GLUCOSE, FASTING 87 MG/DL (74-106); MAGNESIUM LEVEL 2.1 MG/DL (1.8-2.4); POTASSIUM SERUM 4.8 MMOL/L (3.5-5.1); SODIUM LEVEL 140 MMOL/L (136-145); TOTAL PROTEIN 7.1 G/DL (5.7-8.2)
== END ==
LOC: M LABDRWAD 17:45
PROVIDERS: ATTEND Internal Medicine Cardiovascular Disease
DX: I50.32 Chronic diastolic (congestive) heart failure (principal); I87.2 Venous insufficiency (chronic) (peripheral); I49.3 Ventricular premature depolarization

== ENCOUNTER → 2024-08-13 | Outpatient (CLI) | payer MEDICARE | LOC: M EKG 13:15 | PROVIDERS: ATTEND Internal Medicine Cardiovascular Disease | DX: I49.3 Ventricular premature depolarization (principal) ==

== ENCOUNTER → 2024-08-15 | Outpatient (REF) | payer MEDICARE ==
[2024-08-15 17:46] LABS: APPEARANCE, URINE TURBID (CLEAR); BACTERIA, URINE AUTO 2+ (NEGATIVE); BILIRUBIN, URINE AUTO NEGATIVE (NEGATIVE); BLOOD, URINE BLOOD 2+ (NEGATIVE); COLOR, URINE AMBER (YELLOW); GLUCOSE, URINE (UA) AUTO 3+ mg/dL (NEGATIVE); KETONE, URINE AUTO NEGATIVE (NEGATIVE); LEUKOCYTE ESTERASE, URINE AUTO 3+ (NEGATIVE); MUCUS, URINE SMALL (NEGATIVE); NITRITE, URINE AUTO POSITIVE (NEGATIVE); PROTEIN, URINE AUTO 2+ mg/dL (NEGATIVE); RBC, URINE AUTO 48 /HPF (0-3); SPECIFIC GRAVITY URINE AUTO 1.023 (1.002-1.035); SQUAMOUS EPITHELIAL CELL UR AU 1 /HPF (0-6); UROBILINOGEN, URINE AUTO 0.2 mg/dL (0.0-2.0); WBC, URINE AUTO TNTC /HPF (0-3)
== END ==
LOC: M SFHCADAM 11:09
PROVIDERS: ATTEND Physician Assistant
DX: N39.0 Urinary tract infection, site not specified (principal)

== ENCOUNTER → 2024-08-29 | Outpatient (CLI) | payer MEDICARE | LOC: M CARPUL 07:59 | PROVIDERS: ATTEND Internal Medicine Cardiovascular Disease | DX: I49.3 Ventricular premature depolarization (principal); I50.32 Chronic diastolic (congestive) heart failure; I71.21 Aneurysm of the ascending aorta, without rupture ==

== ENCOUNTER → 2024-09-26 | Outpatient (REF) | payer MEDICARE ==
[~2024-09-26] MED LIST changes: -ALIG4CAP PO; +ALIG4CAP3 PO
[2024-09-26 15:09] LABS: BLOOD UREA NITROGEN 20 MG/DL (9-23); CALCIUM LEVEL 10.4 MG/DL (8.3-10.6); CARBON DIOXIDE LEVEL 28 MMOL/L (20-31); CHLORIDE LEVEL 107 MMOL/L (98-107); CHOLESTEROL LEVEL 331 MG/DL (<200); CHOLESTEROL RISK RATIO 6.16 (<5); CREATININE FOR GFR 0.86 MG/DL (0.70-1.30); GLOMERULAR FILTRATION RATE > 60.0 (>42); GLUCOSE, FASTING 59 MG/DL (74-106); HDL CHOLESTEROL 53.7 MG/DL (>40); NON-HDL-C 277.3 MG/DL; POTASSIUM SERUM 4.4 MMOL/L (3.5-5.1); SODIUM LEVEL 140 MMOL/L (136-145); TRIGLYCERIDES LEVEL 439 MG/DL (<150)
[2024-09-26 16:01] LABS: HEMOGLOBIN A1c 5.6 % (4.0-6.0)
== END ==
LOC: M SFHCADAM 10:47
PROVIDERS: ATTEND Physician Assistant
DX: E11.22 Type 2 diabetes mellitus with diabetic chronic kidney disease (principal); I10 Essential (primary) hypertension

== ENCOUNTER → 2024-12-25 | Outpatient (REF) | payer MEDICARE ==
[~2024-12-25] MED LIST changes: +GLIP-320 PO; -GLIP10TA18 PO
[2024-12-25 15:15] LABS: ALBUMIN 3.6 G/DL (3.2-5.2); ALKALINE PHOSPHATASE 79 U/L (40-129); ALT/SGPT 32 U/L (7.0-40); AST/SGOT 22 U/L (<34); BILIRUBIN,TOTAL 0.5 MG/DL (0.3-1.2); BLOOD UREA NITROGEN 21 MG/DL (9-23); CALCIUM LEVEL 9.8 MG/DL (8.3-10.6); CARBON DIOXIDE LEVEL 28 MMOL/L (20-31); CHLORIDE LEVEL 101 MMOL/L (98-107); CHOLESTEROL LEVEL 324 MG/DL (<200); CHOLESTEROL RISK RATIO 5.79 (<5); GLOMERULAR FILTRATION RATE > 90.0 (>42); GLUCOSE, FASTING 135 MG/DL (74-106); HDL CHOLESTEROL 55.9 MG/DL (>40); NON-HDL-C 268.1 MG/DL; POTASSIUM SERUM 4.3 MMOL/L (3.5-5.1); SODIUM LEVEL 138 MMOL/L (136-145); TOTAL PROTEIN 6.7 G/DL (5.7-8.2); TRIGLYCERIDES LEVEL 401 MG/DL (<150)
[2024-12-25 15:28] LABS: HEMOGLOBIN A1c 6.5 % (4.0-6.0)
== END ==
LOC: M SFHCADAM 08:13
PROVIDERS: ATTEND Physician Assistant
DX: Z85.46 Personal history of malignant neoplasm of prostate (principal); E78.00 Pure hypercholesterolemia, unspecified

== ENCOUNTER → 2025-01-23 | Outpatient (CLI) | payer MEDICARE | LOC: M SOG 06:50 | PROVIDERS: ATTEND Physician Assistant | DX: M70.21 Olecranon bursitis, right elbow (principal) ==

== ENCOUNTER → 2025-03-18 | Outpatient (CLI) | payer MEDICARE | LOC: M EKG 10:56 | PROVIDERS: ATTEND Physician Assistant | DX: I49.3 Ventricular premature depolarization (principal) ==

== ENCOUNTER → 2025-03-20 | Outpatient (REF) | payer MEDICARE ==
[2025-03-20 18:19] LABS: PLATELET COUNT, AUTOMATED 188 10^3/uL (150-450)
[2025-03-20 18:24] LABS: ALT/SGPT 31 U/L (7.0-40); AST/SGOT 22 U/L (<34); CALCIUM LEVEL 10.3 MG/DL (8.3-10.6); CARBON DIOXIDE LEVEL 23 MMOL/L (20-31); CHLORIDE LEVEL 104 MMOL/L (98-107); CREATININE FOR GFR 0.81 MG/DL (0.70-1.30); GLOMERULAR FILTRATION RATE > 90.0 (>42); POTASSIUM SERUM 4.6 MMOL/L (3.5-5.1); SODIUM LEVEL 140 MMOL/L (136-145)
[2025-03-20 18:59] LABS: ESTIMATED AVERAGE GLUCOSE 137.0 MG/DL (60-110)
== END ==
LOC: M SFHCADAM 11:14
PROVIDERS: ATTEND Physician Assistant
DX: E11.22 Type 2 diabetes mellitus with diabetic chronic kidney disease (principal)

== ENCOUNTER → 2025-04-16 | Outpatient (CLI) | payer MEDICARE ==
[~2025-04-16] MED LIST changes: +FLUO40CA PO; +TIRZ10PE SQ; +VASC1CAP2 PO
== END ==
LOC: M ADAMS 11:15
PROVIDERS: ATTEND Physician Assistant
DX: M25.552 Pain in left hip (principal)

== ENCOUNTER 2025-05-01 08:44 | Day surgery (SDC) | payer MEDICARE ==
[~2025-05-01] VITALS: Ht 180.3 cm; Wt 101.5 kg
[2025-05-01 11:00] VITALS: BP 128/92; O2SAT 94
== END 2025-05-01 11:10 | disposition home or self-care (01) ==
LOC: M OPP 08:44
PROVIDERS: ATTEND Internal Medicine Gastroenterology
DX: K62.7 Radiation proctitis (principal); K64.8 Other hemorrhoids; K57.30 Diverticulosis of large intestine without perforation or abscess without bleeding; Z86.0100 Personal history of colon polyps, unspecified; G47.30 Sleep apnea, unspecified; Z88.0 Allergy status to penicillin; Z88.1 Allergy status to other antibiotic agents; Z88.8 Allergy status to other drugs, medicaments and biological substances; Z79.82 Long term (current) use of aspirin; Z79.85 Long-term (current) use of injectable non-insulin antidiabetic drugs; Z79.84 Long term (current) use of oral hypoglycemic drugs; Z79.899 Other long term (current) drug therapy; J45.909 Unspecified asthma, uncomplicated

== ENCOUNTER 2025-06-06 14:14 | Inpatient (IN) | payer MEDICARE ==
[~2025-06-06] VITALS: Ht 180.3 cm; Wt 98.7 kg
[2025-06-06] MEDS: ACETAMINOPHEN 500 MG TAB PO ONE (15:41)
[2025-06-06] MEDS: TETANUS/DIPHTH/ACEL. PERTUSSIS 0.5 ML SYR IM.IMMUN ONE (15:43)
[2025-06-06 16:46] LABS: BASO # 0.0 10^3/uL (0.0-0.2); BASO % 0.1 % (0.0-1.0); EOS # 0.1 10^3/uL (0.0-0.5); EOS % 1.1 % (0.0-3.0); LYMPH # 0.9 10^3/uL (1.5-5.0); LYMPH % 9.4 % (24.0-44.0); MONO # 0.6 10^3/uL (0.0-0.8); MONO % 6.8 % (2.0-8.0); NEUTROPHILS # 7.5 10^3/uL (1.5-8.5); NEUTROPHILS % 82.1 % (36.0-66.0); PLATELET COUNT, AUTOMATED 208 10^3/uL (150-450)
[2025-06-06] MEDS: levETIRAcetam INJection 1,000 MG in IV 1 EA IV ONE (17:04)
[2025-06-06 17:12] LABS: ALT/SGPT 35 U/L (7.0-40); AST/SGOT 23 U/L (<34); CALCIUM LEVEL 9.7 MG/DL (8.3-10.6); CARBON DIOXIDE LEVEL 25 MMOL/L (20-31); CHLORIDE LEVEL 103 MMOL/L (98-107); CREATININE FOR GFR 0.79 MG/DL (0.70-1.30); GLOMERULAR FILTRATION RATE > 90.0 (>42); POTASSIUM SERUM 4.2 MMOL/L (3.5-5.1); SODIUM LEVEL 138 MMOL/L (136-145)
[2025-06-06] MEDS ORDERED: GLUCAGON INJ 1 MG VIAL SC PRN (17:15)
[2025-06-06] MEDS ORDERED: GLUCOSE 4 GM CHEW PO PRN (17:15)
[2025-06-06] MEDS ORDERED: DEXTROSE 50% 50 ML SYRINGE IV PRN (17:15)
[2025-06-06] MEDS: NS IV ONE (17:24)
[2025-06-06] MEDS: DESMOPRESSIN ACETATE IV ONE (17:24)
[2025-06-06 17:27] LABS: INR 0.95
[2025-06-06] MEDS: INSULIN LISPRO (NovoLOG) PER UNIT SC SCH ×2 (18:45→21:00)
[2025-06-06] MEDS ORDERED: METR0.7526 TOP (19:18)
[2025-06-06] MEDS ORDERED: CARV3.12 PO (19:18)
[2025-06-06] MEDS ORDERED: ELID1CRE11 TOP (19:18)
[2025-06-06] MEDS ORDERED: FLUT05CR TOP (19:18)
[2025-06-06] MEDS ORDERED: IVERMECTIN TOP (19:18)
[2025-06-06] MEDS ORDERED: FLUO60TA16 PO (19:18)
[2025-06-06] MEDS ORDERED: LISI5TAB11 PO (19:18)
[2025-06-06] MEDS ORDERED: HOME MED LIST COMPLETE! XX SCH (19:20)
[2025-06-06 20:52] VITALS: BP 138/65; TEMP 99.4; O2SAT 96
[2025-06-06 23:00] VITALS: O2SAT 97
[2025-06-07] VITALS (16 sets, daily range): BP systolic 110–135; BP diastolic 55–72; TEMP 97.5–98.7; O2SAT 92–98
[2025-06-07] MEDS: ACETAMINOPHEN 325 MG TAB PO PRN (01:09)
[2025-06-07 04:44] LABS: PLATELET COUNT, AUTOMATED 192 10^3/uL (150-450)
[2025-06-07 05:12] LABS: CALCIUM LEVEL 9.2 MG/DL (8.3-10.6); CARBON DIOXIDE LEVEL 24 MMOL/L (20-31); CHLORIDE LEVEL 104 MMOL/L (98-107); CREATININE FOR GFR 0.79 MG/DL (0.70-1.30); GLOMERULAR FILTRATION RATE > 90.0 (>42); MAGNESIUM LEVEL 1.9 MG/DL (1.8-2.4); POTASSIUM SERUM 4.1 MMOL/L (3.5-5.1); SODIUM LEVEL 133 MMOL/L (136-145)
[2025-06-07] MEDS ORDERED: ADVAIR HFA 45/21 MCG INHALER INH PRN (07:25)
[2025-06-07] MEDS: GABAPENTIN 300 MG CAP PO SCH (08:45)
[2025-06-07] MEDS: ATORVASTATIN 20 MG TAB PO SCH (08:45)
[2025-06-07] MEDS: buPROPion **XL** 150 MG TABLET PO SCH (08:45)
[2025-06-07] MEDS: FLUoxetine 20 MG CAP PO SCH (08:46)
[2025-06-07] MEDS ORDERED: KEPP1TAB PO (13:08)
[2025-06-07] MEDS ORDERED: PNEUMOC 21-VAL CONJ-DIP CRM/PF 0.5 ML SYRINGE IM.IMMUN ONE (17:00)
[2025-06-07] MEDS ORDERED: FLUZONE HIGH DOSE (65+) 0.5 ML SYRINGE (25-26) IM.IMMUN ONE (17:00)
== END 2025-06-07 16:38 | disposition home or self-care (01) | DRG 84 ==
LOC: M ED 14:14 → EDBD 14:14 → M ED INP 14:15 → M PCU 20:52 → OBSVTOIN 06-07 09:44 → UNDODISOB 06-07 16:38
PROVIDERS: ADMIT Internal Medicine; ATTEND Internal Medicine
DX: S06.6X9A Traumatic subarachnoid hemorrhage with loss of consciousness of unspecified duration, initial encounter (principal); E11.610 Type 2 diabetes mellitus with diabetic neuropathic arthropathy; E11.40 Type 2 diabetes mellitus with diabetic neuropathy, unspecified; I50.9 Heart failure, unspecified; E78.5 Hyperlipidemia, unspecified; I11.0 Hypertensive heart disease with heart failure; J45.20 Mild intermittent asthma, uncomplicated; F41.9 Anxiety disorder, unspecified; G47.33 Obstructive sleep apnea (adult) (pediatric); M10.9 Gout, unspecified; S01.01XA Laceration without foreign body of scalp, initial encounter; Z79.82 Long term (current) use of aspirin; Z89.512 Acquired absence of left leg below knee; Z79.899 Other long term (current) drug therapy; Z88.0 Allergy status to penicillin; Z88.8 Allergy status to other drugs, medicaments and biological substances; W18.30XA Fall on same level, unspecified, initial encounter; Y92.017 Garden or yard in single-family (private) house as the place of occurrence of the external cause; Y93.89 Activity, other specified; Y99.8 Other external cause status

== ENCOUNTER → 2025-06-20 | Outpatient (CLI) | payer MEDICARE ==
[~2025-06-20] MED LIST changes: +CARV3.12 PO; +ELID1CRE11 TOP; +FLUO60TA16 PO; +FLUT05CR TOP; +IVERMECTIN TOP; +KEPP1TAB PO; +LISI5TAB11 PO
== END ==
LOC: M RAD 13:25
PROVIDERS: ATTEND Physician Assistant
DX: S06.6X1A Traumatic subarachnoid hemorrhage with loss of consciousness of 30 minutes or less, initial encounter (principal); Y92.014 Private driveway to single-family (private) house as the place of occurrence of the external cause; G31.9 Degenerative disease of nervous system, unspecified; R90.82 White matter disease, unspecified; S00.03XA Contusion of scalp, initial encounter; X58.XXXA Exposure to other specified factors, initial encounter; Y93.9 Activity, unspecified; Y99.9 Unspecified external cause status

== ENCOUNTER → 2025-07-01 | Outpatient (REF) | payer MEDICARE ==
[2025-07-01 18:32] LABS: ALT/SGPT 36 U/L (7.0-40); AST/SGOT 21 U/L (<34); CALCIUM LEVEL 10.0 MG/DL (8.3-10.6); CARBON DIOXIDE LEVEL 28 MMOL/L (20-31); CHLORIDE LEVEL 102 MMOL/L (98-107); CREATININE FOR GFR 0.81 MG/DL (0.70-1.30); GLOMERULAR FILTRATION RATE > 90.0 (>42); POTASSIUM SERUM 4.7 MMOL/L (3.5-5.1); SODIUM LEVEL 137 MMOL/L (136-145)
[2025-07-01 18:55] LABS: ESTIMATED AVERAGE GLUCOSE 123.0 MG/DL (60-110)
== END ==
LOC: M SFHCADAM 13:34
PROVIDERS: ATTEND Physician Assistant
DX: E11.42 Type 2 diabetes mellitus with diabetic polyneuropathy (principal); Z89.512 Acquired absence of left leg below knee; G47.33 Obstructive sleep apnea (adult) (pediatric); E78.00 Pure hypercholesterolemia, unspecified; E66.01 Morbid (severe) obesity due to excess calories

== ENCOUNTER 2025-07-11 20:23 | Inpatient (IN) | payer MEDICARE ==
[~2025-07-11] VITALS: Ht 180.3 cm; Wt 92.6 kg
[2025-07-11 22:29] LABS: BASO # 0.0 10^3/uL (0.0-0.2); BASO % 0.2 % (0.0-1.0); EOS # 0.1 10^3/uL (0.0-0.5); EOS % 1.5 % (0.0-3.0); LYMPH # 1.3 10^3/uL (1.5-5.0); LYMPH % 13.4 % (24.0-44.0); MONO # 0.9 10^3/uL (0.0-0.8); MONO % 9.7 % (2.0-8.0); NEUTROPHILS # 7.2 10^3/uL (1.5-8.5); NEUTROPHILS % 74.9 % (36.0-66.0); PLATELET COUNT, AUTOMATED 241 10^3/uL (150-450)
[2025-07-11 22:37] LABS: CK-MB VALUE MASS 3.4 NG/ML (<3.6)
[2025-07-11 22:39] LABS: ALT/SGPT 37.0 U/L (7.0-40); AST/SGOT 29.0 U/L (<34); CALCIUM LEVEL 10.8 MG/DL (8.3-10.6); CARBON DIOXIDE LEVEL 24.0 MMOL/L (20-31); CHLORIDE LEVEL 101.0 MMOL/L (98-107); CPK CREATINE PHOSPHOKINASE 276.0 U/L (46-171); CREATININE FOR GFR 1.51 MG/DL (0.70-1.30); GLOMERULAR FILTRATION RATE 48.5 (>42); MB/CK RELATIVE INDEX 1.23 (< OR =4); POTASSIUM SERUM 5.1 MMOL/L (3.5-5.1); SODIUM LEVEL 135.0 MMOL/L (136-145)
[2025-07-11 22:41] LABS: FREE T4 1.69 NG/DL (0.89-1.76)
[2025-07-11 23:05] LABS: INR 1.06
[2025-07-12 03:57] LABS: KETONE, URINE AUTO RFX NEGATIVE (NEGATIVE); LEUKOCYTE ESTERASE UR AUTO RFX NEGATIVE (NEGATIVE); MUCUS, URINE RFX MODERATE (NEGATIVE); NITRITE, URINE AUTO RFX NEGATIVE (NEGATIVE); RBC, URINE AUTO RFX 2 /HPF (0-3); SQUAM EPITHELIAL CELL UR AURFX 1 /HPF (0-6); WBC, URINE AUTO RFX 5 /HPF (0-3)
[2025-07-12] MEDS: LevoFLOXacin IV 750 MG in IV 1 EA IV ONE (06:08)
[2025-07-12] MEDS ORDERED: MOM 30 ML SUSPENSION UDC PO PRN (06:20)
[2025-07-12] MEDS ORDERED: ACETAMINOPHEN 325 MG TAB PO PRN (06:20)
[2025-07-12] MEDS: NS (Normal Saline) 0.9% 1,000 ML IV ONE (08:19)
[2025-07-12 08:20] VITALS: BP 145/73; TEMP 98.7; O2SAT 92
[2025-07-12] MEDS: ONDANSETRON 4MG TAB PO PRN (08:42)
[2025-07-12] MEDS: DOCUSATE SODIUM 100 MG CAPSULE PO SCH (09:00)
[2025-07-12 10:23] LABS: BASO # 0.0 10^3/uL (0.0-0.2); BASO % 0.3 % (0.0-1.0); EOS # 0.1 10^3/uL (0.0-0.5); EOS % 1.3 % (0.0-3.0); LYMPH # 0.7 10^3/uL (1.5-5.0); LYMPH % 9.7 % (24.0-44.0); MONO # 0.6 10^3/uL (0.0-0.8); MONO % 8.4 % (2.0-8.0); NEUTROPHILS # 6.0 10^3/uL (1.5-8.5); NEUTROPHILS % 79.8 % (36.0-66.0); PLATELET COUNT, AUTOMATED 189 10^3/uL (150-450)
[2025-07-12 10:50] LABS: CALCIUM LEVEL 8.9 MG/DL (8.3-10.6); CARBON DIOXIDE LEVEL 23.0 MMOL/L (20-31); CHLORIDE LEVEL 101.0 MMOL/L (98-107); CREATININE FOR GFR 1.04 MG/DL (0.70-1.30); GLOMERULAR FILTRATION RATE 75.8 (>42); POTASSIUM SERUM 4.4 MMOL/L (3.5-5.1); SODIUM LEVEL 133.0 MMOL/L (136-145)
[2025-07-12] MEDS: INSULIN LISPRO (NovoLOG) PER UNIT SC SCH ×3 (12:00→20:48)
[2025-07-12] MEDS ORDERED: GLUCOSE 4 GM CHEW PO PRN (12:15)
[2025-07-12] MEDS ORDERED: GLUCAGON INJ 1 MG VIAL SC PRN (12:15)
[2025-07-12] MEDS ORDERED: DEXTROSE 50% 50 ML SYRINGE IV PRN (12:15)
[2025-07-12] MEDS ORDERED: DOXY200C PO (12:18)
[2025-07-12] MEDS ORDERED: HOME MED LIST COMPLETE! XX SCH (12:20)
[2025-07-12 12:30] VITALS: BP 160/54; TEMP 99.2; O2SAT 100
[2025-07-12] MEDS ORDERED: ONDANSETRON 4MG TAB PO PRN (12:45)
[2025-07-12] MEDS: dexAMETHasone 4 MG/ML 1 ML VIAL IV ONE (17:15)
[2025-07-12 20:00] VITALS: BP 164/84; TEMP 99.3; O2SAT 93
[2025-07-12] MEDS: OLANZapine 5 MG TAB PO SCH (20:53)
[2025-07-12] MEDS: HEPARIN SOD 5000 UNITS/ML 1 ML VIAL/SYRINGE SQ SCH (20:53)
[2025-07-13 04:17] VITALS: BP 156/90; TEMP 98.3; O2SAT 94
[2025-07-13 06:00] LABS: PLATELET COUNT, AUTOMATED 231 10^3/uL (150-450)
[2025-07-13 06:22] LABS: ALT/SGPT 38 U/L (7.0-40); AST/SGOT 28 U/L (<34); CALCIUM LEVEL 9.6 MG/DL (8.3-10.6); CARBON DIOXIDE LEVEL 22 MMOL/L (20-31); CHLORIDE LEVEL 101 MMOL/L (98-107); CREATININE FOR GFR 0.85 MG/DL (0.70-1.30); GLOMERULAR FILTRATION RATE > 90.0 (>42); MAGNESIUM LEVEL 2.0 MG/DL (1.8-2.4); POTASSIUM SERUM 4.5 MMOL/L (3.5-5.1); SODIUM LEVEL 135 MMOL/L (136-145)
[2025-07-13] MEDS: LevoFLOXacin IV 750 MG in IV 1 EA IV SCH (09:25)
[2025-07-13] MEDS ORDERED: metroNIDAZOLE 0.75% CREAM 45 GM TOP PRN (10:05)
[2025-07-13] MEDS ORDERED: ADVAIR HFA 45/21 MCG INHALER INH PRN (10:05)
[2025-07-13] MEDS: FLUoxetine 20 MG CAP PO SCH (11:17)
[2025-07-13] MEDS: ATORVASTATIN 20 MG TAB PO SCH (11:17)
[2025-07-13] MEDS: buPROPion **XL** 150 MG TABLET PO SCH (11:17)
[2025-07-13 12:00] VITALS: BP 113/76; TEMP 98.2; O2SAT 96
[2025-07-13] MEDS: GABAPENTIN 300 MG CAP PO SCH (17:46)
[2025-07-13 20:00] VITALS: BP_SYST 121; BP_SYST 177; BP_DIAS 64; BP_DIAS 79; TEMP 98.1; O2SAT 94; O2SAT 96
[2025-07-13 21:52] VITALS: BP 102/64
[2025-07-14] VITALS (9 sets, daily range): BP systolic 76–137; BP diastolic 48–79; TEMP 97.3–98.6; O2SAT 93–95
[2025-07-14] MEDS ORDERED: LevoFLOXacin IV 750 MG in IV 1 EA IV SCH (06:00)
[2025-07-14 08:59] LABS: BASO # 0.0 10^3/uL (0.0-0.2); BASO % 0.3 % (0.0-1.0); EOS # 0.3 10^3/uL (0.0-0.5); EOS % 2.9 % (0.0-3.0); LYMPH # 1.4 10^3/uL (1.5-5.0); LYMPH % 16.0 % (24.0-44.0); MONO # 0.8 10^3/uL (0.0-0.8); MONO % 8.7 % (2.0-8.0); NEUTROPHILS # 6.3 10^3/uL (1.5-8.5); NEUTROPHILS % 71.3 % (36.0-66.0); PLATELET COUNT, AUTOMATED 270 10^3/uL (150-450)
[2025-07-14 09:25] LABS: CALCIUM LEVEL 10.0 MG/DL (8.3-10.6); CARBON DIOXIDE LEVEL 23.0 MMOL/L (20-31); CHLORIDE LEVEL 103.0 MMOL/L (98-107); CREATININE FOR GFR 1.28 MG/DL (0.70-1.30); GLOMERULAR FILTRATION RATE 59.1 (>42); POTASSIUM SERUM 4.9 MMOL/L (3.5-5.1); SODIUM LEVEL 138.0 MMOL/L (136-145)
[2025-07-14] MEDS: NS (Normal Saline) 0.9% 1,000 ML IV SCH (14:01)
[2025-07-14 17:11] LABS: VENOUS PH 7.416 UNITS (7.330-7.430)
[2025-07-14 17:12] LABS: VENOUS BASE EXCESS -1.5 (-2.0-2.0); VENOUS HCO3 22.4 MMOL/L (23.0-27.0); VENOUS O2 SATURATION 98.8 % (60.0-80.0); VENOUS PARTIAL PRESSURE CO2 35.6 mmHg (38.0-50.0); VENOUS PARTIAL PRESSURE O2 136.9 mmHg (30.0-50.0); VENOUS STANDARD HCO3 23.3 MMOL/L; VENOUS TOTAL CO2 23.5 MMOL/L (24.0-28.0)
[2025-07-14] MEDS: POLYETHYLENE GLYCOL 238 GM BOTTLE PO ONE (18:23)
[2025-07-14] MEDS: SENNOSIDES/DOCUSATE SODIUM 8.6 MG/50MG TAB PO SCH (21:00)
[2025-07-14] MEDS: NS (Normal Saline) 0.9% 1,000 ML IV ONE (21:43)
[2025-07-14 23:46] LABS: APPEARANCE, URINE HAZY (CLEAR); BACTERIA, URINE AUTO NEGATIVE (NEGATIVE); BILIRUBIN, URINE AUTO NEGATIVE (NEGATIVE); BLOOD, URINE BLOOD NEGATIVE (NEGATIVE); GLUCOSE, URINE (UA) AUTO 1+ mg/dL (NEGATIVE); KETONE, URINE AUTO NEGATIVE (NEGATIVE); LEUKOCYTE ESTERASE, URINE AUTO NEGATIVE (NEGATIVE); MUCUS, URINE SMALL (NEGATIVE); NITRITE, URINE AUTO NEGATIVE (NEGATIVE); PROTEIN, URINE AUTO 1+ mg/dL (NEGATIVE); RBC, URINE AUTO 1 /HPF (0-3); SPECIFIC GRAVITY URINE AUTO 1.023 (1.002-1.035); SQUAMOUS EPITHELIAL CELL UR AU 0 /HPF (0-6); UROBILINOGEN, URINE AUTO 0.2 mg/dL (0.0-2.0); WBC, URINE AUTO 1 /HPF (0-3)
[2025-07-15 00:50] VITALS: BP 92/58
[2025-07-15 04:19] VITALS: BP 86/58; TEMP 97.2; O2SAT 96
[2025-07-15] MEDS: NS (Normal Saline) 0.9% 1,000 ML IV ONE ×2 (04:55→08:27)
[2025-07-15 06:16] VITALS: BP 102/60
[2025-07-15 06:57] LABS: PLATELET COUNT, AUTOMATED 200 10^3/uL (150-450)
[2025-07-15 07:06] LABS: ALT/SGPT 43.0 U/L (7.0-40); AST/SGOT 53.0 U/L (<34); CALCIUM LEVEL 8.4 MG/DL (8.3-10.6); CARBON DIOXIDE LEVEL 23.0 MMOL/L (20-31); CHLORIDE LEVEL 107.0 MMOL/L (98-107); CREATININE FOR GFR 1.34 MG/DL (0.70-1.30); GLOMERULAR FILTRATION RATE 55.9 (>42); POTASSIUM SERUM 4.7 MMOL/L (3.5-5.1); SODIUM LEVEL 139.0 MMOL/L (136-145)
[2025-07-15 08:45] VITALS: BP 117/62
[2025-07-15] MEDS: MIRALAX *UNIT DOSE* 17 GM PACKET PO SCH (08:47)
[2025-07-15 12:22] VITALS: BP 108/61; TEMP 98.7; O2SAT 92
[2025-07-15] MEDS: TAMSULOSIN 0.4 MG CAP PO ONE (12:50)
[2025-07-15] MEDS: GABAPENTIN 300 MG CAP PO SCH (15:20)
[2025-07-15 21:01] VITALS: BP 114/58; TEMP 98.7; O2SAT 92
[2025-07-16 05:25] VITALS: BP 123/65; TEMP 98.2; O2SAT 97
[2025-07-16] MEDS ORDERED: POLYVINYL ALCOHOL OPHTH SOLN 15ML (LIQUITEARS) OU PRN (07:50)
[2025-07-16 08:28] LABS: BASO # 0.0 10^3/uL (0.0-0.2); BASO % 0.2 % (0.0-1.0); EOS # 0.2 10^3/uL (0.0-0.5); EOS % 3.6 % (0.0-3.0); LYMPH # 0.7 10^3/uL (1.5-5.0); LYMPH % 16.5 % (24.0-44.0); MONO # 0.3 10^3/uL (0.0-0.8); MONO % 7.7 % (2.0-8.0); NEUTROPHILS # 3.0 10^3/uL (1.5-8.5); NEUTROPHILS % 71.5 % (36.0-66.0); PLATELET COUNT, AUTOMATED 166 10^3/uL (150-450)
[2025-07-16] MEDS: TAMSULOSIN 0.4 MG CAP PO SCH (08:44)
[2025-07-16 08:53] LABS: MAGNESIUM LEVEL 1.8 MG/DL (1.8-2.4)
[2025-07-16 09:07] LABS: ALT/SGPT 50 U/L (7.0-40); AST/SGOT 54 U/L (<34); CALCIUM LEVEL 8.6 MG/DL (8.3-10.6); CARBON DIOXIDE LEVEL 23 MMOL/L (20-31); CHLORIDE LEVEL 109 MMOL/L (98-107); CREATININE FOR GFR 0.83 MG/DL (0.70-1.30); GLOMERULAR FILTRATION RATE > 90.0 (>42); POTASSIUM SERUM 4.2 MMOL/L (3.5-5.1); SODIUM LEVEL 140 MMOL/L (136-145)
[2025-07-16] MEDS: ASPIRIN 81 MG CHEWABLE TABLET PO SCH (10:47)
[2025-07-16 11:29] VITALS: BP 137/69; TEMP 98.6; O2SAT 95
[2025-07-16 12:43] VITALS: O2SAT 96
[2025-07-16 19:43] VITALS: BP 115/55; TEMP 98.4; O2SAT 95
[2025-07-17 04:14] VITALS: BP 106/61; TEMP 97.9; O2SAT 98
[2025-07-17] MEDS ORDERED: TAMS-18 PO (09:35)
[2025-07-17] MEDS ORDERED: ASPI81CH8 PO (09:35)
[2025-07-17] MEDS ORDERED: LEVO75TAB PO (09:35)
[2025-07-17] MEDS ORDERED: GABA-1172 PO (09:35)
== END 2025-07-17 12:50 | DRG 178 ==
LOC: M ED 20:23 → M ED INP 07-12 06:21 → EEVIPCON 07-12 06:21 → M MSPAV 07-12 08:26
PROVIDERS: ADMIT Student in an Organized Health Care Education/Training Program; ATTEND Internal Medicine
DX: J15.69 Pneumonia due to other Gram-negative bacteria (principal); N17.9 Acute kidney failure, unspecified; S22.070A Wedge compression fracture of T9-T10 vertebra, initial encounter for closed fracture; J98.11 Atelectasis; E11.42 Type 2 diabetes mellitus with diabetic polyneuropathy; I95.9 Hypotension, unspecified; I50.9 Heart failure, unspecified; I11.0 Hypertensive heart disease with heart failure; E78.5 Hyperlipidemia, unspecified; R33.9 Retention of urine, unspecified; J45.909 Unspecified asthma, uncomplicated; G47.33 Obstructive sleep apnea (adult) (pediatric); Z89.512 Acquired absence of left leg below knee; M10.9 Gout, unspecified; Z85.46 Personal history of malignant neoplasm of prostate; Z92.3 Personal history of irradiation; F39 Unspecified mood [affective] disorder; Z79.84 Long term (current) use of oral hypoglycemic drugs; Z79.899 Other long term (current) drug therapy; Z88.0 Allergy status to penicillin; Z88.1 Allergy status to other antibiotic agents; Z88.8 Allergy status to other drugs, medicaments and biological substances; W19.XXXA Unspecified fall, initial encounter; Y92.9 Unspecified place or not applicable

== ENCOUNTER → 2025-07-21 | Outpatient (REF) ==
[~2025-07-21] MED LIST changes: +ASPI81CH8 PO; -BACTDSTA PO; +DOXY200C PO; -FISH10005 PO; +FISH1CAP38 PO; +GABA-1172 PO; +LEVO75TAB PO; +SULF-8 PO; +TAMS-18 PO
[2025-07-21 11:22] LABS: PLATELET COUNT, AUTOMATED 243 10^3/uL (150-450)
[2025-07-21 12:26] LABS: CALCIUM LEVEL 10.0 MG/DL (8.3-10.6); CARBON DIOXIDE LEVEL 24.0 MMOL/L (20-31); CHLORIDE LEVEL 103.0 MMOL/L (98-107); CREATININE FOR GFR 0.96 MG/DL (0.70-1.30); GLOMERULAR FILTRATION RATE 83.5 (>42); POTASSIUM SERUM 4.2 MMOL/L (3.5-5.1); SODIUM LEVEL 141.0 MMOL/L (136-145)
== END ==
PROVIDERS: ATTEND Internal Medicine
DX: E11.9 Type 2 diabetes mellitus without complications (principal)

== ENCOUNTER → 2025-07-28 | Outpatient (REF) ==
[2025-07-28 10:13] LABS: PLATELET COUNT, AUTOMATED 235 10^3/uL (150-450)
[2025-07-28 10:40] LABS: CALCIUM LEVEL 9.3 MG/DL (8.3-10.6); CARBON DIOXIDE LEVEL 24 MMOL/L (20-31); CHLORIDE LEVEL 104 MMOL/L (98-107); CREATININE FOR GFR 0.77 MG/DL (0.70-1.30); GLOMERULAR FILTRATION RATE > 90.0 (>42); POTASSIUM SERUM 4.1 MMOL/L (3.5-5.1); SODIUM LEVEL 140 MMOL/L (136-145)
== END ==
PROVIDERS: ATTEND Internal Medicine
DX: E11.9 Type 2 diabetes mellitus without complications (principal)

== ENCOUNTER → 2025-08-06 | Outpatient (REF) ==
[2025-08-06 14:22] LABS: PLATELET COUNT, AUTOMATED 196 10^3/uL (150-450)
[2025-08-06 14:51] LABS: CALCIUM LEVEL 9.1 MG/DL (8.3-10.6); CARBON DIOXIDE LEVEL 24 MMOL/L (20-31); CHLORIDE LEVEL 107 MMOL/L (98-107); CREATININE FOR GFR 0.73 MG/DL (0.70-1.30); GLOMERULAR FILTRATION RATE > 90.0 (>42); POTASSIUM SERUM 4.5 MMOL/L (3.5-5.1); SODIUM LEVEL 141 MMOL/L (136-145)
== END ==
PROVIDERS: ATTEND Internal Medicine
DX: E11.9 Type 2 diabetes mellitus without complications (principal)

== ENCOUNTER 2025-08-25 00:50 | Emergency (ER) | payer MEDICARE ==
[~2025-08-25] VITALS: Ht 180.3 cm; Wt 92.3 kg
[2025-08-25 00:59] VITALS: TEMP 98.8
[2025-08-25 01:31] LABS: BASO # 0.0 10^3/uL (0.0-0.2); BASO % 0.2 % (0.0-1.0); EOS # 0.1 10^3/uL (0.0-0.5); EOS % 0.5 % (0.0-3.0); LYMPH # 0.6 10^3/uL (1.5-5.0); LYMPH % 4.8 % (24.0-44.0); MONO # 0.7 10^3/uL (0.0-0.8); MONO % 5.3 % (2.0-8.0); NEUTROPHILS # 11.6 10^3/uL (1.5-8.5); NEUTROPHILS % 88.4 % (36.0-66.0); PLATELET COUNT, AUTOMATED 222 10^3/uL (150-450)
[2025-08-25 01:42] LABS: CALCIUM LEVEL 9.8 MG/DL (8.3-10.6); CARBON DIOXIDE LEVEL 22.0 MMOL/L (20-31); CHLORIDE LEVEL 102.0 MMOL/L (98-107); CREATININE FOR GFR 0.91 MG/DL (0.70-1.30); GLOMERULAR FILTRATION RATE 89.0 (>42); POTASSIUM SERUM 4.9 MMOL/L (3.5-5.1); SODIUM LEVEL 135.0 MMOL/L (136-145)
[2025-08-25 04:54] LABS: CK-MB VALUE MASS 3.3 NG/ML (<3.6)
[2025-08-25 05:02] LABS: CPK CREATINE PHOSPHOKINASE 118.0 U/L (46-171); MB/CK RELATIVE INDEX 2.79 (< OR =4)
[2025-08-25] MEDS ORDERED: ISOVUE-370 76% 100 ML VIAL As Ordered ONE (05:54)
[2025-08-25 06:16] LABS: CK-MB VALUE MASS 3.5 NG/ML (<3.6)
[2025-08-25 06:23] LABS: CPK CREATINE PHOSPHOKINASE 126.0 U/L (46-171); MB/CK RELATIVE INDEX 2.77 (< OR =4)
[2025-08-25] MEDS: ASPIRIN 81 MG CHEWABLE TABLET PO ONE (07:43)
[2025-08-25] MEDS: HEPARIN SOD 5000 UNITS/ML 1 ML VIAL/SYRINGE IV ONE (07:50)
[2025-08-25] MEDS: HEPARIN DRIP 25,000 UNITS in IV 1 EA IV SCH (07:52)
[2025-08-25 11:45] VITALS: BP 105/72; O2SAT 95
== END 2025-08-25 12:16 | disposition short-term general hospital (02) ==
LOC: M ED 00:50 → EDBD 00:50 → M ED 12:16
DX: I21.4 Non-ST elevation (NSTEMI) myocardial infarction (principal); I50.22 Chronic systolic (congestive) heart failure; M25.78 Osteophyte, vertebrae; I11.0 Hypertensive heart disease with heart failure; E11.9 Type 2 diabetes mellitus without complications; J45.909 Unspecified asthma, uncomplicated; Z88.0 Allergy status to penicillin; Z88.1 Allergy status to other antibiotic agents; Z88.8 Allergy status to other drugs, medicaments and biological substances
CPT/HCPCS: 36415; 70450; 71045; 71275; 72125; 80047; 80048; 82550; 82553; 84484; 85025; 85730; 87486; 87581; 87633; 87798; 93005; 96374; 96375; 99285; J2060; Q9967